=== PATIENT | male | born 1965 | race Caucasian/White ===

== ENCOUNTER 2019-10-25 05:35 | Day surgery (SDC) | payer OTHER, SELFPAY | END 2019-10-25 10:15 | disposition home or self-care (01) | PROVIDERS: Family Provider Nurse Practitioner Family; Visit Provider Podiatrist Foot & Ankle Surgery | DX: S82.831A Other fracture of upper and lower end of right fibula, initial encounter for closed fracture (principal); W17.89XA Other fall from one level to another, initial encounter; Z87.891 Personal history of nicotine dependence; G47.30 Sleep apnea, unspecified; E78.5 Hyperlipidemia, unspecified; M19.90 Unspecified osteoarthritis, unspecified site; E11.42 Type 2 diabetes mellitus with diabetic polyneuropathy; G47.10 Hypersomnia, unspecified; Z90.49 Acquired absence of other specified parts of digestive tract; E11.22 Type 2 diabetes mellitus with diabetic chronic kidney disease; I12.9 Hypertensive chronic kidney disease with stage 1 through stage 4 chronic kidney disease, or unspecified chronic kidney disease; N18.2 Chronic kidney disease, stage 2 (mild); Z79.4 Long term (current) use of insulin | CPT/HCPCS: 27792; 73600; 76000; 80048; 82962; 85025; 96374; 96375; C1713 ×8; J0690; J1100; J2001; J2250; J2405; J2704; J2795; J3010 ×2; J3490 ==

== ENCOUNTER 2019-11-07 14:28 | Outpatient (CLI) | payer OTHER, SELFPAY | END 2019-11-07 14:29 | disposition home or self-care (01) | LOC: SPT 14:28 | PROVIDERS: Family Provider Nurse Practitioner Family; PCP Family Medicine; Visit Provider Podiatrist Foot & Ankle Surgery | DX: Z46.89 Encounter for fitting and adjustment of other specified devices (principal) | CPT/HCPCS: L4361 ==

== ENCOUNTER → 2019-11-22 14:28 | Outpatient (BNVA) | payer OTHER, SELFPAY | PROVIDERS: Family Provider Nurse Practitioner Family; PCP Family Medicine; Visit Provider Podiatrist Foot & Ankle Surgery | DX: Z48.89 Encounter for other specified surgical aftercare (principal); S82.831A Other fracture of upper and lower end of right fibula, initial encounter for closed fracture; X58.XXXA Exposure to other specified factors, initial encounter | CPT/HCPCS: 73610 ==

== ENCOUNTER 2019-12-13 15:35 | Outpatient (CLI) | payer BC, OTHER, SELFPAY | END 2019-12-13 15:36 | disposition home or self-care (01) | LOC: SPT 15:38 | PROVIDERS: PCP Family Medicine; Visit Provider Podiatrist Foot & Ankle Surgery | DX: Z46.89 Encounter for fitting and adjustment of other specified devices (principal) | CPT/HCPCS: 73610; L1902 ==

== ENCOUNTER 2020-02-28 12:31 | Inpatient (IN) | payer BC, SELFPAY ==
[2020-02-28] VITALS (7 sets, daily range): BP systolic 122–137; BP diastolic 62–93; PULSE 72–79; RESP 16–18; TEMP 36.5–36.8; O2SAT 95–99; BMI 31.4
--- NOTE | 2020-02-28 13:03 | ECG_ITS ---
Measurements Intervals [place] Rate: 70 P: 12 MT: 194 QRS: 10 QRSD: 87 T: 17 QT: 349 QTc: 377 SINUS RHYTHM No previous ECG available for comparison Electronically Signed On 02-28-2020 17:16:21 CDT by Richie Gonzalez M.D. [email or web address]
--- NOTE | 2020-02-28 13:04 | ED_ITS ---
Documented by User: KASSIDY Al 02/28/20 14:41 HPI - Extremity Problem General: Chief complaint: Extremity Problem,Nontraumatic Stated complaint: SYNCOPE Time Seen by Provider: 02/28/20 12:54 History of Present Illness: HPI Narrative: Patient sent over via ambulance from the Ortho clinic for admission for gangrene on his left #4 and 5 toe area and also had a vasovagal episode after he was told that he was to maybe have to have his toes cut off. Patient feels fine now denies any problems besides the infection on his 2 toes blood sugar has been high because infection MD Complaint: other (Infected toes) Onset (ago): day(s) Location: left and toe (4. And 5) Radiation: none Exacerbating factors: nothing Associated symptoms: Reports other (Had a vasovagal episode in the clinic today); Deny chest pain, fever(s) or rash Review of Systems Const: Denies: fever, chills or body aches Eyes: Denies: change in vision or blurry vision ENMT: Denies: throat pain or nasal congestion Card: Reports: syncope (Vasovagal episode at clinic after being told he is going to have to have 2 toes possibly amputated); Denies: chest pain or shortness of breath on exertion Resp: Denies: shortness of breath, productive cough or non-productive cough GI: Denies: abdominal pain, nausea or vomiting : Denies: difficulty urinating Musc: Denies: extremity pain Skin/Breast: Reports: skin swelling and sores (Left to outer toes); Denies: rash Neuro: Denies: headache Psych: Denies: anxiety or depression Sonny/Lymph: Denies: easy bruising PFSH ED PFSH: Medical History (Updated 02/28/20 @ 19:52 by Jay Antonio MD, [facility] – [place]) CKD (chronic kidney disease) stage 2, GFR 60-89 ml/min Colostomy hernia DDD (degenerative disc disease) Diabetic peripheral vascular disease Dyslipidemia Entrapment of right ulnar nerve Gout Hypersomnia Hypertension Lung nodule Vitiligo Surgical History (Updated 02/28/20 @ 16:16 by Jolly Johnston MD) H/O colectomy History of ankle surgery Social History Smoking and tobacco status: never smoked Alcohol intake: never Marital status: Current occupational status: employed 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 Const: COMMON NORMALS: no apparent distress, average body habitus and oriented x3 HENMT: COMMON NORMALS: normocephalic HEAD & SCALP: normal to inspection and normocephalic FACE & SINUS: normal facial exam Eye: COMMON NORMALS: conjunctivae normal GENERAL EYE: normal appearance of both eyes CONJUNCTIVA: Yes conjunctivae normal Neck/C-Spine: COMMON NORMALS: no JVD Chest: COMMONS NORMALS: inspection of chest normal Resp: COMMON NORMALS: normal respiratory effort and clear to auscultation bilaterally AUSCULTATION: clear to auscultation bilaterally Cardio: COMMON NORMALS: no JVD, regular rate and regular rhythm RATE: regular rate RHYTHM: regular rhythm GI: COMMON NORMALS: normal to inspection, nondistended, normoactive bowel sounds Extremity: COMMON NORMALS: normal to inspection and full ROM OTHER: Left foot with dressing in place placed by packaging assembler Neuro: COMMON NORMALS: oriented x3 Course Vital Signs: Vital signs: Vital Signs Temperature 98.1 F 02/28/20 12:38 Pulse Rate 72 02/28/20 19:43 Respiratory Rate 18 02/28/20 19:43 Blood Pressure 137/90 02/28/20 19:43 Pulse Oximetry 99 02/28/20 19:43 MDM - Extremity (Nontraumatic) MDM Narrative: Medical decision making narrative: Turned case over to Dr. Antonio shared with him patient's problems symptoms. Lab Data: Labs: Lab Results 02/28/20 02/28/20 02/28/20 Range/Units 13:28 13:28 13:28 WBC 7.7 (4.0-10.0) 10^3/ uL RBC 4.63 (4.1-5.3) 10^6/u L Hgb 14.0 (11.7-16.6) g/dL Hct 42.5 (42.0-52.0) % MCV 91.8 (80-94) fL MCH 30.2 (28.0-34.0) pg MCHC 32.9 (30.0-36.0) g/dL RDW 13.2 (12.1-15.1) % Plt Count 211 (130-400) 10^3/c mm MPV 10.9 H (7.4-10.4) fL Neut % (Auto) 53.8 % Lymph % (Auto) 18.5 % [place] % (Auto) 6.6 % Eos % (Auto) 19.9 % Baso % (Auto) 0.7 % Neut # (Auto) 4.1 (1.8-7.7) 10^3/u L Lymph # (Auto) 1.4 (0.8-4.8) 10^3/u L [place] # (Auto) 0.5 (0.2-0.9) 10^3/u L Eos # (Auto) 1.5 H (0.0-0.8) 10^3/u L Baso # (Auto) 0.1 (0.0-0.1) 10^3/u L Nucleated RBC % (a uto) 0 % Nucleated RBCs # 0.0 /100WBC Sodium 135 L (136-145) mmol/L Potassium 4.8 (3.5-5.1) mmol/L Chloride 97 L (98-107) mmol/L Carbon Dioxide 25 (22-29) mmol/L Anion Gap 17.8 (5-19) BUN 28 H (6-20) mg/dL Creatinine 1.5 H (0.7-1.2) mg/dL GFR Calculation 48.6 L (90-130) mL/min Glucose 332 H (65-115) mg/dL Calculated Osmolal ity 290 (285-295) mOsm/k g Lactic Acid 1.3 (0.5-2.2) mmol/L Calcium 10.8 H (8.5-10.5) mg/dL Total Bilirubin 0.5 (0.15-1.2) mg/dL AST 25 (0-40) U/L ALT 27 (0-41) U/L Alkaline Phosphata se 67 (40-130) IU/L Total Protein 7.3 (6.6-8.7) g/dL Albumin 3.7 (3.5-5.2) g/dL Globulin 3.6 (1.3-4.6) g/dL Urine Color (Yellow) Urine Appearance (CLEAR) Urine pH (5-7) Ur Specific Gravit y (1.005-1.030) Urine Protein (Negative) Urine Glucose (UA) (Normal) Urine Ketones (Negative) Urine Blood (Negative) Urine Nitrate (Negative) Urine Bilirubin (NEGATIVE) Urine Urobilinogen (Negative) mg/dL Ur Leukocyte Aaliyah ase (Negative) 02/28/20 Range/Units 14:15 WBC (4.0-10.0) 10^3/ uL RBC (4.1-5.3) 10^6/u L Hgb (11.7-16.6) g/dL Hct (42.0-52.0) % MCV (80-94) fL MCH (28.0-34.0) pg MCHC (30.0-36.0) g/dL RDW (12.1-15.1) % Plt Count (130-400) 10^3/c mm MPV (7.4-10.4) fL Neut % (Auto) % Lymph % (Auto) % [place] % (Auto) % Eos % (Auto) % Baso % (Auto) % Neut # (Auto) (1.8-7.7) 10^3/u L Lymph # (Auto) (0.8-4.8) 10^3/u L [place] # (Auto) (0.2-0.9) 10^3/u L Eos # (Auto) (0.0-0.8) 10^3/u L Baso # (Auto) (0.0-0.1) 10^3/u L Nucleated RBC % (a uto) % Nucleated RBCs # /100WBC Sodium (136-145) mmol/L Potassium (3.5-5.1) mmol/L Chloride (98-107) mmol/L Carbon Dioxide (22-29) mmol/L Anion Gap (5-19) BUN (6-20) mg/dL Creatinine (0.7-1.2) mg/dL GFR Calculation (90-130) mL/min Glucose (65-115) mg/dL Calculated Osmolal ity (285-295) mOsm/k g Lactic Acid (0.5-2.2) mmol/L Calcium (8.5-10.5) mg/dL Total Bilirubin (0.15-1.2) mg/dL AST (0-40) U/L ALT (0-41) U/L Alkaline Phosphata se (40-130) IU/L Total Protein (6.6-8.7) g/dL Albumin (3.5-5.2) g/dL Globulin (1.3-4.6) g/dL Urine Color Yellow (Yellow) Urine Appearance Clear (CLEAR) Urine pH 7 (5-7) Ur Specific Gravit y 1.010 (1.005-1.030) Urine Protein Neg (Negative) Urine Glucose (UA) 4+ H (Normal) Urine Ketones Negative (Negative) Urine Blood Neg (Negative) Urine Nitrate Negative (Negative) Urine Bilirubin Neg (NEGATIVE) Urine Urobilinogen Norm (Negative) mg/dL Ur Leukocyte Aaliyah ase Negative (Negative) EKG Data^: EKG 1: EKG interpretation date: 02/28/20 EKG interpretation time: 14:04 Interpretation: Normal sinus rhythm 70 bpm 194 ms on VT interval and QRS duration 77 ms Discharge Plan Discharge Patient Disposition: Admitted As Inpatient Admit Provider: Jolly Johnston Clinical Impression: Gangrene of left foot, Non-pressure chronic ulcer of other part of left foot with necrosis of muscle, Cellulitis of left foot Condition: Stable Interventions: ED Discharge Assessment Last Done: 02/28/20 19:43 ED Charges Last Done: 02/28/20 19:43 Discharge Date/Time: 02/28/20 19:44 Sign Out Sign Out Data: Patient Sign Out occurred on 02/28/20 at 17:59. Patient's care was discussed, and care was transferred from to Jay Antonio MD, [facility] – [place]. Coding Level of Care Code ED Humanities Division Chair for Chg Fwd Exam Comprehensive Documented by User: Jay Antonio MD, MSM 02/28/20 19:52 HPI - Extremity Problem General: Chief complaint: Extremity Problem,Nontraumatic Stated complaint: SYNCOPE Time Seen by Provider: 02/28/20 12:54 [facility] ED PFSH: Medical History (Updated 02/28/20 @ 19:52 by Jay Antonio MD, [facility] – [place]) CKD (chronic kidney disease) stage 2, GFR 60-89 ml/min Colostomy hernia DDD (degenerative disc disease) Diabetic peripheral vascular disease Dyslipidemia Entrapment of right ulnar nerve Gout Hypersomnia Hypertension Lung nodule Vitiligo Surgical History (Updated 02/28/20 @ 16:16 by Jolly Johnston MD) H/O colectomy History of ankle surgery Social History Smoking and tobacco status: never smoked Alcohol intake: never Marital status: Current occupational status: employed 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 Johnston. She is to hospitalist and she kindly accepted the patient to her service. Vital Signs: Vital signs: Vital Signs Temperature 98.1 F 02/28/20 12:38 Pulse Rate 72 02/28/20 19:43 Respiratory Rate 18 02/28/20 19:43 Blood Pressure 137/90 02/28/20 19:43 Pulse Oximetry 99 02/28/20 19:43 MDM - Extremity (Nontraumatic) 2 MDM Narrative: Medical decision making narrative: 54-year-old gentleman with a diabetic ulcer who was seen by the packaging assembler today. He requires amputation of some of his toes of his left foot secondary to gangrene. History and physical examination documented by the nurse practitioner. Kindly refer to his note for those. Lab Data: Labs: Lab Results 02/28/20 02/28/20 02/28/20 Range/Units 13:28 13:28 13:28 WBC 7.7 (4.0-10.0) 10^3/ uL RBC 4.63 (4.1-5.3) 10^6/u L Hgb 14.0 (11.7-16.6) g/dL Hct 42.5 (42.0-52.0) % MCV 91.8 (80-94) fL MCH 30.2 (28.0-34.0) pg MCHC 32.9 (30.0-36.0) g/dL RDW 13.2 (12.1-15.1) % Plt Count 211 (130-400) 10^3/c mm MPV 10.9 H (7.4-10.4) fL Neut % (Auto) 53.8 % Lymph % (Auto) 18.5 % [place] % (Auto) 6.6 % Eos % (Auto) 19.9 % Baso % (Auto) 0.7 % Neut # (Auto) 4.1 (1.8-7.7) 10^3/u L Lymph # (Auto) 1.4 (0.8-4.8) 10^3/u L [place] # (Auto) 0.5 (0.2-0.9) 10^3/u L Eos # (Auto) 1.5 H (0.0-0.8) 10^3/u L Baso # (Auto) 0.1 (0.0-0.1) 10^3/u L Nucleated RBC % (a uto) 0 % Nucleated RBCs # 0.0 /100WBC Sodium 135 L (136-145) mmol/L Potassium 4.8 (3.5-5.1) mmol/L Chloride 97 L (98-107) mmol/L Carbon Dioxide 25 (22-29) mmol/L Anion Gap 17.8 (5-19) BUN 28 H (6-20) mg/dL Creatinine 1.5 H (0.7-1.2) mg/dL GFR Calculation 48.6 L (90-130) mL/min Glucose 332 H (65-115) mg/dL Calculated Osmolal ity 290 (285-295) mOsm/k g Lactic Acid 1.3 (0.5-2.2) mmol/L Calcium 10.8 H (8.5-10.5) mg/dL Total Bilirubin 0.5 (0.15-1.2) mg/dL AST 25 (0-40) U/L ALT 27 (0-41) U/L Alkaline Phosphata se 67 (40-130) IU/L Total Protein 7.3 (6.6-8.7) g/dL Albumin 3.7 (3.5-5.2) g/dL Globulin 3.6 (1.3-4.6) g/dL Urine Color (Yellow) Urine Appearance (CLEAR) Urine pH (5-7) Ur Specific Gravit y (1.005-1.030) Urine Protein (Negative) Urine Glucose (UA) (Normal) Urine Ketones (Negative) Urine Blood (Negative) Urine Nitrate (Negative) Urine Bilirubin (NEGATIVE) Urine Urobilinogen (Negative) mg/dL Ur Leukocyte Aaliyah ase (Negative) 02/28/20 Range/Units 14:15 WBC (4.0-10.0) 10^3/ uL RBC (4.1-5.3) 10^6/u L Hgb (11.7-16.6) g/dL Hct (42.0-52.0) % MCV (80-94) fL MCH (28.0-34.0) pg MCHC (30.0-36.0) g/dL RDW (12.1-15.1) % Plt Count (130-400) 10^3/c mm MPV (7.4-10.4) fL Neut % (Auto) % Lymph % (Auto) % [place] % (Auto) % Eos % (Auto) % Baso % (Auto) % Neut # (Auto) (1.8-7.7) 10^3/u L Lymph # (Auto) (0.8-4.8) 10^3/u L [place] # (Auto) (0.2-0.9) 10^3/u L Eos # (Auto) (0.0-0.8) 10^3/u L Baso # (Auto) (0.0-0.1) 10^3/u L Nucleated RBC % (a uto) % Nucleated RBCs # /100WBC Sodium (136-145) mmol/L Potassium (3.5-5.1) mmol/L Chloride (98-107) mmol/L Carbon Dioxide (22-29) mmol/L Anion Gap (5-19) BUN (6-20) mg/dL Creatinine (0.7-1.2) mg/dL GFR Calculation (90-130) mL/min Glucose (65-115) mg/dL Calculated Osmolal ity (285-295) mOsm/k g Lactic Acid (0.5-2.2) mmol/L Calcium (8.5-10.5) mg/dL Total Bilirubin (0.15-1.2) mg/dL AST (0-40) U/L ALT (0-41) U/L Alkaline Phosphata se (40-130) IU/L Total Protein (6.6-8.7) g/dL Albumin (3.5-5.2) g/dL Globulin (1.3-4.6) g/dL Urine Color Yellow (Yellow) Urine Appearance Clear (CLEAR) Urine pH 7 (5-7) Ur Specific Gravit y 1.010 (1.005-1.030) Urine Protein Neg (Negative) Urine Glucose (UA) 4+ H (Normal) Urine Ketones Negative (Negative) Urine Blood Neg (Negative) Urine Nitrate Negative (Negative) Urine Bilirubin Neg (NEGATIVE) Urine Urobilinogen Norm (Negative) mg/dL Ur Leukocyte Aaliyah ase Negative (Negative) Discharge Plan Discharge Patient Disposition: Admitted As Inpatient Admit Provider: Jolly Johnston Clinical Impression: Gangrene of left foot, Non-pressure chronic ulcer of other part of left foot with necrosis of muscle, Cellulitis of left foot Condition: Stable Interventions: ED Discharge Assessment Last Done: 02/28/20 19:43 ED Charges Last Done: 02/28/20 19:43 Discharge Date/Time: 02/28/20 19:44 Sign Out Sign Out Data: Patient Sign Out occurred on 02/28/20 at 17:59. Patient's care was discussed, and care was transferred from to Jay Antonio MD, MSM. Coding Level of Care Code ED Humanities Division Chair for Jarod Fwd Exam Comprehensive
--- NOTE | 2020-02-28 13:04 | XR_ITS ---
WS: [id number] XR chest 1V portable [id number] REASON FOR EXAM: toe gangrene FINDINGS: The heart and mediastinal interfaces normal. The lung barcenas are well well aerated. No definite pneumonia, pleural effusion, pulmonary edema, or m ass effect. The hilum and apices are normal. XR/XR chest 1V portable [id number] IMPRESSION: Negative chest for active pathology.
--- NOTE | 2020-02-28 13:37 | CT_ITS ---
WS: [id number] CT LEFT FOOT WITHOUT CONTRAST. HISTORY: Gangrene/cellulitis toes 4,5 Technique: All CT scans at [facility] use at least one of these dose optimization techniq ues: automated exposure control; mA and/or kV adjustment per patient size (includes targeted exams wh ere dose is matched to clinical indication); or iterative reconstruction. DLP: 528.56 mGy.cm COMPARISON: None available. No fractures or subluxation. No significant changes in the bone to suggest osteomyelitis. There is mi ld soft tissue thickening around the midfoot and metatarsals. No foreign bodies. CT/CT foot LT wo con* [id number] IMPRESSION: 1. No osteomyelitis identified by CT. 2. Soft tissue edema consistent with cellulitis surrounding the mid and distal foot. No bone destruction. For further evaluation bones consider nonurgent MRI follow-up with contrast.
[2020-02-28 13:56] LABS: Basophils # 0.1 10^3/uL (0.0-0.1); Basophils % 0.7 %; Eosinophils # 1.5 10^3/uL (0.0-0.8); Eosinophils % 19.9 %; Hematocrit 42.5 % (42.0-52.0); Lymphocytes # 1.4 10^3/uL (0.8-4.8); Lymphocytes % 18.5 %; Mean Corpuscular HGB Conc 32.9 g/dL (30.0-36.0); Mean Corpuscular Hemoglobin 30.2 pg (28.0-34.0); Mean Corpuscular Volume 91.8 fL (80-94); Mean Platelet Volume 10.9 fL (7.4-10.4); Monocytes # 0.5 10^3/uL (0.2-0.9); Monocytes % 6.6 %; Neutrophils # 4.1 10^3/uL (1.8-7.7); Neutrophils % 53.8 %; Nucleated Red Blood Cells % 0 %; Platelet Count 211 10^3/cmm (130-400); Red Blood Count 4.63 10^6/uL (4.1-5.3); Red Cell Distribution Width 13.2 % (12.1-15.1); White Blood Count 7.7 10^3/uL (4.0-10.0)
[2020-02-28 14:03] LABS: Alanine Aminotransferase 27 U/L (0-41); Albumin Level 3.7 g/dL (3.5-5.2); Alkaline Phosphatase 67 IU/L (40-130); Anion Gap 17.8 (5-19); Aspartate Amino Transferase 25 U/L (0-40); Blood Urea Nitrogen 28 mg/dL (6-20); Calcium 10.8 mg/dL (8.5-10.5); Carbon Dioxide 25 mmol/L (22-29); Chloride 97 mmol/L (98-107); Globulin 3.6 g/dL (1.3-4.6); Glomerular Filtration Rate 48.6 mL/min (90-130); Glucose 332 mg/dL (65-115); Osmolality Calculated 290 mOsm/kg (285-295); Potassium 4.8 mmol/L (3.5-5.1); Sodium 135 mmol/L (136-145); Total Bilirubin 0.5 mg/dL (0.15-1.2); Total Protein 7.3 g/dL (6.6-8.7)
[2020-02-28 14:04] LABS: Lactic Sepsis W/Reflex 1.3 mmol/L (0.5-2.2)
--- NOTE | 2020-02-28 14:23 | PC.NURSE ---
PT AMBULATED TO RESTROOM , CHANGES COLOSTOMY BAG WITHOUT DIFFICULTY. GIVES CLEAN CATCH URINE SAMPLE.
[2020-02-28 14:25] LABS: Add Urine Microscopic? NO
[2020-02-28 15:05] LABS: Bilirubin Urine Neg (NEGATIVE); Blood Urine Neg (Negative); Glucose Urine UA 4+ (Normal); Ketones Urine Negative (Negative); Leukocyte Esterase Urine Negative (Negative); Nitrate Urine Negative (Negative); Protein Urine Neg (Negative); Urine Appearance Clear (CLEAR); Urine Color Yellow (Yellow); Urobilinogen Urine Norm (Negative); pH Urine 7 (5-7)
--- NOTE | 2020-02-28 16:02 | PM.HP ---
Providers/Chief Complaint Admitting Physician: Jolly Johnston MD Primary Care Provider: Josi Willis MD Chief Complaint: SYNCOPE History of Present Illness ..Hans Forbes is a 54 year old male with PMH CKD, ulecrative colitis s/p colectomy with colostomy 2014, diabetic peripheral vascular disease per chart review, HLD, gout, HTN, DM, lung nodule who follows with dr. yousif for ankle fracture on R leg that was repaired in Sep 2019. He states that at the end of last week he began to experience soreness and noticed redness at the left plantar forefoot on on Thursday(today is Thursday). Not remember any preceding trauma, however does state that he has been wearing slippers with a pencil and may have had some spine injuries. He saw Dr. Yousif in the clinic today and was noted to have a cellulitis of the forefoot, and also a gangrenous appearance in the fourth left webspace. Upon hearing the news of gangrene, and possibility of amputation, he started to feel very lightheaded and appears to have had a vasovagal episode in the clinic today. He [place] [facility] [place] Upon arrival to the ED he is noted to be completely awake alert and oriented. His blood pressure is stable at 136/79. Heart rate is 74/min. He denies any chest pain. He is saturating 96% on room air. . Glucose is at 330. He has not had a troponin drawn. He evidence of osteomyelitis. There is extensive soft tissue edema consistent with cellulitis surrounding the mid and distal foot. No bony destruction is noted. Cr is at 1.5, baseline 1.2 -1.4. no c/o fever. Review of Systems General: Reports: 10 or more systems reviewed and unremarkable except in HPI and below Const: Denies: fever, chills or body aches Eyes: Denies: change in vision, blurry vision or photophobia ENMT: Reports: hoarseness; Denies: throat pain, enlarged tonsils, painful swallowing or nasal congestion Card: Denies: chest pain, palpitations, irregular heart rhythm, edema, swelling of feet/ankles, lightheadedness, pre-syncope, shortness of breath on exertion or shortness of breath when lying down Resp: Denies: shortness of breath, productive cough, non-productive cough, wheezing, stridor, pain on inspiration, change in phlegm color, coughing up blood or chest congestion GI: Denies: abdominal pain, nausea, vomiting, vomiting blood, coffee grounds in vomit, difficulty swallowing, heartburn/indigestion, diarrhea, constipation, cramping, change in stool character, blood in stool or black tarry stool : Denies: flank pain, painful urination, urinary frequency, urinary urgency, urinary hesitancy or blood in urine Musc: Denies: neck pain, back pain, extremity pain, joint swelling, joint warmth or deformity Neuro: Denies: headache, numbness in extremities, weakness in extremities, changes in sensation, difficulty walking, frequent falls, dizziness, vertigo, behavioral changes, slurred speech or seizure-like activity Psych: Denies: anxiety, depression, suicidal ideation or homicidal ideation Endo: Denies: excessive urination, excessive thirst, tired all the time, cold intolerance or hot flashes Sonny/Lymph: Denies: easy bruising or easy bleeding Medications/Allergies Home Medications Medication Instructions Recorded Confirmed Last Taken Type calcium carbonate 600 mg calcium 600 mg PO QPM 11/07/19 02/28/20 Unknown History (1,500 mg) tablet cam walker #1 ea 11/07/19 02/28/20 Unknown Rx PTT SUPINATOR #1 ea 12/13/19 02/28/20 Unknown Rx enalapril maleate 20 mg tablet 20 mg PO BID #180 tab 12/28/19 02/28/20 02/28/20 Rx sitagliptin 50 mg-metformin 1,000 1 tab PO BID #60 tab 01/17/20 02/28/20 02/28/20 Rx mg tablet pregabalin 150 mg capsule 150 mg PO TID #90 cap 01/30/20 02/28/20 02/28/20 Rx ciprofloxacin HCl 500 mg tablet 500 mg PO Q12H 14 Days #28 tab 02/27/20 02/28/20 02/28/20 02:00 Rx doxycycline hyclate 100 mg capsule 100 mg PO BID 14 Days #28 cap 02/27/20 02/28/20 02/28/20 02:00 Rx Fish Oil 1 cap PO BID 02/28/20 02/28/20 Unknown History Life Renew 2 cap PO BID 02/28/20 02/28/20 Unknown History Zyrtec 10 mg PO DAILY 02/28/20 02/28/20 Unknown History allopurinol 300 mg PO DAILY 02/28/20 02/28/20 Unknown History aspirin 325 mg PO DAILY 02/28/20 02/28/20 Unknown History cinnamon bark [Cinnamon] 1,000 mg PO BID 02/28/20 02/28/20 Unknown History glimepiride 4 mg PO BID 02/28/20 02/28/20 02/28/20 History magnesium oxide See Rx Instructions .ROUTE .COMPLEX 02/28/20 02/28/20 Unknown History multivit with min-folic acid 200 mcg PO BID 02/28/20 02/28/20 Unknown History [Adult Multivitamin Gummies] potassium gluconate 595 mg PO DAILY 02/28/20 02/28/20 Unknown History Allergies Allergy/AdvReac Type Severity Reaction Status Date / Time Sulfa (Sulfonamide Allergy Unknown Unknown Verified 02/28/20 11:25 Antibiotics) PFSH Acute PFSH: Medical History (Updated 02/28/20 @ 16:19 by Jolly Johnston MD) CKD (chronic kidney disease) stage 2, GFR 60-89 ml/min Colostomy hernia DDD (degenerative disc disease) Diabetic peripheral vascular disease Dyslipidemia Entrapment of right ulnar nerve Gout Hypersomnia Hypertension Lung nodule Vitiligo Surgical History (Updated 02/28/20 @ 16:16 by Jolly Johnston MD) H/O colectomy History of ankle surgery Social History Smoking and tobacco status: never smoked Alcohol intake: never Marital status: Current occupational status: employed 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 Based on the pictures that patient has shown me, there appears to be extensive erythema and swelling over the entire left forefoot. Is also noted to be some pus tracking along the plantar surface of the foot especially in the fourth interdigital space. Data : 02/28/20 13:28 02/28/20 13:28 Micro: Microbiology 02/28/20 13:28 Blood Culture - Preliminary Blood SPECIMEN COLLECTED 02/28/20 13:40 Blood Culture - Preliminary Blood SPECIMEN COLLECTED A&P Assessment and plan (1) Diabetic peripheral neuropathy associated with type 2 diabetes mellitus: Status: Acute (2) Gangrene of left foot: Status: Acute (3) Cellulitis of left foot: Status: Acute (4) Hypertension: Status: Acute (5) Dyslipidemia: Status: Acute (6) Colostomy hernia: Status: Acute (7) Syncope: Status: Acute Additional A&P Information admit to [facility]. #Cellulitis and gangrene of left foot Per patient history all of his symptoms appear to have started 3 to 4 days ago. He is unaware of any preceding trauma, however concedes that he may have had some injuries from small stones and wearing things. First. He was empirically started on doxycycline and ciprofloxacin as outpatient, however he has only had 1 dose of age. For now we will start him on broad-spectrum antibiotics which will include coverage for both Pseudomonas and MRSA. Next per patient history cultures were taken at Dr. Yousif's office today. If there is plan to go to the OR tomorrow for further debridement, will request more cultures including bone cultures. CT of the foot was performed which overtly does not appear to show any evidence of osteomyelitis. #History of mge-nguudyh-nyfoertvc diabetes mellitus His last A1c is noted to be 9.2 from October of this year. We will recheck again. As of now we will hold Janumet and place him on insulin sliding scale. #Hypertension: On enalapril 20 mg p.o. twice daily as his home medication. His creatinine appears to be at baseline. The same for now. He does not show any current signs of overt sepsis. #CKD creatinine is at baseline #History of syncope earlier this morning and Dr. Kinney's office. Per patient history and may see the sequence of events, appears most likely to be a vasovagal syncopal episode. Patient did not have any complains of chest pain at the time. However given he has significant risk factors for coronary disease, will go ahead and obtain a troponin series and EKG. Will monitor on telemetry. Per patient he last had a similar event of syncope in 2014 as a result of dehydration when he had ulcerative colitis flares. Even now he states he needs to drink up to 6 to 7 L of water every day to maintain his fluid status. However today it is unlikely that he was dehydrated. He was not hypoglycemic during this episode. #History of gout we will continue allopurinol CODE STATUS is full code DVT prophylaxis: SCDs, will start heparin post debridement Attestations Medical Necessity Statement*: admit in view of new gangrene, need for iv antibiotics and surgical debridement. Anticipate >2midnight Coding Level of Care Code Acute Cocoa Room Operator for Chg Fwd Diagnoses Diabetic peripheral neuropathy associated with type 2 diabetes mellitus E11.42 Gangrene of left foot I96 Cellulitis of left foot L03.116 Hypertension I10 Dyslipidemia E78.5 Colostomy hernia K94.09 Syncope R55
--- NOTE | 2020-02-28 16:36 | ECG_ITS ---
Measurements Intervals [place] Rate: 75 P: 18 LA: 173 QRS: 9 QRSD: 97 T: 10 QT: 366 QTc: 411 SINUS RHYTHM Possible INFERIOR MYOCARDIAL INFARCTION , PROBABLY OLD [40+ ms Q WAVE AND/OR ST/T AB ABNORMALITY IN II/aVF] Compared to ECG 02/28/2020 14:04:29 Myocardial infarct finding now present Electronically Signed On 02-29-2020 17:10:02 CDT by Jim Leon M.D. [id number]
[2020-02-28 17:34] LABS: Troponin(5th) Baseline 14 ng/mL (0-15)
--- NOTE | 2020-02-28 17:34 | PC.NURSE ---
PT EATING SANDWICH, IVPB ANTIBIOTICS INFUSING.
--- NOTE | 2020-02-28 18:36 | ECG_ITS ---
Measurements Intervals [place] Rate: 75 P: 18 ID: 173 QRS: 9 QRSD: 97 T: 10 QT: 366 QTc: 411 SINUS RHYTHM INFERIOR MYOCARDIAL INFARCTION , PROBABLY OLD [40+ ms Q WAVE AND/OR ST/T AB ABNORMALITY IN II/aVF] Compared to ECG 02/28/2020 14:04:29 Myocardial infarct finding now present Electronically Signed On 02-29-2020 17:13:48 CDT by Jim Leon M.D. [id number]
[2020-02-28 19:55] LABS: Troponin 5 2HR 13.28 ng/mL (0-15)
[2020-02-28 20:16] LABS: Troponin 5 2HR Delta -0.72 ABS# (0-10)
[2020-02-28 21:14] LABS: Glucose Point of Care 431 mg/dL (70-110)
[2020-02-28] MEDS: piperacillin-tazobactam 3.375 GM in sodium chloride 0.9% (plus) 50 ML IV (22:52)
[2020-02-28 23:03] LABS: Troponin 5 6HR 13.46 ng/mL (0-15)
[2020-02-28 23:06] LABS: Troponin 5 6HR Delta -0.54 ng/L (0-12)
[2020-02-28] MEDS: LYRICA 150 MG 1 EACH PO (23:17)
--- NOTE | 2020-02-29 01:27 | PC.NURSE ---
Refusing morning labs.
[2020-02-29 04:00] VITALS: BP 131/75; PULSE 74; RESP 18; TEMP 36.6; O2SAT 95
[2020-02-29] MEDS: cetirizine 10 mg Tablet PO (05:40)
[2020-02-29] MEDS: acetaminophen 325 mg Tablet 650 MG PO (05:40)
[2020-02-29] MEDS: piperacillin-tazobactam 3.375 GM in sodium chloride 0.9% (plus) 50 ML IV ×2 (06:53→17:55)
[2020-02-29 07:23] LABS: Glucose Point of Care 224 mg/dL (70-110)
[2020-02-29 08:00] VITALS: BP 127/77; PULSE 70; RESP 18; TEMP 36.9; O2SAT 95
[2020-02-29] MEDS: allopurinol 300 mg Tablet PO (09:07)
[2020-02-29] MEDS: aspirin 325 mg Tablet PO (09:07)
[2020-02-29] MEDS: LYRICA 150 MG 1 EACH PO ×2 (09:07→19:54)
[2020-02-29] MEDS: pregabalin 150 mg Capsule PO (09:22)
--- NOTE | 2020-02-29 10:06 | PC.CHAP ---
Pastoral Care Encounter/Spiritual Assessment Type of Contact [] Declined it systems administrator visit [] Patient/Family/Request visit [] Outpatient visit [] Follow-up visit [] Physician referral [] Code/Alert [x] Routine visit [] Staff referral [] Actively dying [] Patient sleeping [] Family support [] [] Out of room [] Palliative care [] [] Receiving care in room [] Pre-surgical visit [] Trauma [] Long length of stay [] ICU visit [] Other: Relational/Emotional Strength [] Patient feels connected with others/family/visitors/staff [] Distress [] Loneliness/isolation [] Abandonment Spirituality of Patient [] Person of [place] [] Attends Mosque of their [place] [] Believes in Prayer [] Reads Bible or Faith materials [] There are Spiritual issues to be addressed Diffusion Furnace Operator Interventions [x] Prayer [] Active listening [] Non-anxious presence [] Spiritual/emotional support [] Crisis/trauma care [] Spiritual counseling [] Bereavement support [] Provided bereavement packet [] Provided Bible/devotional materials [] Provided toy/stuffed animal, coloring book to patient or family member [] Provided Communion [] Anointing/[place] [] Salvation [x] Completed spiritual assessment [] Other: Impact on Illness or Injury [] Angry [] Fearful [] Anxious [] Often cries [] Exhaustion [] Unable to work [] Unable to attend druze [] Unable to walk/stand [] Unable to read [] Unable to drive [] Unable to eat/drink [] Unable to sleep [] Unable to be with family [] Patient intubated [] Other: Summary Patient not a [place] based man, but so thankful he gets to keep his toes. So thankful for the infusion given, that resulted in correcting issue. Patient was so thankful for breakfast Time spent with patient 10 min
[2020-02-29 11:38] VITALS: BP 126/78; PULSE 75; RESP 18; TEMP 37; O2SAT 93
[2020-02-29 12:01] LABS: Glucose Point of Care 311 mg/dL (70-110)
--- NOTE | 2020-02-29 14:55 | PM.CONSULT ---
Providers/Reason For Consult Consulting Physican/Specialty*: Esteban Yousif D.P.M. Reason for Consult*: Diabetic foot infection left foot Attending Physician: Jolly Johnston MD Primary Care Provider: Josi Willis MD History of Present Illness History of Present Illness Mr. Forbes is a 54-year-old zaf-rsoseot-iqpxgqroj diabetic male, I have been following Mr. Forbes since his right ankle fracture September 2019. I performed ORIF right distal fibula fracture on October 25, 2019 his postoperative recovery was uneventful. He has at this point transition into regular weightbearing and activity. 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 He states that at the end of last week he began to experience soreness and noticed redness at the left plantar forefoot. He contacted my clinic yesterday requesting antibiotics stating that he had cellulitis of his left foot. He was able to send me pictures of his left foot from home after which I prescribed doxycycline 100 mg twice daily and ciprofloxacin 500 mg twice daily he took his first dose Thursday night. I had arranged close follow-up and he presented in clinic Thursday, had a syncopal episode was transferred to the ED via EMS. Syncopal episode was likely due to anxiety and coping with bad news of his severity of his infection. Recommended admission for broad-spectrum IV antibiotics. Meds/Allergies Home Medications and Allergies Home Medications Medication Instructions Recorded Confirmed Last Taken Type calcium carbonate 600 mg calcium 600 mg PO QPM 11/07/19 02/28/20 Unknown History (1,500 mg) tablet cam walker #1 ea 11/07/19 02/28/20 Unknown Rx PTT SUPINATOR #1 ea 12/13/19 02/28/20 Unknown Rx enalapril maleate 20 mg tablet 20 mg PO BID #180 tab 12/28/19 02/28/20 02/28/20 Rx sitagliptin 50 mg-metformin 1,000 1 tab PO BID #60 tab 01/17/20 02/28/20 02/28/20 Rx mg tablet pregabalin 150 mg capsule 150 mg PO TID #90 cap 01/30/20 02/28/20 02/28/20 Rx ciprofloxacin HCl 500 mg tablet 500 mg PO Q12H 14 Days #28 tab 02/27/20 02/28/20 02/28/20 02:00 Rx doxycycline hyclate 100 mg capsule 100 mg PO BID 14 Days #28 cap 02/27/20 02/28/20 02/28/20 02:00 Rx Fish Oil 1 cap PO BID 02/28/20 02/28/20 Unknown History Life Renew 2 cap PO BID 02/28/20 02/28/20 Unknown History Zyrtec 10 mg PO DAILY 02/28/20 02/28/20 Unknown History allopurinol 300 mg PO DAILY 02/28/20 02/28/20 Unknown History aspirin 325 mg PO DAILY 02/28/20 02/28/20 Unknown History cinnamon bark [Cinnamon] 1,000 mg PO BID 02/28/20 02/28/20 Unknown History glimepiride 4 mg PO BID 02/28/20 02/28/20 02/28/20 History magnesium oxide See Rx Instructions .ROUTE .COMPLEX 02/28/20 02/28/20 Unknown History multivit with min-folic acid 200 mcg PO BID 02/28/20 02/28/20 Unknown History [Adult Multivitamin Gummies] potassium gluconate 595 mg PO DAILY 02/28/20 02/28/20 Unknown History Allergies Allergy/AdvReac Type Severity Reaction Status Date / Time Sulfa (Sulfonamide Allergy Unknown Unknown Verified 02/28/20 11:25 Antibiotics) Current Medications Current Medications Generic Name Dose Route Start Last Admin Trade Name Freq PRN Reason Stop Dose Admin Acetaminophen 650 mg 02/28/20 16:29 02/29/20 05:40 Tylenol PO 650 mg Q6H PRN Administration Mild/Mod Pain Or Temp >/= 101 Allopurinol 300 mg 02/29/20 09:00 02/29/20 09:07 Zyloprim PO 300 mg DAILY DONNY Administration Aspirin 325 mg 02/29/20 09:00 02/29/20 09:07 Aspirin PO 325 mg DAILY DONNY Administration Cetirizine HCl 10 mg 02/28/20 16:31 02/29/20 05:40 Zyrtec PO 10 mg DAILY PRN Administration ALLERGIES Enalapril Maleate 20 mg 02/28/20 18:00 02/29/20 09:07 Vasotec PO 20 mg BID DONNY Administration Piperacillin Sod/Tazobactam 50 mls @ 12.5 mls/hr 02/28/20 18:00 02/29/20 12:22 Sod 3.375 gm/ Sodium Chloride IV Infused Q8H DONNY Infusion Protocol Vancomycin HCl 1,500 mg/ 250 mls @ 166.667 mls/hr 02/28/20 17:15 02/29/20 06:53 Sodium Chloride IV Infused Q12H DONNY Infusion Protocol Insulin Aspart 0 unit 02/28/20 18:00 02/29/20 12:21 Novolog SUBCUT 12 unit WM&BEDTIME DONNY Administration Protocol Non-Formulary Medication 1 cap 02/28/20 18:00 02/29/20 08:04 Fish Oil PO Not Given BID DONNY Lyrica 150 Mg 1 each 02/28/20 22:00 02/29/20 09:07 Capsule PO 1 each TID DONNY Administration PFSH Acute PFSH: Medical History (Updated 02/28/20 @ 19:52 by Jay Antonio MD, [facility]) CKD (chronic kidney disease) stage 2, GFR 60-89 ml/min Colostomy hernia DDD (degenerative disc disease) Diabetic peripheral vascular disease Dyslipidemia Entrapment of right ulnar nerve Gout Hypersomnia Hypertension Lung nodule Vitiligo Surgical History (Updated 02/28/20 @ 16:16 by Jolly Johnston MD) H/O colectomy History of ankle surgery Social History Smoking and tobacco status: never smoked Alcohol intake: never Marital status: Current occupational status: employed 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 The following is a focused bilateral lower extremity exam. VASCULAR: Dorsalis pedis and posterior tibial arteries palpable +2. Capillary refill time less than 3 seconds to the distal hallux bilaterally. Calf is supple and nontender proximally and distally. Edema to the left forefoot. Edema to the right ankle laterally. NEUROLOGICAL: Protective sensation diminished to the lower extremity. DERMATOLOGICAL: Full-thickness wound left foot fourth webspace with macerated border, devitalized tissue probes to bone at the fourth toe lateral aspect has fibrotic base, pungent malodor, cellulitis streaking to the dorsum of the foot. No proximal lymphangitic streaking up the leg at this time. MUSCULOSKELETAL: Tenderness to palpation at left foot fourth webspace. There is a reducible hammertoe deformity of the left fifth toe. Ankle joint dorsiflexion in neutral. Muscle strength 5 out of 5 in all 3 cardinal planes. No pain with posterior calf squeeze. Feet Bottom: 1. Wound sub-fourth metatarsal head exposed to fat layer appears stable at this time. Const: Feet w/LR Ind Top: 1. Full-thickness wound with cellulitis left fourth webspace wound was at the lateral aspect of the fourth toe exposed to fat layer. Data Micro: Micro: Microbiology 02/28/20 13:28 Blood Culture - Pr eliminary Blood NEGATIVE TO MARIA LUISA E 02/28/20 13:40 Blood Culture - Pr eliminary Blood NEGATIVE TO MARIA LUISA E A&P Assessment and plan (1) Diabetic peripheral neuropathy associated with type 2 diabetes mellitus: Status: Acute (2) Gangrene of left foot: Status: Acute (3) Non-pressure chronic ulcer of other part of left foot with necrosis of muscle: Status: Acute (4) Cellulitis of left foot: Status: Acute Very positive response to broad-spectrum IV antibiotics overnight in comparison to yesterday's evaluation there is significant improvement in the appearance of the patient's left foot wound, no further purulent drainage expressed, decrease in intensity of cellulitis of the left foot. Given his improvement to parenteral antibiotics recommending holding off on MRI, no plans for surgical debridement at this time. Excisional debridement was performed in clinic yesterday as well as this morning bedside. I did confirm that aerobic and anaerobic wound cultures taken in podiatry clinic were received by the laboratory and are being processed. Dressing with alginate to the left plantar forefoot wound and Betadine wet-to-dry at the webspace. Planning for 2 to 3 days of IV antibiotics and possibly discharge on oral pending his response. Coding Level of Care Code Acute Crystal Grinder for [facility] Fwd Diagnoses Diabetic peripheral neuropathy associated with type 2 diabetes mellitus E11.42 Gangrene of left foot I96 Non-pressure chronic ulcer of other part of left foot with necrosis of muscle L97.523 Cellulitis of left foot L03.116
[2020-02-29 14:56] LABS: Vancomycin Trough 20.9 ug/mL (10-15)
[2020-02-29 16:00] VITALS: BP 109/68; PULSE 67; RESP 18; O2SAT 95
--- NOTE | 2020-02-29 16:32 | USCV_ITS ---
Hans Forbes Age: 54 Gender: M : 1965 Exam Date: 02/29/2020 05:46 Ordering Phys: Jolly Johnston MD Technologist: Exam Location: [facility] [place] Indication: GANGRENE LEFT FOOT RIGHT LEFT Brachial 128.00 mmHg Brachial 122.00 mmHg Pressure (mmHg) Waveform Pressure (mmHg) Waveform Above Knee 164.00 Below Knee 160.00 UTILITIES MANAGER 151.00 DPA 149.00 Ankle/Brachial Index 1.18 Pre-Exercise Toe Pressure 133.00 Pre-Exercise Toe/Brachial Index 1.04 FINDINGS Normal resting MALIA on the left side Normal resting TBI on the left side PVR waveforms showing loss of dicrotic notch CONCLUSIONS No significant arterial obstruction, based on the above findings Dr Richie Gonzalez MD FACC (Electronically Signed) Final Date: 29 Feb 2020 09:06 S
--- NOTE | 2020-02-29 16:42 | P.PN_ITS ---
Subjective Subjective: Interval history: foor appears to be improving today significantly. MRI deferred given clinical improvement. patient refusing labs this morning as he is very worried about cost of labs given his insurance and partly because he does not deem these necessary. no acute overnight events no arterial obstruction on doppler no further episodes of syncope Medications: Reviewed: Yes Vitals/I&O/Wt Last Vital Signs Temp 98.6 F 02/29/20 11:38 Pulse 67 02/29/20 16:00 Resp 18 02/29/20 16:00 BP 109/68 02/29/20 16:00 Pulse Ox 95 02/29/20 16:00 02/29/20 02/29/20 02/29/20 06:59 14:59 22:59 Intake Total 300 / 550 770 / 770 Balance 300 / 550 770 / 770 Weight last 48 hrs Weight 111.13 kg Physical Exam Narrative: EXAM NARRATIVE: GEN: Awake, alert and oriented, no acute distress CVS: S1S2 N RS: CTA B/L except crackles over RUL Abd: Soft, nt/nd , bs+ BATTERY CONTAINER FINISHING HAND: no focal neuro deficits Data : 02/28/20 13:28 02/28/20 13:28 Micro: Microbiology 02/28/20 13:28 Blood Culture - Preliminary Blood NEGATIVE TO DATE 02/28/20 13:40 Blood Culture - Preliminary Blood NEGATIVE TO DATE A&P Assessment and plan (1) Diabetic peripheral neuropathy associated with type 2 diabetes mellitus: Status: Acute (2) Gangrene of left foot: Status: Acute (3) Cellulitis of left foot: Status: Acute (4) Hypertension: Status: Acute (5) Dyslipidemia: Status: Acute (6) Colostomy hernia: Status: Acute (7) Syncope: Status: Acute Additional A&P Information #Cellulitis and gangrene of left foot CT of the foot does not appear to show any evidence of osteomyelitis. wound is healing well after I&D yesterday continue iv zosyn and vancomycin stressed the improtance of checking vancomycin levels to patient and monitor kidney function while on vancomycin, amenable to minimal lab draws currently if continues to heal well, will likely transition to po abx upon disharge cx from 02/27 from outpatient remain pending at this time #History of eyj-vnkwclc-ybluxpjmg diabetes mellitus His last A1c is noted to be 9.2 from October of this year. continue insulin sliding scale Per last A1c, patient should ideally be on insulin for a1c>9, however he blames this on reduced physical activity since ankle surgery and wishes only for OHAs and lifestyle modifiation for now #dyslipidemia : TG > 500, HDL 36, 10 year ASCVD risk score at least 20%, discussed statins, declines treatment. He was previously also prescribed by his PCP but he declined stating he did not have a cholesterol problem. Does not wish to take it for primary prevention in spite of understanding risks. #Hypertension: On enalapril 20 mg p.o. twice daily as his home medication. His creatinine appears to be at baseline. continue same. Check CMP #CKD creatinine is at baseline #History of syncope yesetrday, no further episodes, likely vasovagal in nature #History of gout we will continue allopurinol CODE STATUS is full code DVT prophylaxis: SCD, start heparin Attestations Medical Necessity Statement*: need for iv abx for diabetic foot cellulitis Coding Level of Care Code Acute English Professor for [facility] Fwd Diagnoses Diabetic peripheral neuropathy associated with type 2 diabetes mellitus E11.42 Gangrene of left foot I96 Cellulitis of left foot L03.116 Hypertension I10 Dyslipidemia E78.5 Colostomy hernia K94.09 Syncope R55
[2020-02-29 17:07] LABS: Glucose Point of Care 291 mg/dL (70-110)
[2020-02-29 17:48] LABS: Alanine Aminotransferase 23 U/L (0-41); Albumin Level 3.2 g/dL (3.5-5.2); Alkaline Phosphatase 58 IU/L (40-130); Anion Gap 23.2 (5-19); Aspartate Amino Transferase 27 U/L (0-40); Blood Urea Nitrogen 28 mg/dL (6-20); Calcium 9.2 mg/dL (8.5-10.5); Carbon Dioxide 19 mmol/L (22-29); Chloride 97 mmol/L (98-107); Globulin 3.2 g/dL (1.3-4.6); Glomerular Filtration Rate 34.9 mL/min (90-130); Glucose 379 mg/dL (65-115); Osmolality Calculated 293 mOsm/kg (285-295); Potassium 4.2 mmol/L (3.5-5.1); Sodium 135 mmol/L (136-145); Total Bilirubin 0.3 mg/dL (0.15-1.2); Total Protein 6.4 g/dL (6.6-8.7)
[2020-02-29 20:00] VITALS: BP 121/75; PULSE 68; RESP 18; TEMP 36.6; O2SAT 96
[2020-02-29 20:05] LABS: Glucose Point of Care 341 mg/dL (70-110)
[2020-03-01] VITALS: BP 122/77; PULSE 69; RESP 16; TEMP 36.8; O2SAT 94
--- NOTE | 2020-03-01 00:57 | PC.NURSE ---
Due to issues with IV pump, Zosyn finished infusing late. Zosyn will be retimed to follow ordered frequency.
[2020-03-01 03:48] VITALS: BP 134/96; PULSE 71; RESP 16; TEMP 36.9; O2SAT 99
[2020-03-01] MEDS: piperacillin-tazobactam 3.375 GM in sodium chloride 0.9% (plus) 50 ML IV ×2 (06:06→15:07)
[2020-03-01 06:28] LABS: Glucose Point of Care 217 mg/dL (70-110)
--- NOTE | 2020-03-01 06:57 | PM.PN ---
Subjective Subjective: Interval history: Seen bedside this morning. Denies any acute events overnight. Denies any pain to his left foot. Denies any drainage or strikethrough bleeding at the left foot dressing. Denies any other complaints at this time, tolerating regular diet. Patient denies any subjective nausea, vomiting, fever, chills, shortness of breath or chest pain. Vitals/I&O/Wt Last Vital Signs Temp 98.5 F 03/01/20 03:48 Pulse 71 03/01/20 03:48 Resp 16 03/01/20 03:48 BP 134/96 03/01/20 03:48 Pulse Ox 99 03/01/20 03:48 02/29/20 02/29/20 03/01/20 14:59 22:59 06:59 Intake Total 770 / 770 370 / 1140 663.033 / 1803.033 Balance 770 / 770 370 / 1140 663.033 / 1803.033 Weight last 48 hrs Weight 245 lb Data : 02/28/20 13:28 02/29/20 14:24 Micro: Microbiology 02/28/20 13:28 Blood Culture - Preliminary Blood NEGATIVE TO DATE 02/28/20 13:40 Blood Culture - Preliminary Blood NEGATIVE TO DATE A&P Assessment and plan (1) Diabetic peripheral neuropathy associated with type 2 diabetes mellitus: Status: Acute (2) Non-pressure chronic ulcer of other part of left foot with necrosis of muscle: Status: Acute (3) Cellulitis of left foot: Status: Acute Continued improvement with empiric IV antibiotics. Decreased cellulitis, wound appearing more viable has increased granulation tissue. Very minimal fibrotic tissue this was sharply debrided excisional nature with a dermal curette down to bleeding base, hemostasis achieved via manual pressure. Patient tolerated debridement well with minimal discomfort. Continue with dressing of alginate to the plantar left foot wound sub-fourth metatarsal head as well as Betadine wet-to-dry at the fourth webspace. Left ankle-brachial index 1.18, left toe brachial index 1.04 findings consistent with no arterial obstruction. Gram stain from culture taken in podiatry clinic to the left foot wound shows gram-positive cocci in pairs, clusters as well as chains, gram-positive rods and gram-negative rods. Given the patient's improvement would like to work towards discharge planning tomorrow 03/02/2020 will discuss oral antibiotic regimen on discharge with hospitalist. On discharge patient will be limited weightbearing continue with Betadine wet-to-dry daily dressing changes and follow-up in podiatry clinic 03/06/2020 at 3 PM. Attestations Medical Necessity Statement*: Diabetic foot infection left foot Coding Level of Care Code Acute Gas Roller Operator for g Fwd Diagnoses Diabetic peripheral neuropathy associated with type 2 diabetes mellitus E11.42 Non-pressure chronic ulcer of other part of left foot with necrosis of muscle L97.523 Cellulitis of left foot L03.116 Comment Excisional debridement down through subcutaneous tissue CPT code 00857
[2020-03-01 08:00] VITALS: BP 142/87; PULSE 70; RESP 18; TEMP 36.7; O2SAT 96
[2020-03-01] MEDS: aspirin 325 mg Tablet PO (08:36)
[2020-03-01] MEDS: allopurinol 300 mg Tablet PO (08:36)
[2020-03-01] MEDS: pregabalin 150 mg Capsule PO (08:39)
[2020-03-01] MEDS: LYRICA 150 MG 1 EACH PO ×2 (10:48→21:33)
[2020-03-01 11:16] VITALS: BP 125/76; PULSE 73; RESP 18; O2SAT 94
[2020-03-01] MEDS: cetirizine 10 mg Tablet PO (11:24)
[2020-03-01 11:40] LABS: Glucose Point of Care 353 mg/dL (70-110)
[2020-03-01 11:40] LABS: Glucose Point of Care 392 mg/dL (70-110)
--- NOTE | 2020-03-01 13:58 | PM.PN ---
Subjective Subjective: Interval history: Wound appears to be healing well. Patient is declining to take enalpril today. Otherwise feels well today Medications: Reviewed: Yes Vitals/I&O/Wt Last Vital Signs Temp 98.1 F 03/01/20 08:00 Pulse 73 03/01/20 11:16 Resp 18 03/01/20 11:16 BP 125/76 03/01/20 11:16 Pulse Ox 94 03/01/20 11:16 02/29/20 03/01/20 03/01/20 22:59 06:59 14:59 Intake Total 370 / 1140 663.033 / 1803.033 Balance 370 / 1140 663.033 / 1803.033 Physical Exam Narrative: EXAM NARRATIVE: GEN: Awake, alert and oriented, no acute distress CVS: S1S2 N RS: CTA B/L Abd: Soft, nt/nd , bs+ GASTROENTEROLOGY PHYSICIAN: no focal neuro deficits Data : 02/28/20 13:28 02/29/20 14:24 Micro: Microbiology 02/28/20 13:28 Blood Culture - Preliminary Blood NEGATIVE TO DATE 02/28/20 13:40 Blood Culture - Preliminary Blood NEGATIVE TO DATE A&P Assessment and plan (1) Diabetic peripheral neuropathy associated with type 2 diabetes mellitus: Status: Acute (2) Gangrene of left foot: Status: Acute (3) Cellulitis of left foot: Status: Acute (4) Hypertension: Status: Acute (5) Dyslipidemia: Status: Acute (6) Colostomy hernia: Status: Acute (7) Syncope: Status: Acute Additional A&P Information #Cellulitis of left foot CT of the foot does not appear to show any evidence of osteomyelitis. wound is healing well after I&D, healthy granulation tissue now continue iv zosyn and vancomycin. vancomycin trough priro to next dose. CMP to be drawn with trough stressed the improtance of checking vancomycin levels to patient and monitor kidney function while on vancomycin, amenable to minimal lab draws currently if continues to heal well, will likely transition to po abx upon discharge gram stain polymicrobial with GPCs pairs chains and clusters and GNRs. per prelim discussion with lab, + for staph aureus. No current pseudomonas isolates preliminarily final ID pending #History of cju-wiwtspv-ftobbmvli diabetes mellitus His last A1c is noted to be 9.2 from October of this year. continue insulin sliding scale Per last A1c, patient should ideally be on insulin for a1c>9, however he blames this on reduced physical activity since ankle surgery and wishes only for OHAs and lifestyle modifiation for now #dyslipidemia : TG > 500, HDL 36, 10 year ASCVD risk score at least 20%, discussed statins, declines treatment. He was previously also prescribed by his PCP but he declined stating he did not have a cholesterol problem. Does not wish to take it for primary prevention in spite of understanding risks. #Hypertension: On enalapril 20 mg p.o. twice daily as his home medication. His creatinine appears to be at baseline. continue same. Check CMP #CKD creatinine is at baseline, next check today #History of syncope, no further episodes, likely vasovagal in nature #History of gout we will continue allopurinol CODE STATUS is full code DVT prophylaxis: SCD, start heparin Attestations Medical Necessity Statement*: ongoing need for iv antibiotics for diabetic foot celulitis Coding Level of Care Code Acute String Cutter for [facility] Fw Diagnoses Diabetic peripheral neuropathy associated with type 2 diabetes mellitus E11.42 Gangrene of left foot I96 Cellulitis of left foot L03.116 Hypertension I10 Dyslipidemia E78.5 Colostomy hernia K94.09 Syncope R55
[2020-03-01 16:00] VITALS: BP 114/69; PULSE 61; RESP 18; TEMP 36.4; O2SAT 98
[2020-03-01 17:16] LABS: Glucose Point of Care 249 mg/dL (70-110)
[2020-03-01 17:42] LABS: Alanine Aminotransferase 24 U/L (0-41); Albumin Level 3.5 g/dL (3.5-5.2); Alkaline Phosphatase 58 IU/L (40-130); Anion Gap 17.2 (5-19); Aspartate Amino Transferase 23 U/L (0-40); Blood Urea Nitrogen 25 mg/dL (6-20); Calcium 8.8 mg/dL (8.5-10.5); Carbon Dioxide 23 mmol/L (22-29); Chloride 100 mmol/L (98-107); Globulin 3.1 g/dL (1.3-4.6); Glucose 263 mg/dL (65-115); Osmolality Calculated 288 mOsm/kg (285-295); Potassium 4.2 mmol/L (3.5-5.1); Sodium 136 mmol/L (136-145); Total Bilirubin 0.4 mg/dL (0.15-1.2); Total Protein 6.6 g/dL (6.6-8.7); Vancomycin Trough 23.1 ug/mL (10-15)
--- NOTE | 2020-03-01 17:42 | PC.NURSE ---
Pt requested that proposal writer stop antibiotic so that he could eat dinner.
[2020-03-01] MEDS: acetaminophen 325 mg Tablet 650 MG PO (19:47)
[2020-03-01 20:00] VITALS: BP 147/80; PULSE 132; RESP 19; TEMP 36.4; O2SAT 94
[2020-03-01 21:29] LABS: Glucose Point of Care 293 mg/dL (70-110)
[2020-03-02] VITALS: BP 130/79; PULSE 66; RESP 18; TEMP 36.4; O2SAT 94
[2020-03-02] MEDS: piperacillin-tazobactam 3.375 GM in sodium chloride 0.9% (plus) 50 ML IV ×2 (01:05→10:05)
[2020-03-02] MEDS: heparin 5,000 unit/mL INJ 1 mL 5000 UNIT SUBCUT (03:26)
[2020-03-02 04:00] VITALS: BP 107/69; PULSE 64; RESP 16; TEMP 36.6; O2SAT 94
--- NOTE | 2020-03-02 05:26 | PM.PN ---
Subjective Subjective: Interval history: Patient seen bedside this morning, no acute events overnight, denies any left foot pain. Patient denies any subjective nausea, vomiting, fever, chills, shortness of breath or chest pain. Vitals/I&O/Wt Last Vital Signs Temp 97.8 F 03/02/20 04:00 Pulse 64 03/02/20 04:00 Resp 16 03/02/20 04:00 BP 107/69 03/02/20 04:00 Pulse Ox 94 03/02/20 04:00 03/01/20 03/01/20 03/02/20 14:59 22:59 06:59 Intake Total 290 / 290 410 / 700 Balance 290 / 290 410 / 700 Physical Exam Narrative: EXAM NARRATIVE: Patient is alert and oriented ?3 and in no acute distress. The following is a focused bilateral lower extremity exam. VASCULAR: Dorsalis pedis and posterior tibial arteries palpable +2. Capillary refill time less than 3 seconds to the distal hallux bilaterally. Calf is supple and nontender proximally and distally. No edema to the left forefoot. Edema to the right ankle laterally. NEUROLOGICAL: Protective sensation diminished to the lower extremity. DERMATOLOGICAL: Full-thickness wound left foot fourth wound is 100 and granular at this time with epithelialized margins, no malodor, no purulent drainage, previously documented cellulitis significantly resolved, no proximal lymphangitic streaking appreciated. MUSCULOSKELETAL: Mild tenderness to palpation at left foot fourth webspace. There is a reducible hammertoe deformity of the left fifth toe. Ankle joint dorsiflexion in neutral. Muscle strength 5 out of 5 in all 3 cardinal planes. No pain with posterior calf squeeze. Data : 02/28/20 13:28 03/01/20 16:59 A&P Assessment and plan (1) Diabetic peripheral neuropathy associated with type 2 diabetes mellitus: Status: Acute (2) Non-pressure chronic ulcer of other part of left foot with necrosis of muscle: Status: Acute (3) Cellulitis of left foot: Status: Acute Significant improvement with empiric IV antibiotics. Left foot cellulitis resolved, wound has healthy granular base. Patient okay for discharge on oral antibiotics from podiatry standpoint will follow-up via telehealth over the weekend to monitor response on oral regimen. Left ankle-brachial index 1.18, left toe brachial index 1.04 findings consistent with no arterial obstruction. Gram stain from culture taken in podiatry clinic to the left foot wound shows gram-positive cocci in pairs, clusters as well as chains, gram-positive rods and gram-negative rods. Betadine wet-to-dry twice daily dressing changes while patient is at home, he has been educated on how to do this and is comfortable with performing his own dressing changes. He is to utilize his cam boot that he has at home when ambulating is overall to limit his activity and elevate his left foot while at rest. Will monitor response to oral antibiotics over the weekend via telehealth with follow-up in podiatry clinic as scheduled 03/06/2020 at 3 PM. Attestations Medical Necessity Statement*: Diabetic foot infection left foot Coding Level of Care Code Acute Shovel Loader Operator for Jarod Whiting Diagnoses Diabetic peripheral neuropathy associated with type 2 diabetes mellitus E11.42 Non-pressure chronic ulcer of other part of left foot with necrosis of muscle L97.523 Cellulitis of left foot L03.116
[2020-03-02 06:37] LABS: Glucose Point of Care 247 mg/dL (70-110)
[2020-03-02 07:35] VITALS: BP 116/74; PULSE 62; RESP 20; TEMP 37.1; O2SAT 94
[2020-03-02] MEDS: aspirin 325 mg Tablet PO (08:57)
[2020-03-02] MEDS: cetirizine 10 mg Tablet PO (08:58)
[2020-03-02] MEDS: allopurinol 300 mg Tablet PO (08:58)
[2020-03-02] MEDS: LYRICA 150 MG 1 EACH PO (08:59)
[2020-03-02 10:41] LABS: Glucose Point of Care 282 mg/dL (70-110)
[2020-03-02 11:08] VITALS: BP 118/64; PULSE 64; RESP 22; TEMP 36.8; O2SAT 97
[2020-03-02 12:10] VITALS: BP 118/64; PULSE 64; RESP 22; TEMP 36.8; O2SAT 97
[2020-03-02 14:02] VITALS: BP 118/64; PULSE 64; RESP 22; TEMP 36.8; O2SAT 97
--- NOTE | 2020-03-02 14:02 | P.DS_ITS ---
Discharge Providers Date of Admission: 02/28/20 16:36 Date of Discharge: March 02, 2020 Attending Provider at Admission: Jolly Johnston MD Attending Provider at Discharge: Jloly Johnston MD Primary Care Provider: Josi Willis MD Diagnoses at Discharge Discharge Diagnosis (1) Diabetic peripheral neuropathy associated with type 2 diabetes mellitus: Status: Acute (2) Non-pressure chronic ulcer of other part of left foot with necrosis of muscle: Status: Acute (3) Cellulitis of left foot: Status: Acute Reason for Visit Reason for Visit: Reason For Visit: SYNCOPE Hospital Course Discharge Summary: .Hans Forbes is a 54 year old male with PMH CKD, ulecrative colitis s/p colectomy with colostomy 2014, diabetic peripheral vascular disease per chart review, HLD, gout, HTN, DM, lung nodule who follows with dr. yousif for ankle fracture on R leg that was repaired in Sep 2019. He states that at the end of last week he began to experience soreness and noticed redness at the left plantar forefoot. He saw Dr. Yousif in the clinic today and was noted to have a cellulitis of the forefoot, and also a gangrenous appearance in the fourth left webspace. Upon hearing the news of gangrene, and possibility of amputation, he started to feel very lightheaded and appears to have had a vasovagal episode in the clinic. He underwent I&D in the clinic and was admitted to the hospital for iv antibiotics. he received iv zosyn and vancomycin with significant improvement in cellulitis. Cx from office debridement showed mixed john with GPCs in pairs, chains and clusters and GPR and GNR. Lab has been able to thus far isolate MSSA and GNR which are pending identification but appear to be oxidase positive. To kep broad spectrum coverage, he has been transitioned to po antibioticc regimen with Cipro (MSSA is FQ suscetible), doxycycline and Flagyl. He will continue the above for a 14 day course and then subsequent course to be decided based on response. Patient has been instructed to change dressings at home. CT of foot did not show any osteomyelitis. His cr during admission trended up to 2.0, then stable at 1.9. he has been recommended to increase his fluid intake and then recheck CMP in a week with PMD. He is also instructed to keep a blood sugar log to allow adjustment of OHAs. Last a1c significantly elevated at >9. Physical Exam Narrative: EXAM NARRATIVE: GEN: Awake, alert and oriented, no acute distress CVS: S1S2 N RS: CTA B/L Abd: Soft, nt/nd , bs+ FIRE SERVICES PLUMBER: no focal neuro deficits Discharge Data Data Completed and Pending: Completed Studies During Hospitalization Category Date Time Status CT foot LT wo con * [id number] Urgent Cat Scan 02/28/20 13:37 Completed XR chest 1V fabio ble [id number] Stat Exams 02/28/20 13:04 Completed CV segpressure LE [place] sgl [id number] Rout ine Ultrasound 02/29/20 16:32 Completed Pending at discharge Category Date Time Status Blood Culture Sta t Lab 02/28/20 13:28 Results Labs from last 24 hours 03/02/20 03/02/20 03/01/20 10:32 06:31 21:21 Sodium Potassium Chloride Carbon Dioxide Anion Gap BUN Creatinine GFR Calculation Glucose POC Glucose 282 247 293 Calculated Osmolal ity Calcium Total Bilirubin AST ALT Alkaline Phosphata se Total Protein Albumin Globulin Vancomycin Trough 03/01/20 03/01/20 17:13 16:59 Sodium 136 Potassium 4.2 Chloride 100 Carbon Dioxide 23 Anion Gap 17.2 BUN 25 H Creatinine 1.9 H GFR Calculation 37.0 L Glucose 263 H POC Glucose 249 Calculated Osmolal ity 288 Calcium 8.8 Total Bilirubin 0.4 AST 23 ALT 24 Alkaline Phosphata se 58 Total Protein 6.6 Albumin 3.5 Globulin 3.1 Vancomycin Trough 23.1 H Vitals: Last Vital Signs Temp 98.3 F 03/02/20 12:10 Pulse 64 03/02/20 12:10 Resp 22 H 03/02/20 12:10 BP 118/64 03/02/20 12:10 Pulse Ox 97 03/02/20 12:10 Discharge Plan Discharge Patient Disposition: Home, Self-Care Condition: Stable Prescriptions: New Flagyl 500 mg tablet 500 mg PO BID 15 Days Qty: 30 RF: 0 Continued calcium carbonate [Calcium 600] 600 mg calcium (1,500 mg) tablet 600 mg PO QPM RF: 0 (DME) cam walker Qty: 1 RF: 0 (DME) PTT SUPINATOR Qty: 1 RF: 0 enalapril maleate 20 mg tablet 20 mg PO BID Qty: 180 RF: 1 Janumet 50-1,000 mg tablet 1 tab PO BID Qty: 60 RF: 2 pregabalin [Lyrica] 150 mg capsule 150 mg PO TID Qty: 90 RF: 2 doxycycline hyclate 100 mg capsule 100 mg PO BID 14 Days Qty: 28 RF: 0 ciprofloxacin HCl 500 mg tablet 500 mg PO Q12H 14 Days Qty: 28 RF: 0 aspirin 325 mg Tablet 325 mg PO DAILY RF: 0 Cinnamon 500 mg Capsule 1,000 mg PO BID RF: 0 potassium gluconate 595 mg (99 mg) Tablet 595 mg PO DAILY RF: 0 Adult Multivitamin Gummies 200 mcg Tablet,Chewable 200 mcg PO BID RF: 0 magnesium oxide 400 mg magnesium Capsule See Rx Instructions .ROUTE .COMPLEX RF: 0 Fish Oil 1 cap PO BID RF: 0 Life Renew 2 cap PO BID RF: 0 Zyrtec 10 mg PO DAILY RF: 0 glimepiride 4 mg tablet 4 mg PO BID RF: 0 allopurinol 300 mg tablet 300 mg PO DAILY RF: 0 Discharge Orders: Discharge Order (Routine); Ordered 03/02/20 Ordered By: Jolly Johnston Other Ambulatory Orders: Comprehensive Metabolic Panel (Routine) Timeframe: 1 Week Location: Determined by Patient Ordered By: Jolly Johnston Referrals: Josi Willis MD [Primary Care Provider] - (PLEASE CALL FOR APPOINTMENT ) Discharge Diet: Usual diet and Diabetic Discharge Activity: Limit activity as instructed Patient Instructions: Metronidazole (By mouth), Diabetic Foot Ulcers (DC) Discharge Date/Time: 03/02/20 13:50 Discharge Attestations Time Spent in Discharge Care*: greater than 30 min Specific Discharge Activities: Specific discharge activities: educating patient and evaluating patient/reviewing data Quality Metrics Clinical Quality Measures During this hospital stay, did patient experience: None Coding Level of Care Code Acute Assistant Store Manager Trainee for g Fwd Diagnoses Diabetic peripheral neuropathy associated with type 2 diabetes mellitus E11.42 Non-pressure chronic ulcer of other part of left foot with necrosis of muscle L97.523 Cellulitis of left foot L03.116
== END 2020-03-02 13:50 | disposition home or self-care (01) | DRG 300 ==
LOC: ER 17:59 → MEDSURG 19:09
PROVIDERS: Nurse Practitioner Family; Admitting Provider Student in an Organized Health Care Education/Training Program; Emergency Provider Family Medicine; PCP Family Medicine; Visit Provider Student in an Organized Health Care Education/Training Program
DX: E11.52 Type 2 diabetes mellitus with diabetic peripheral angiopathy with gangrene (principal); L03.116 Cellulitis of left lower limb; I96 Gangrene, not elsewhere classified; L97.523 Non-pressure chronic ulcer of other part of left foot with necrosis of muscle; Z79.82 Long term (current) use of aspirin; E11.42 Type 2 diabetes mellitus with diabetic polyneuropathy; E11.22 Type 2 diabetes mellitus with diabetic chronic kidney disease; I12.9 Hypertensive chronic kidney disease with stage 1 through stage 4 chronic kidney disease, or unspecified chronic kidney disease; Z93.3 Colostomy status; E11.51 Type 2 diabetes mellitus with diabetic peripheral angiopathy without gangrene; E78.5 Hyperlipidemia, unspecified; N18.2 Chronic kidney disease, stage 2 (mild); G47.10 Hypersomnia, unspecified
CPT/HCPCS: 12345; 36415; 36416; 71045; 73700; 80053; 80202; 81003; 82962; 83605; 84484; 85025; 87040; 87070; 87075; 87077; 87186; 87205; 93005; 93922; 96372; 99283; J1644; J1815; J2543; J3370; J7050

== ENCOUNTER → 2020-03-07 14:22 | Outpatient (BNVA) | payer BC, SELFPAY | PROVIDERS: PCP Family Medicine; Visit Provider Family Medicine | DX: E11.42 Type 2 diabetes mellitus with diabetic polyneuropathy (principal); R39.89 Other symptoms and signs involving the genitourinary system | CPT/HCPCS: 80053; 83036 ==

== ENCOUNTER → 2020-04-20 10:28 | Outpatient (BNVA) | payer BC, SELFPAY | PROVIDERS: PCP Family Medicine; Visit Provider Family Medicine | DX: E11.42 Type 2 diabetes mellitus with diabetic polyneuropathy (principal) | CPT/HCPCS: 80053; 83036; 85025 ==

== ENCOUNTER → 2020-08-23 11:31 | Outpatient (BNVA) | payer BC, SELFPAY | PROVIDERS: PCP Family Medicine; Visit Provider Family Medicine | DX: E11.42 Type 2 diabetes mellitus with diabetic polyneuropathy (principal); Z79.899 Other long term (current) drug therapy | CPT/HCPCS: 80053; 80061; 82043; 83036; 85025 ==

== ENCOUNTER → 2021-03-07 13:10 | Outpatient (BNVA) | payer BC, SELFPAY | PROVIDERS: PCP Family Medicine; Visit Provider Family Medicine | DX: E11.42 Type 2 diabetes mellitus with diabetic polyneuropathy (principal); I10 Essential (primary) hypertension; M1A.9XX0 Chronic gout, unspecified, without tophus (tophi) | CPT/HCPCS: 80053; 80061; 83036; 84550; 85025 ==

== ENCOUNTER → 2021-03-11 15:52 | Outpatient (BNVA) | payer BC, SELFPAY | PROVIDERS: PCP Family Medicine; Visit Provider Podiatrist Foot & Ankle Surgery | DX: M25.571 Pain in right ankle and joints of right foot (principal); L84 Corns and callosities; L60.3 Nail dystrophy; E11.42 Type 2 diabetes mellitus with diabetic polyneuropathy; M19.171 Post-traumatic osteoarthritis, right ankle and foot; L85.1 Acquired keratosis [keratoderma] palmaris et plantaris; G89.29 Other chronic pain | CPT/HCPCS: 73610 ==

== ENCOUNTER 2021-03-19 14:25 | Outpatient (CLI) | payer BC, SELFPAY ==
--- NOTE | 2021-03-19 14:29 | MR_ITS ---
WS: [id number] MRI RIGHT ANKLE without CONTRAST. COMPARISON: 03/11/2021 Multiplanar, multisequence imaging is performed without contrast. Prior RIGHT ankle fracture. Plate and screw fixation distal fibula. Distal fibular fracture appears h ealed although there is artifact from the hardware extending to the ankle. Small osteochondral lesion in the posterior mid tibial plafond, 3 mm. There is an additional osteochondral lesion over the faviola r dome extending over a length of 13 x 8 mm. This is along the medial talar dome. No loose bodies are identified or significant joint effusion. The Achilles tendon and peroneal brevis and longus tendons are normal. The flexion and extension tend ons are normal signal and caliber. No displacement. Subtalar joint is normal with no increased signal . MR/MR ankle RT wo con* [id number] IMPRESSION: 1. Focal osteochondral lesion along the medial talar dome measures 13 x 8 mm. 2. Additional small osteochondral defect in the posterior tibial plafond measu res 3 mm. 3. Prior plate and screw fixation remote fibular fracture.
== END 2021-03-19 14:26 | disposition home or self-care (01) ==
LOC: RADSHAW 14:28
PROVIDERS: PCP Family Medicine; Visit Provider Podiatrist Foot & Ankle Surgery
DX: M25.571 Pain in right ankle and joints of right foot (principal); M19.171 Post-traumatic osteoarthritis, right ankle and foot
CPT/HCPCS: 73721

== ENCOUNTER → 2021-08-13 10:54 | Outpatient (BNVA) | payer BC, SELFPAY | PROVIDERS: PCP Family Medicine; Visit Provider Family Medicine | DX: E11.42 Type 2 diabetes mellitus with diabetic polyneuropathy (principal); I10 Essential (primary) hypertension; M1A.9XX0 Chronic gout, unspecified, without tophus (tophi) | CPT/HCPCS: 80053; 80061; 83036; 84550; 85025 ==

== ENCOUNTER → 2021-08-26 11:20 | Outpatient (BNVA) | payer BC, SELFPAY | PROVIDERS: PCP Family Medicine; Visit Provider Family Medicine | DX: Z20.822 Contact with and (suspected) exposure to COVID-19 (principal); Z79.4 Long term (current) use of insulin; I10 Essential (primary) hypertension; E78.5 Hyperlipidemia, unspecified; E11.42 Type 2 diabetes mellitus with diabetic polyneuropathy; Z01.818 Encounter for other preprocedural examination | CPT/HCPCS: 87635 ==

== ENCOUNTER 2021-08-30 07:15 | Day surgery (SDC) | payer OTHER, BC, SELFPAY ==
[2021-08-29 09:38] VITALS: BMI 32.5
[2021-08-30] VITALS (7 sets, daily range): BP systolic 133–164; BP diastolic 78–89; PULSE 67–76; RESP 16–18; TEMP 36.1–36.6; O2SAT 94–97
--- NOTE | 2021-08-30 | SCC_ITS ---
Procedure Done: Ankle Arthroscopy with osteochondral defect repair 93791 42 seconds of fluoroscopic guidance, for a cumulative dose of 1.263 mGy, was provided to Dr. Yousif by the radiology department. C-arm images of the right ankle were saved for the patient's permanent record. [facility]
[2021-08-30 08:02] LABS: Glucose Point of Care 140 mg/dL (70-110)
[2021-08-30] MEDS: sodium chloride 0.9% 1,000 ML 30 ML IV (08:05)
--- NOTE | 2021-08-30 08:34 | P.ANESASSM_ITS ---
Pre-Anesthetic Assessment Pre-Anesthetic Assessment: Height/Weight: Height 1.88 m Weight 114.759 kg Temp Pulse Resp BP Pulse Ox 97 F L 73 18 145/89 97 08/30/21 07:55 08/30/21 07:55 08/30/21 07:55 08/30/21 07:55 08/30/21 07:55 Preop Diagnosis: Osteochondral defect right ankle Proposed Procedure: Operation Date: 08/30/21 08:40 Proposed Procedures p Ankle Arthroscopy with osteochondral defect repair 40393 M95.8 M25.571(Right) - Esteban Yousif DPM Familial anesthetic complications: none Was Beta Valery taken within 24 hours: N/A Was Clonidine taken within 24 hours: N/A Last intake: Intake Last Liquid Date 08/29/21 Last Liquid Time 23:00 Last Solid Date 08/29/21 Last Solid Time 23:00 Social: Social History: No alcohol and No tobacco Exam: Pre-Anes Outpt Exam: alert, oriented x 3, clear to auscultation bilaterally and regular rate & rhythm Airway: Cervical ROM: WNL MP: 3 Dentition: Partials Additional comments: hood, large tongue CV/HEM: CV/HEM: HTN Metabolic: Metabolic: DM and Hyperlipidemia Anesthetic Plan: ASA status: 3 Anesthesia: General and Regional (specify below) Risk of > 500 ml blood loss (7ml/kg in children): No Meds/Allergies Current Medications: Current Medications Generic Name Dose Route Start Last Admin Trade Name Freq PRN Reason Stop Dose Admin Sodium Chloride 1,000 mls @ 30 ml s/hr 08/30/21 07:45 08/30/21 08:05 Sodium Chloride 0.9% IV 08/31/21 07:44 30 mls/hr .Q24H DONNY Administration PFSH Anesthesia PFSH: Medical History CKD (chronic kidney disease) stage 2, GFR 60-89 ml/min Colostomy hernia DDD (degenerative disc disease) Diabetic peripheral vascular disease Dyslipidemia Entrapment of right ulnar nerve Gout Hypersomnia Hypertension Lung nodule Vitiligo Surgical History H/O colectomy History of ankle surgery History of hip surgery Family History Other Chronic kidney disease (CKD) Diabetes Hypertension Denies family history of Cancer Stroke Social History Smoking and tobacco status: never smoked Second hand smoke exposure: No Smoking risk assessment/counseling performed?: No Alcohol intake: current Alcohol intake frequency: holidays/special occasions only Desire information about alcohol rehabilitation?: No Counseling given: No Desire information about substance/drug rehabilitation?: No Counseling given: No Adopted: No Caregiver/support person: No Lives independently: Yes Household members: spouse Housing: House Marital status: Current occupational status: employed 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
--- NOTE | 2021-08-30 08:36 | ANES.PROC ---
Anesthesia Procedures Procedure/Date: 08/30/21 Nerve Block ^: Nerve Block 1: Main Anesthesia: general anesthesia Time Out Performed: Yes Consent: requested by attending/covering physician, from patient, risks and benefits reviewed and patient agrees to proceed Nerve block location: popliteal (R) Anesthesia monitors applied: pulse oximetry, EKG, BP cuff and oxygen Anesthetic Used: ropivicaine 0.5% and with decadron (4) Amount of anesthesia used (mL): 30 Ultrasound used to: recognize landmarks Nerve Stimulator Used?: No Interscalene/Femoral BLK: 4 stimuplex 21 g needle used for position and inplane approach and visualize local anesthetic spread Injection: neg aspiration of heme Patient Tolerated Procedure: well Complications: none
--- NOTE | 2021-08-30 08:39 | P.HPUD_ITS ---
Surgery/Procedure H&P Update DATE OF PROCEDURE: August 30, 2021 DATE H&P PERFORMED: 08/20/21 H&P UPDATE INFORMATION: I have reviewed H&P completed within last 30 days, I have examined patient prior to procedure, No changes to prior documentation and H&P is in [facility] EMR on date indicated PREOP DIAGNOSIS: Osteochondral defect right ankle PLANNED PROCEDURE: Operation Date: 08/30/21 08:40 Proposed Procedures p Ankle Arthroscopy with osteochondral defect repair 83992 M95.8 M25.571(Right) - Esteban Yousif DPM
--- NOTE | 2021-08-30 09:42 | SUR.OPER ---
[address] [facility] [id number] exp lot [id number] used by Dr Yousif in the [facility] solution
--- NOTE | 2021-08-30 10:25 | P.OP_ITS ---
Operative Report Date of procedure: August 30, 2021 Pre-op Diagnosis: Osteochondral defect right ankle Post-op diagnosis: same Procedure Done: Ankle Arthroscopy with osteochondral defect repair 45668 Implants: 4-0 nylon Pathology: none sent Surgeon: Esteban Yousif DPM Plastics Seasoner Operator: Sayra Anesthesia: General Estimated blood loss: 5 Tourniquet time: 56 IV fluids: 0 Urine output: 0 Complications: None Findings: Synovitis and osteochondral defect right ankle Condition: stable Disposition: PACU Brief History: Patient had a right ankle fracture underwent ORIF has had residual pain located at the medial gutter, MRI significant for bone marrow edema lesion at the medial gutter with concern for osteochondral defect. Recommended ankle arthroscopy with debridement and repair of osteochondral defect patient is agreeable. Risks include pain, bleeding, numbness, infection, neuritis, fistula, failure to alleviate pain, need for further surgical revision., Septic joint, decreased range of motion. Procedure: Under mild sedation the patient was brought to the operating room and placed on the operating table in supine position. Timeout was performed. Anesthesia was then administered by the anesthesia service, right popliteal block performed per anesthesia preoperatively. Well-padded pneumatic tourniquet applied to the right high calf. Right lower extremity was then scrubbed, prepped and draped utilizing normal aseptic technique. Attention was then directed to the right lateral calcaneus 1 cm inferior and posterior to the lateral malleolus where bone marrow aspirate was harvested total of 60 cc percutaneous site was flushed with saline and closed with 4-0 nylon. Bone marrow aspirate was passed to the back table and prepared for PRP and Ortho biologic to be utilized later in the procedure. Right lower extremity was wrapped with an Esmarch bandage and a tourniquet inflated to 250 mmHg. 12 cc of 1% lidocaine with epinephrine utilized to insufflate the ankle joint. Anterior ankle portals were established medial to the tibialis anterior lateral to the peroneal tarsus and normal technique with Sridhar and spread. 1.9 mm Amrita scope utilized for arthroscopy combined with 3.5 mm shaver. Ankle joint was inspected and debrided of all hemorrhagic synovitis. Was able to visualize the talar dome with attention at the medial shoulder, cartilage surface was intact this was spongy in the area of concern for osteochondral defect with intact cartilage determination was made to perform excision of devitalized bone with injection of PRP and bone marrow aspirate. After performing standard ankle in spection sitting vital structures intact attention was directed to the lateral talus utilizing a cannula advancing from inferior lateral to superior medial to the area of defect which was then drilled and filled stimulating osseous repair. Incision sites were flushed and closed with 4-0 nylon. Incision sites were dressed with Adaptic, sterile 4 x 4, Kerlix, Naveen wrap and cam boot was applied. Tourniquet was deflated and a prompt hyperemic response was noted to the distal digits of the right foot. Patient tolerated the procedure well and was transferred to the PACU with vital signs stable vascular status intact. Following a period of postoperative monitoring he will be discharged home is to remain nonweightbearing for the next 3 weeks.
--- NOTE | 2021-08-30 10:31 | XR_ITS ---
WS: [id number] Right ankle, 3 views, 08/30/2021 Clinical Data: post op Comparison: Right ankle, 03/11/2021. Findings: No new fractures or dislocations are seen. The ankle mortise is normal. The talus and calcaneus are u nremarkable. There is soft tissue swelling over the medial talus. Internal fixation of a distal right fibular fracture with plate and screws remains the same. XR/XR ankle RT min 3V* [id number] Impression: Negative for new fracture or dislocation.
--- NOTE | 2021-08-30 17:21 | ANE.PACU2 ---
Inpatient post-anesthesia follow up: Airway intact: Yes Vital signs: Temperature 97.8 F Pulse Rate 67 Respiratory Rate 18 Blood Pressure 143/79 Pulse Oximetry 97 Oxygen Delivery Me thod Room Air Oxygen Flow Rate Fraction of Inspir ed Oxygen Hydration adequate: Yes Nausea and vomiting: No Pain level: 2 Mental status: Baseline
== END 2021-08-30 11:31 | disposition home or self-care (01) ==
PROVIDERS: PCP Family Medicine; Visit Provider Podiatrist Foot & Ankle Surgery
PROC: (CPT 29892; principal; 2021-08-30 08:40)
DX: M21.961 Unspecified acquired deformity of right lower leg (principal); M65.871 Other synovitis and tenosynovitis, right ankle and foot; E78.5 Hyperlipidemia, unspecified; E11.22 Type 2 diabetes mellitus with diabetic chronic kidney disease; I12.9 Hypertensive chronic kidney disease with stage 1 through stage 4 chronic kidney disease, or unspecified chronic kidney disease; N18.2 Chronic kidney disease, stage 2 (mild); E11.51 Type 2 diabetes mellitus with diabetic peripheral angiopathy without gangrene
CPT/HCPCS: 29892; 36416; 64450; 73610; 76000; 76942; 82962; 96365; C1762; J0690; J1100; J2405; J2704; J2710; J2795; J3010; J3490; J7030

== ENCOUNTER 2021-11-21 09:49 | Outpatient (RCR) | payer OTHER, SELFPAY | END 2021-11-25 23:59 | disposition home or self-care (01) | LOC: SPT 09:49 | PROVIDERS: PCP Family Medicine; Visit Provider Podiatrist Foot & Ankle Surgery | DX: M95.8 Other specified acquired deformities of musculoskeletal system (principal); M25.571 Pain in right ankle and joints of right foot; G89.29 Other chronic pain; E11.9 Type 2 diabetes mellitus without complications; Z79.4 Long term (current) use of insulin; M20.21 Hallux rigidus, right foot; M20.22 Hallux rigidus, left foot | CPT/HCPCS: 97161 ==

== ENCOUNTER → 2021-12-09 11:20 | Outpatient (BNVA) | payer OTHER, SELFPAY | PROVIDERS: PCP Family Medicine; Visit Provider Family Medicine | DX: E11.9 Type 2 diabetes mellitus without complications (principal) | CPT/HCPCS: 83036 ==

== ENCOUNTER 2021-12-24 06:00 | Outpatient (RCR) | payer OTHER, SELFPAY | END 2022-01-02 10:16 | disposition home or self-care (01) | LOC: SPT 06:00 | PROVIDERS: PCP Family Medicine; Visit Provider Podiatrist Foot & Ankle Surgery | DX: M95.8 Other specified acquired deformities of musculoskeletal system (principal); M25.571 Pain in right ankle and joints of right foot; G89.29 Other chronic pain; E11.9 Type 2 diabetes mellitus without complications; Z79.4 Long term (current) use of insulin; M20.21 Hallux rigidus, right foot; M20.22 Hallux rigidus, left foot | CPT/HCPCS: 97760; L3030 ==

== ENCOUNTER → 2022-02-24 11:41 | Outpatient (BNVA) | payer OTHER, SELFPAY | PROVIDERS: PCP Family Medicine; Visit Provider Family Medicine | DX: I10 Essential (primary) hypertension (principal); E11.42 Type 2 diabetes mellitus with diabetic polyneuropathy; E78.5 Hyperlipidemia, unspecified; K94.09 Other complications of colostomy; M1A.9XX0 Chronic gout, unspecified, without tophus (tophi) | CPT/HCPCS: 80053; 80061; 83036; 85025 ==

== ENCOUNTER → 2022-03-05 16:16 | Outpatient (BNVA) | payer OTHER, SELFPAY | PROVIDERS: PCP Family Medicine; Visit Provider Podiatrist Foot & Ankle Surgery | DX: M25.571 Pain in right ankle and joints of right foot (principal); G89.29 Other chronic pain | CPT/HCPCS: 73610 ==

== ENCOUNTER → 2022-09-29 10:08 | Outpatient (BNVA) | payer OTHER, SELFPAY | PROVIDERS: PCP Family Medicine; Visit Provider Family Medicine | DX: E11.42 Type 2 diabetes mellitus with diabetic polyneuropathy (principal); I10 Essential (primary) hypertension; M10.9 Gout, unspecified; Z12.5 Encounter for screening for malignant neoplasm of prostate | CPT/HCPCS: 80053; 80061; 83036; 84550; 85025; G0103 ==

== ENCOUNTER → 2022-11-06 12:19 | Outpatient (BNVA) | payer OTHER, SELFPAY | PROVIDERS: PCP Family Medicine; Visit Provider Family Medicine | DX: E11.42 Type 2 diabetes mellitus with diabetic polyneuropathy (principal) | CPT/HCPCS: 83036 ==

== ENCOUNTER → 2023-03-16 11:18 | Outpatient (BNVA) | payer OTHER, SELFPAY | PROVIDERS: PCP Family Medicine; Visit Provider Family Medicine | DX: E11.42 Type 2 diabetes mellitus with diabetic polyneuropathy (principal); I10 Essential (primary) hypertension; E78.5 Hyperlipidemia, unspecified | CPT/HCPCS: 80053; 80061; 82043; 83036; 85025 ==

== ENCOUNTER → 2023-09-25 11:15 | Outpatient (BNVA) | payer OTHER, SELFPAY | PROVIDERS: PCP Family Medicine; Visit Provider Family Medicine | DX: E11.42 Type 2 diabetes mellitus with diabetic polyneuropathy; N18.2 Chronic kidney disease, stage 2 (mild); I10 Essential (primary) hypertension; Z12.5 Encounter for screening for malignant neoplasm of prostate; M10.9 Gout, unspecified; E78.5 Hyperlipidemia, unspecified | CPT/HCPCS: 80053; 80061; 83036; 84550; 85025; G0103 ==

== ENCOUNTER → 2023-10-21 14:45 | Outpatient (BNVA) | payer OTHER, SELFPAY | PROVIDERS: PCP Family Medicine; Visit Provider Nurse Practitioner Family | DX: N52.9 Male erectile dysfunction, unspecified (principal) | CPT/HCPCS: 84403 ==

== ENCOUNTER → 2023-12-07 15:00 | Outpatient (BNVA) | payer OTHER, SELFPAY | PROVIDERS: PCP Family Medicine; Visit Provider Family Medicine | DX: R53.83 Other fatigue (principal); L03.119 Cellulitis of unspecified part of limb; L02.419 Cutaneous abscess of limb, unspecified; L03.115 Cellulitis of right lower limb | CPT/HCPCS: 84402; 84403 ==

== ENCOUNTER → 2023-12-15 11:16 | Outpatient (BNVA) | payer OTHER, SELFPAY | PROVIDERS: PCP Family Medicine; Visit Provider Family Medicine | DX: R79.89 Other specified abnormal findings of blood chemistry (principal); W57.XXXA Bitten or stung by nonvenomous insect and other nonvenomous arthropods, initial encounter | CPT/HCPCS: 86003; 86008 ==

== ENCOUNTER → 2024-03-02 12:04 | Outpatient (BNVA) | payer OTHER, SELFPAY | PROVIDERS: PCP Family Medicine; Visit Provider Family Medicine | DX: E11.42 Type 2 diabetes mellitus with diabetic polyneuropathy (principal); E11.9 Type 2 diabetes mellitus without complications; Z79.4 Long term (current) use of insulin | CPT/HCPCS: 80053; 80061; 82306; 83036; 83721; 84403; 85025 ==

== ENCOUNTER → 2024-03-15 08:11 | Outpatient (BNVA) | payer OTHER, SELFPAY | PROVIDERS: PCP Family Medicine; Visit Provider Internal Medicine | DX: R79.89 Other specified abnormal findings of blood chemistry (principal); N52.9 Male erectile dysfunction, unspecified; E11.42 Type 2 diabetes mellitus with diabetic polyneuropathy; Z79.899 Other long term (current) drug therapy | CPT/HCPCS: 80061; 83721; 84146; 84403; G0103 ==

== ENCOUNTER 2024-09-09 07:53 | Outpatient (CLI) | payer OTHER, SELFPAY ==
[2024-09-09 08:16] LABS: Basophils # 0.1 10^3/uL (0.0-0.1); Eosinophils # 0.1 10^3/uL (0.0-0.8); Eosinophils % 1.3 %; Hematocrit 44.1 % (37-53); Lymphocytes # 1.5 10^3/uL (0.8-4.8); Lymphocytes % 21.9 %; Mean Corpuscular HGB Conc 34.2 g/dL (30-55); Mean Corpuscular Hemoglobin 31.7 pg (27-33); Mean Corpuscular Volume 92.6 fl (82-101); Mean Platelet Volume 10.7 fL (7.4-10.4); Monocytes # 0.6 10^3/uL (0.2-0.9); Monocytes % 9.2 %; Neutrophils # 4.58 10^3/uL (1.8-7.7); Neutrophils % 66.2 %; Nucleated Red Blood Cells % 0 %; Platelet Count 176 10^3/cmm (157-399); Red Blood Count 4.76 10^6/uL (3.85-5.65); Red Cell Distribution Width 13.3 % (12.1-15.1); White Blood Count 6.93 10^3/uL (3.29-11.43)
[2024-09-09 08:38] LABS: Estmated Average Glucose 186; Hemoglobin A1C 8.1 % (4.0-6.0)
[2024-09-09 08:43] LABS: Creatinine Urine, Random 132 mg/dL (39-259); Microalbum Creatinine Ratio Ur 15 mg/dL (0-20); Microalbumin Random Urine 2 ug/dL (0-20)
[2024-09-09 08:46] LABS: Albumin Level 4.4 g/dL (3.5-5.2); Alkaline Phosphatase 91 U/L (40-130); Blood Urea Nitrogen 32 mg/dL (8-23); Calcium 9.3 mg/dL (8.5-10.5); Carbon Dioxide 24 mmol/L (22-29); Chloride 99 mmol/L (98-107); Chol HDL Ratio 9.07 mg/dL (1.0-5.00); Cholesterol 263 mg/dL (0-200); Globulin 3.2 g/dL (1.3-4.6); Glomerular Filtration Rate 51.7 mL/min (90-130); Glucose 231 mg/dL (65-115); HDL Cholesterol 29 mg/dL (60-100); Osmolality Calculated 294 mOsm/kg (285-295); Prostate Specific Antigen Scr 0.56 ng/mL (0-4); Sodium 135 mmol/L (136-145); Testosterone Total 252.8 ng/dL (193-740); Total Bilirubin 0.3 mg/dL (0.15-1.2); Total Protein 7.6 g/dL (6.6-8.7)
[2024-09-09 08:59] LABS: Alanine Aminotransferase < 5 U/L (0-41)
[2024-09-09 09:04] LABS: Triglycerides 1209 mg/dL (0-150)
[2024-09-09 09:05] LABS: Anion Gap 16.8 (5-19); Potassium 4.8 mmol/L (3.5-5.1)
[2024-09-09 09:06] LABS: Aspartate Amino Transferase 25 U/L (0-40)
[2024-09-09 09:24] LABS: LDL Cholesterol Direct 95 mg/dL (0-100)
== END 2024-09-09 07:54 | disposition home or self-care (01) ==
PROVIDERS: PCP Nurse Practitioner Family; Visit Provider Internal Medicine
DX: R79.89 Other specified abnormal findings of blood chemistry (principal); N52.9 Male erectile dysfunction, unspecified; E11.9 Type 2 diabetes mellitus without complications; Z79.4 Long term (current) use of insulin; E11.42 Type 2 diabetes mellitus with diabetic polyneuropathy; E78.5 Hyperlipidemia, unspecified
CPT/HCPCS: 80053; 80061; 82044; 83036; 83721; 84403; 85025; G0103

== ENCOUNTER 2024-11-01 07:23 | Outpatient (CLI) | payer OTHER, SELFPAY ==
[2024-11-01 07:56] LABS: Basophils # 0.1 10^3/uL (0.0-0.1); Basophils % 0.9 %; Eosinophils # 0.2 10^3/uL (0.0-0.8); Eosinophils % 3.4 %; Hematocrit 42.9 % (37-53); Lymphocytes # 1.6 10^3/uL (0.8-4.8); Mean Corpuscular HGB Conc 33.3 g/dL (30-55); Mean Corpuscular Hemoglobin 30.8 pg (27-33); Mean Corpuscular Volume 92.3 fl (82-101); Mean Platelet Volume 10.9 fL (7.4-10.4); Monocytes # 0.8 10^3/uL (0.2-0.9); Monocytes % 12.3 %; Neutrophils % 57.9 %; Nucleated Red Blood Cells % 0 %; Platelet Count 181 10^3/cmm (157-399); Red Blood Count 4.65 10^6/uL (3.85-5.65)
[2024-11-01 08:09] LABS: Estmated Average Glucose 203; Hemoglobin A1C 8.7 % (4.0-6.0)
[2024-11-01 08:23] LABS: Alanine Aminotransferase 20 U/L (0-41); Albumin Level 4.4 g/dL (3.5-5.2); Alkaline Phosphatase 56 U/L (40-130); Blood Urea Nitrogen 40 mg/dL (8-23); Calcium 10.9 mg/dL (8.5-10.5); Carbon Dioxide 24 mmol/L (22-29); Chloride 101 mmol/L (98-107); Chol HDL Ratio 6.88 mg/dL (1.0-5.00); Cholesterol 220 mg/dL (0-200); Glomerular Filtration Rate 32.4 mL/min (90-130); Glucose 146 mg/dL (65-115); HDL Cholesterol 32 mg/dL (60-100); Osmolality Calculated 300 mOsm/kg (285-295); Sodium 139 mmol/L (136-145); Testosterone Total 340.7 ng/dL (193-740); Total Bilirubin 0.4 mg/dL (0.15-1.2); Total Protein 7.4 g/dL (6.6-8.7); Triglycerides 636 mg/dL (0-150)
[2024-11-01 08:26] LABS: Anion Gap 19.2 (5-19); Aspartate Amino Transferase 27 U/L (0-40); Potassium 5.2 mmol/L (3.5-5.1)
[2024-11-01 08:41] LABS: LDL Cholesterol Direct 89 mg/dL (0-100)
[2024-11-01 09:01] LABS: Creatinine Urine, Random 95 mg/dL (39-259); Microalbum Creatinine Ratio Ur 11 mg/dL (0-20); Microalbumin Random Urine 1 ug/dL (0-20)
== END 2024-11-01 07:24 | disposition home or self-care (01) ==
PROVIDERS: Internal Medicine; PCP Nurse Practitioner Family; Visit Provider Nurse Practitioner Family
DX: R79.89 Other specified abnormal findings of blood chemistry (principal); E11.9 Type 2 diabetes mellitus without complications; Z79.4 Long term (current) use of insulin
CPT/HCPCS: 36415; 80053; 80061; 82044; 83036; 83721; 84403; 85025

== ENCOUNTER 2024-11-07 07:14 | Outpatient (CLI) | payer OTHER, SELFPAY ==
[2024-11-07 08:10] LABS: Alanine Aminotransferase 21 U/L (0-41); Albumin Level 4.7 g/dL (3.5-5.2); Alkaline Phosphatase 55 U/L (40-130); Anion Gap 16.8 (5-19); Aspartate Amino Transferase 21 U/L (0-40); Blood Urea Nitrogen 41 mg/dL (8-23); Calcium 11.3 mg/dL (8.5-10.5); Carbon Dioxide 25 mmol/L (22-29); Chloride 100 mmol/L (98-107); Globulin 3.2 g/dL (1.3-4.6); Glomerular Filtration Rate 27.8 mL/min (90-130); Glucose 137 mg/dL (65-115); Osmolality Calculated 296 mOsm/kg (285-295); Potassium 4.8 mmol/L (3.5-5.1); Sodium 137 mmol/L (136-145); Total Bilirubin 0.4 mg/dL (0.15-1.2); Total Protein 7.9 g/dL (6.6-8.7)
== END 2024-11-07 07:15 | disposition home or self-care (01) ==
PROVIDERS: Internal Medicine; PCP Nurse Practitioner Family; Visit Provider Nurse Practitioner Family
DX: N17.9 Acute kidney failure, unspecified (principal)
CPT/HCPCS: 36415; 80053

== ENCOUNTER 2024-11-30 15:24 | Outpatient (CLI) | payer OTHER, SELFPAY ==
[2024-11-30 16:01] LABS: Anion Gap 14.7 (5-19); Blood Urea Nitrogen 33 mg/dL (8-23); Calcium 9.8 mg/dL (8.5-10.5); Carbon Dioxide 21 mmol/L (22-29); Chloride 102 mmol/L (98-107); Glomerular Filtration Rate 51.7 mL/min (90-130); Glucose 365 mg/dL (65-115); Osmolality Calculated 294 mOsm/kg (285-295); Sodium 131 mmol/L (136-145)
[2024-11-30 16:07] LABS: Potassium 6.7 mmol/L (3.5-5.1)
== END 2024-11-30 15:25 | disposition home or self-care (01) ==
LOC: LAB 15:25
PROVIDERS: PCP Nurse Practitioner Family; Visit Provider Internal Medicine
DX: E78.5 Hyperlipidemia, unspecified (principal); N18.9 Chronic kidney disease, unspecified
CPT/HCPCS: 36415; 80048

== ENCOUNTER 2024-11-30 16:27 | Inpatient (IN) | payer OTHER, SELFPAY ==
[2024-11-30] VITALS (11 sets, daily range): BP systolic 108–167; BP diastolic 51–82; PULSE 52–74; RESP 14–20; TEMP 36.2–36.6; O2SAT 94–97; BMI 33.3
--- NOTE | 2024-11-30 16:52 | ECG_ITS ---
[facility] Test Date: 2024-11-30 Pat Name: Hans Forbes Department: Room: Gender: Male Funeral Home Assistant: : 1965 Requested By: Juancarlos Gongora Order Number: [id number] Dobson MD: Pino Arias M.D. Measurements Intervals [place]campment Rate: 53 P: 0 AR: 0 QRS: 74 QRSD: 88 T: 50 QT: 353 QTc: 331 Interpretive Statements SINUS BRADYCARDIA WITH 2ND DEGREE AV BLOCK, 2:1 OR MOBITZ TYPE II Compared to ECG 02/28/2020 18:38:24 Sinus rhythm no longer present Myocardial infarct finding no longer present Electronically Signed On 12-01-2024 21:55:46 BLOOD BANK SUPERVISOR by Pino Arias M.D. [email or web address]
[2024-11-30 17:22] LABS: Basophils # 0.1 10^3/uL (0.0-0.1); Basophils % 0.8 %; Eosinophils # 0.3 10^3/uL (0.0-0.8); Eosinophils % 3.4 %; Hematocrit 40.6 % (37-53); Lymphocytes # 1.5 10^3/uL (0.8-4.8); Lymphocytes % 19.4 %; Mean Corpuscular HGB Conc 33.5 g/dL (30-55); Mean Corpuscular Hemoglobin 30.4 pg (27-33); Mean Corpuscular Volume 90.6 fl (82-101); Mean Platelet Volume 10.4 fL (7.4-10.4); Monocytes # 0.6 10^3/uL (0.2-0.9); Neutrophils # 5.19 10^3/uL (1.8-7.7); Nucleated Red Blood Cells % 0 %; Platelet Count 178 10^3/cmm (157-399); Red Blood Count 4.48 10^6/uL (3.85-5.65); Red Cell Distribution Width 14.7 % (12.1-15.1); White Blood Count 7.63 10^3/uL (3.29-11.43)
[2024-11-30 17:43] LABS: Alanine Aminotransferase 27 U/L (0-41); Albumin Level 4.2 g/dL (3.5-5.2); Alkaline Phosphatase 61 U/L (40-130); Anion Gap 16.5 (5-19); Aspartate Amino Transferase 22 U/L (0-40); Blood Urea Nitrogen 35 mg/dL (8-23); Calcium 9.6 mg/dL (8.5-10.5); Carbon Dioxide 19 mmol/L (22-29); Chloride 103 mmol/L (98-107); Creatinine Clr Calc Pharmacy 71.4767; Globulin 3.1 g/dL (1.3-4.6); Glomerular Filtration Rate 47.7 mL/min (90-130); Glucose 295 mg/dL (65-115); Osmolality Calculated 293 mOsm/kg (285-295); Sodium 132 mmol/L (136-145); Total Bilirubin 0.4 mg/dL (0.15-1.2); Total Protein 7.3 g/dL (6.6-8.7)
[2024-11-30 17:44] LABS: Potassium 6.5 mmol/L (3.5-5.1)
[2024-11-30] MEDS: sodium chloride 0.9% 1,000 ML 999 ML IV (18:02)
[2024-11-30] MEDS: calcium gluconate 0.1 gm/mL 10% SDV 10mL 1 GM IVP (18:02)
--- NOTE | 2024-11-30 18:04 | ED_ITS ---
HPI - General Adult 2 General: Chief complaint: General Medical Stated complaint: abnormal labs Time Seen by Provider: 11/30/24 17:48 Source: patient Mode of arrival: ambulatory Limitations: no limitations History of Present Illness: 59-year-old male who states that he is c alled by his physician today and told that he was hyperkalemic patient had outpatient labs drawn showed a potassium of 6.7 he denies any history of renal failure he does have a history of diabetes he denies any vomiting or diarrhea. Associated symptoms: Deny chest pain, dyspnea, headache(s), nausea, rash or vomiting Related Data Home Medications ?Medication ?Instructions ?Recorded ?Confirmed Fish Oil 1 cap PO BID 02/28/20 Zyrtec 10 mg PO DAILY 02/28/2010/27 magnesium oxide See Rx Instructions .Route . COMPLEX 02/28/20 11/16/24 multivitamin with minerals-folic 200 mcg PO BID 11/16/24 acid 200 mcg chewable tablet (Adult Multivitamin Gummies) Previous Rx's ?Medication ?Instructions ?Recorded Diabetic shoes #1 ea 03/11/21 Custom Molded Orthotics #1 ea 11/13/21 potassium gluconate 595 mg (99 mg) 595 mg PO DAILY #90 tabs 10/01/22 tablet triamcinolone acetonide 0.1 % 1 applic topical BID PRN rash #30 11/21/22 topical cream grams blood sugar diagnostic (OneTouch #100 ea 03/18/23 Verio test strips) lancets 30 gauge and blood glucose #200 ea 10/07/23 strips combo pack blood-glucose meter #1 ea 01/05/24 cyclobenzaprine 10 mg tablet 10 mg PO TID PRN muscle s pasm #90 03/08/24 tabs furosemide 20 mg tablet (Lasix) 20 mg PO QAM #30 tabs 03/08/24 pen needle, diabetic 31 gauge x #100 ea 06/16/2403/10 allopurinol 300 mg tablet 300 mg PO DAILY #90 tabs clindamycin HCl 300 mg capsule 300 mg PO TID 10 days # 30 caps 09/12/24 enalapril maleate 20 mg tablet 20 mg PO BID #180 tabs 09/12/24 fenofibrate 160 mg tablet 160 mg PO DAILY #90 tabs glimepiride 4 mg tablet 4 mg PO BID #180 tabs insulin glargine 100 unit/mL (3 60 unit (0.6 mL) SUBCU T BID #108 mL 09/12/24 mL) subcutaneous pen (Basaglar KwikPen U-100 Insulin) pregabalin 150 mg capsule (Lyrica) 150 mg PO TID #270 caps 09/12/24 sertraline 50 mg tablet 50 mg PO BID #180 tabs 09/12 sitagliptin phosphate 50 1 tab PO BID #180 tabs 09/12 mg-metformin 1,000 mg tablet (Janumet) testosterone cypionate 200 mg/mL 150 mg (0.75 mL) SUBC UT Q14D 2 09/15/24 intramuscular oil months #3.75 mL acarbose 100 mg tablet 100 mg PO TID #90 tabs 10/18 acarbose 25 mg tablet 25 mg PO TID #90 tabs acarbose 50 mg tablet 50 mg PO TID #90 tabs blood-glucose meter,continuous #1 ea 11/17/24 (Dexcom G7 Outsole Splicer) blood-glucose sensor (Dexcom G7 #3 ea 11/17/24 Sensor device) Allergies Allergy/AdvReac Type Severity Reaction Status Date / Time sulfasalazine Allergy ADR-Itching Verified 11/30/24 17:00 Review of Systems 2 Const: Denies: fever(s), chills, body aches or change in appetite ENMT: Denies: throat pain or dental pain Card: Denies: chest pain Resp: Denies: dyspnea GI: Denies: abdominal pain, nausea, vomiting or diarrhea Musc: Denies: neck pain or back pain Skin/Breast: Denies: rash Neuro: Denies: headache(s) PFSH ED 2 PFSH: Medical History DDD (degenerative disc disease) Lung nodule Diabetic peripheral vascular disease Entrapment of right ulnar nerve Hypersomnia Vitiligo Hypertension Gout CKD (chronic kidney disease) stage 2, GFR 60-89 ml/min Dyslipidemia Colostomy hernia Surgical History History of hip surgery History of ankle surgery H/O colectomy Family History Other Chronic kidney disease (CKD) Diabetes Hypertension Denies family history of Cancer Stroke Social History Smoking and tobacco/nicotine status: never used tobacco/nicotine Second hand smoke exposure: No Alcohol intake: current Alcohol intake frequency: holidays/special occasions only Substance/Drug Use: never Adopted: No Caregiver/support person: No Lives independently: Yes Household members: spouse Housing: House Marital status: Current occupational status: employed 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, 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 Do you think of yourself as: Straight/Heterosexual Current gender identity: Male Physical Exam 2 Const: COMMON NORMALS: no acute distress, patient oriented x3 and healthy appearing HENMT: COMMON NORMALS: normocephalic and atraumatic HEAD & SCALP: n ormocephalic and atraumatic Neck/C-Spine: COMMON NORMALS: full ROM and supple Chest: COMMONS NORMALS: normal inspection of the chest Resp: COMMON NORMALS: normal respiratory effort, No retractions, No use of accessory muscles and clear to auscultation bilaterally AUSCULTATION: clear to auscultation bilaterally Cardio: COMMON NORMALS: regular rate, regular rhythm and No murmurs present (Cardio) RATE: regular rate RHYTHM: regular rhythm GI: COMMON NORMALS: Normal to inspection, nondistended, normoactive bowel sounds present, Soft to palpation, non-tender and no masses PALPATION: Yes Soft to palpation Extremity: COMMON NORMALS: normal to inspection and full ROM Neuro: COMMON NORMALS: patient oriented x3, moves all extremities and no focal motor deficits Psych: COMMON NORMALS: mental status grossly normal, Normal thought process present and cooperative THOUGHT PROCESS: Normal thought process present Skin: COMMON NORMALS: no rashes or lesions noted and no wounds GENERAL SKIN EXAM: no rashes or lesions noted Course 2 Vital Signs: Vital signs: Vital Signs Temperature 98 F 11/30/24 16:56 Pulse Rate 54 L 11/30/24 18:25 Respiratory Rate 19 H 11/30/24 18:25 Blood Pressure 108/51 11/30/24 18:25 Pulse Oximetry 96 11/30/24 18:25 Oxygen Delivery Me thod Room Air 11/30/24 16:56 MDM - General Adult Medical Decision Making Patient presents with hyperkalemia no signs of renal failure his potassium did improve here. I did speak to the hospitalist will admit for observation. Medical Records I reviewed the patient's medical records. Lab Data I reviewed the patient's lab results. 11/30/24 17:12 11/30/24 19:25 Laboratory Results WBC 7.63 10^3/uL (3.29-11.43) 11/30/24 17:12 RBC 4.48 10^6/uL (3.85-5.65) 11/30/24 17:12 Hgb 13.60 g/dL (11.27-16.99) 11/30/24 17:12 Hct 40.6 % (37-53) 11/30/24 17:12 MCV 90.6 fl (82-101) 11/30/24 17:12 MCH 30.4 pg (27-33) 11/30/24 17:12 MCHC 33.5 g/dL (30-55) 11/30/24 17:12 RDW 14.7 % (12.1-15.1) 11/30/24 17:12 Plt Count 178 10^3/cmm (157-399) 11/30/24 17:12 MPV 10.4 fL (7.4-10.4) 11/30/24 17:12 Neut % (Auto) 68.0 % 11/30/24 17:12 Lymph % (Auto) 19.4 % 11/30/24 17:12 [place] % (Auto) 8.0 % 11/30/24 17:12 Eos % (Auto) 3.4 % 11/30/24 17:12 Baso % (Auto) 0.8 % 11/30/24 17:12 Neut # (Auto) 5.19 10^3/uL (1.8-7.7) 11/30/24 17:12 Lymph # (Auto) 1.5 10^3/uL (0.8-4.8) 11/30/24 17:12 [place] # (Auto) 0.6 10^3/uL (0.2-0.9) 11/30/24 17:12 Eos # (Auto) 0.3 10^3/uL (0.0-0.8) 11/30/24 17:12 Baso # (Auto) 0.1 10^3/uL (0.0-0.1) 11/30/24 17:12 Nucleated RBC % (auto) 0 % 11/30/24 17:12 Nucleated RBCs # 0.0 /100WBC 11/30/24 17:12 Sodium 134 mmol/L (136-145) L 11/30/24 19:25 Potassium 5.8 mmol/L (3.5-5.1) H 11/30/24 19:25 Chloride 106 mmol/L (98-107) 11/30/24 19:25 Carbon Dioxide 17 mmol/L (22-29) L 11/30/24 19:25 Anion Gap 16.8 (5-19) 11/30/24 19:25 BUN 32 mg/dL (8-23) H 11/30/24 19:25 Creatinine 1.4 mg/dL (0.7-1.2) H 11/30/24 19:25 GFR Calculation 51.7 mL/min (90-130) L 11/30/24 19:25 Glucose 164 mg/dL (65-115) H 11/30/24 19:25 POC Glucose 207 mg/dL (70-110) H 11/30/24 18:40 Calculated Osmolality 289 mOsm/kg (285-295) 11/30/24 19:25 Calcium 9.6 mg/dL (8.5-10.5) 11/30/24 19:25 Total Bilirubin 0.4 mg/dL (0.15-1.2) 11/30/24 17:12 AST 22 U/L (0-40) 11/30/24 17:12 ALT 27 U/L (0-41) 11/30/24 17:12 Alkaline Phosphatase 61 U/L (40-130) 11/30/24 17:12 Total Protein 7.3 g/dL (6.6-8.7) 11/30/24 17:12 Albumin 4.2 g/dL (3.5-5.2) 11/30/24 17:12 Globulin 3.1 g/dL (1.3-4.6) 11/30/24 17:12 No radiology studies performed this visit Discharge Plan Discharge Patient Disposition: Admitted As Inpatient Clinical Impression: Acute hyperkalemia Condition: Stable Prescriptions: No Action ([facility]) Diabetic shoes See Rx Instructions .ROUTE .MEDSUPPLY Qty: 1 0RF Rx Instructions: With 3 pairs of inserts, made by [employer] ([facility]) Custom Molded Orthotics See Rx Instructions .Route .MEDSUPPLY Qty: 1 0RF Rx Instructions: As directed potassium gluconate 595 mg (99 mg) tablet 595 mg PO DAILY Qty: 90 3RF cyclobenzaprine 10 mg tablet 10 mg PO TID PRN (Reason: muscle spasm) Qty: 90 2RF furosemide [Lasix] 20 mg tablet 20 mg PO QAM Qty: 30 1RF Rx Instructions: *NEEDS APPOINTMENT WITH LABS* ([facility]) Dexcom G7 Sensor Device See Rx Instructions .Route Qty: 3 1RF Rx Instructions: change sensor every 10 days ([facility]) Dexcom G7 Outsole Splicer Misc See Rx Instructions .Route Qty: 1 0RF Rx Instructions: As directed ([facility]) OneTouch Verio test strips Strip See Rx Instructions .ROUTE .COMPLEX Qty: 100 6RF Dose Instruction: USE 1 STRIP TO CHECK GLUCOSE 4 TIMES DAILY *E11.42* Rx Instructions: USE 1 STRIP TO CHECK GLUCOSE 4 TIMES DAILY *E11.42* ([facility]) lancets-blood glucose strips 30 gauge combo pack See Rx Instructions .ROUTE .MEDSUPPLY Qty: 200 6RF Rx Instructions: As directed Checking four times a day. Now on insulin ([facility]) blood-glucose meter Kit See Rx Instructions .Route Qty: 1 0RF Rx Instructions: As directed Verio One Touch Reflect Glucometer testosterone cypionate 200 mg/mL oil 150 mg SUBCUT Q14D 60 Days Qty: 3.75 0RF clindamycin HCl 300 mg capsule 300 mg PO TID 10 Days Qty: 30 0RF fenofibrate 160 mg tablet 160 mg PO DAILY Qty: 90 1RF pregabalin [Lyrica] 150 mg capsule 150 mg PO TID Qty: 270 1RF sertraline 50 mg tablet 50 mg PO BID Qty: 180 1RF allopurinol 300 mg tablet 300 mg PO DAILY Qty: 90 1RF enalapril maleate 20 mg tablet 20 mg PO BID Qty: 180 1RF glimepiride 4 mg tablet 4 mg PO BID Qty: 180 1RF Janumet 50-1,000 mg tablet 1 tab PO BID Qty: 180 1RF insulin glargine [Basaglar KwikPen U-100 Insulin] 100 unit/mL (3 mL) insulin pen 60 unit SUBCUT BID Qty: 108 1RF triamcinolone acetonide 0.1 % cream 1 applic topical BID PRN (Reason: rash) Qty: 30 1RF (DME) pen needle, diabetic 31 gauge x 5/16 needle See Rx Instructions .ROUTE .COMPLEX Qty: 100 2RF Dose Instruction: USE DIRECTED Rx Instructions: USE DIRECTED acarbose 50 mg tablet 50 mg PO TID Qty: 90 0RF Rx Instructions: take 50mg 3x/day before each meal for one month than increase dose to 100mg acarbose 100 mg tablet 100 mg PO TID Qty: 90 1RF Rx Instructions: take 100mg 3x/day before each meal acarbose 25 mg tablet 25 mg PO TID Qty: 90 0RF Rx Instructions: take 25mg 3x/day before each meal for one month than increase dose to 50mg Adult Multivitamin Gummies 200 mcg Tablet,Chewable 200 mcg PO BID magnesium oxide 400 mg magnesium Capsule See Rx Instructions .ROUTE .COMPLEX Rx Instructions: 1 CAP IN THE AM AND 2 CAPS AT BEDTIME Fish Oil 1 cap PO BID Zyrtec 10 mg PO DAILY Referrals: Mellisa Carvajal FNP [Primary Care Provider] - Print Language: Libyan Coding Level of Care Code ED Retail Receiving Clerk for Jarod Whiting
[2024-11-30] MEDS: insulin regular-human 100 units/1 mL 10 UNIT IVP (18:06)
[2024-11-30 18:43] LABS: Glucose Point of Care 207 mg/dL (70-110)
[2024-11-30 19:51] LABS: Blood Urea Nitrogen 32 mg/dL (8-23); Calcium 9.6 mg/dL (8.5-10.5); Carbon Dioxide 17 mmol/L (22-29); Chloride 106 mmol/L (98-107); Creatinine Clr Calc Pharmacy 76.5822; Glomerular Filtration Rate 51.7 mL/min (90-130); Glucose 164 mg/dL (65-115); Osmolality Calculated 289 mOsm/kg (285-295); Sodium 134 mmol/L (136-145)
[2024-11-30 20:16] LABS: Anion Gap 16.8 (5-19); Potassium 5.8 mmol/L (3.5-5.1)
--- NOTE | 2024-11-30 20:38 | PC.RESP ---
RT was not informed of tx ordered at 1849. Dr Gongora notiified, states to cancel tx.
[2024-11-30 20:48] LABS: Potassium 5.7 mmol/L (3.5-5.1)
--- NOTE | 2024-11-30 20:56 | PM.HP ---
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 Patient is stating that he has not experienced any symptoms at all, no shortness of breath chest pain nausea vomiting diarrhea or generalized weakness. His potassium was 6.7 at the clinic, he received hyperkalemia cocktail in the ER, potassium is improved to 5.7 however EKG showing second degree high degree AV block with stable hemodynamics patient not expressing any symptoms at all. No previous history of bradycardia. He does not take any AV hari blocking agent. I have requested serial troponin and EKG requested ICU admission, patient had received calcium gluconate already, I will request echo, discontinue enalapril. Add bicarb. EKG showing high degree AV block Patient is asymptomatic Hemodynamically stable Heart rate around 60 at the time of my evaluation Blood pressure 120/70 mmHg at the time of evaluation in the ER Patient is stating that he has not noticed any change in colostomy bag output he empties 4-5 times a day. Patient is stating that lately he has been eating high potassium food, he has a list of high potassium foods that he is going to change, recently carbose, Janumet discontinued by endocrinology secondary to worsening chronic kidney disease Patient does not follow-up with wire straightener Review of Systems Const: Denies: fever(s) Eyes: Denies: change in vision ENMT: Denies: throat pain Card: Denies: chest pain Resp: Denies: dyspnea GI: Denies: abdominal pain Medications/Allergies Home Medications ?Medication ?Instructions ?Recorded ?Confirmed ?Last Taken ?Type Fish Oil 1 cap PO BID 02/28/20 11/16/24 1 Day Ago History ~08/29/21 Zyrtec 10 mg PO DAILY 02/28/20 11/16/24 1 Day Ago History ~08/29/21 magnesium oxide See Rx Instructions .Route .COMPLEX 02/28/20 11/16/24 1 Day Ago History ~08/29/21 multivitamin with minerals-folic 200 mcg PO BID 02/28/20 11/16/24 1 Day Ago History acid 200 mcg chewable tablet ~08/29/21 (Adult Multivitamin Gummies) Diabetic shoes #1 ea 03/11/21 11/16/24 Unknown Rx Custom Molded Orthotics #1 ea 11/13/21 11/16/24 Unknown Rx potassium gluconate 595 mg (99 mg) 595 mg PO DAILY #90 tabs 10/01/22 11/16/24 Unknown Rx tablet triamcinolone acetonide 0.1 % 1 applic topical BID PRN rash #30 11/21/22 11/16/24 Unknown Rx topical cream grams blood sugar diagnostic (OneTouch #100 ea 03/18/23 11/16/24 Unknown Rx Verio test strips) lancets 30 gauge and blood glucose #200 ea 10/07/23 11/16/24 Unknown Rx strips combo pack blood-glucose meter #1 ea 01/05/24 11/16/24 Unknown Rx cyclobenzaprine 10 mg tablet 10 mg PO TID PRN muscle spasm #90 03/08/24 11/16/24 Unknown Rx tabs furosemide 20 mg tablet (Lasix) 20 mg PO QAM #30 tabs 03/08/24 11/16/24 Unknown Rx pen needle, diabetic 31 gauge x #100 ea 06/16/24 11/16/24 Unknown Rx 5/16 allopurinol 300 mg tablet 300 mg PO DAILY #90 tabs 09/12/24 11/16/24 Unknown Rx clindamycin HCl 300 mg capsule 300 mg PO TID 10 days #30 caps 09/12/24 11/16/24 Unknown Rx enalapril maleate 20 mg tablet 20 mg PO BID #180 tabs 09/12/24 11/16/24 Unknown Rx fenofibrate 160 mg tablet 160 mg PO DAILY #90 tabs 09/12/24 11/16/24 Unknown Rx glimepiride 4 mg tablet 4 mg PO BID #180 tabs 09/12/24 11/16/24 Unknown Rx insulin glargine 100 unit/mL (3 60 unit (0.6 mL) SUBCUT BID #108 mL 09/12/24 11/16/24 Unknown Rx mL) subcutaneous pen (Hadley Baker U-100 Insulin) pregabalin 150 mg capsule (Lyrica) 150 mg PO TID #270 caps 09/12/24 11/16/24 Unknown Rx sertraline 50 mg tablet 50 mg PO BID #180 tabs 09/12/24 11/16/24 Unknown Rx sitagliptin phosphate 50 1 tab PO BID #180 tabs 09/12/24 11/16/24 Unknown Rx mg-metformin 1,000 mg tablet (Janumet) testosterone cypionate 200 mg/mL 150 mg (0.75 mL) SUBCUT Q14D 2 09/15/24 11/16/24 Unknown Rx intramuscular oil months #3.75 mL acarbose 100 mg tablet 100 mg PO TID #90 tabs 10/18/24 11/16/24 Unknown Rx acarbose 25 mg tablet 25 mg PO TID #90 tabs 10/18/24 11/16/24 Unknown Rx acarbose 50 mg tablet 50 mg PO TID #90 tabs 10/18/24 11/16/24 Unknown Rx blood-glucose meter,continuous #1 ea 11/17/24 11/17/24 Unknown Rx (Dexcom G7 Frozen Meat [employer]) blood-glucose sensor (Dexcom G7 #3 ea 11/17/24 11/17/24 Unknown Rx Sensor device) Allergies Allergy/AdvReac Type Severity Reaction Status Date / Time sulfasalazine Allergy ADR-Itching Verified 11/30/24 17:00 PFSH Acute PFSH: Medical History DDD (degenerative disc disease) Lung nodule Diabetic peripheral vascular disease Entrapment of right ulnar nerve Hypersomnia Vitiligo Hypertension Gout CKD (chronic kidney disease) stage 2, GFR 60-89 ml/min Dyslipidemia Colostomy hernia Surgical History History of hip surgery History of ankle surgery H/O colectomy Family History Other Chronic kidney disease (CKD) Diabetes Hypertension Denies family history of Cancer Stroke Social History Smoking and tobacco/nicotine status: never used tobacco/nicotine Second hand smoke exposure: No Alcohol intake: current Alcohol intake frequency: holidays/special occasions only Substance/Drug Use: never Adopted: No Caregiver/support person: No Lives independently: Yes Household members: spouse Housing: House Marital status: Current occupational status: employed 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, 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 Do you think of yourself as: Straight/Heterosexual Current gender identity: Male Vitals/I&O/Wt Last Vital Signs Temp 98 F 11/30/24 16:56 Pulse 54 L 11/30/24 18:25 Resp 19 H 11/30/24 18:25 BP 108/51 11/30/24 18:25 Pulse Ox 96 11/30/24 18:25 O2 Del Method Room Air 11/30/24 16:56 Weight last 48 hrs Weight 117.934 kg Physical Exam Narrative: Morbidly obese Awake and alert No active chest pain shortness of breath nausea vomiting or diarrhea Patient not endorsing abdominal pain, output from colostomy bag has not increased or changed recently No nausea vomiting Awake and alert No audible stridor or wheezing Heart rate around 60 Blood pressure stable Awake and alert AOx4 Nonfocal neuroexam S1, S2 Pleasant and cooperative Data 11/30/24 17:12 11/30/24 20:25 A&P Assessment and plan (1) High degree atrioventricular block: (2) Hypertension: Qualifiers: Hypertension type: essential hypertension Qualified Code(s): I10 - Essential (primary) hypertension (3) Type 2 diabetes mellitus with diabetic polyneuropathy: Qualifiers: Diabetes mellitus custodial insulin use: without custodial use Qualified Code(s): E11.42 - Type 2 diabetes mellitus with diabetic polyneuropathy (4) Colostomy hernia: (5) CKD (chronic kidney disease): (6) Acute hyperkalemia: (7) Fatigue: (8) Metabolic acidosis: Plan Acute hyperkalemia This seems to be a combination/multifactorial related to diet indiscretion, enalapril, worsening chronic kidney disease Hyperkalemia cocktail given in the ER, repeat potassium improved Calcium gluconate administered Hemodynamically stable EKG showed high degree AV block admit to ICU Monitor closely Apply pacer pads No need of dopamine at this point Discontinue enalapril Acute on chronic kidney disease Add bicarb p.o. 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, he has reached out to [facility] wire straightener who gave him appointment around April, in [place] he is getting appointment on May Hyperkalemia with acidosis and kidney disease with normal anion gap could be part of renal tubular acidosis, bicarb tablet added Secondary high degree AV block Serial troponin and EKG Request echo Check TSH, B12 and magnesium Patient does not take any AV hari blocking agent Rule out reversible causes of high degree AV block If high degree AV block persist, may need cardiology consultation in the morning Apply pacer pads No need of dopamine Patient hemodynamically stable Insulin-dependent diabetic: Recently acarbose and Janumet discontinued by endocrinology I will reduce dose of insulin to 40 units twice daily instead of 50 and use consistent carb diet along sliding scale Diabetic with neuropathy, decrease dose of Lyrica to twice a day instead of 3 times a day 150 mg Full code Consistent carb diet Admit to ICU DVT prophylaxis: Heparin PDMP PDMP Reviewed: Not Reviewed Attestations Medical Necessity Statement*: More than 2 midnights anticipated Diagnoses High degree atrioventricular block I44.39 Essential hypertension I10 Hypertension type: essential hypertension Type 2 diabetes mellitus with diabetic polyneuropathy, without long-term current use of insulin E11.42 Diabetes mellitus long term care administrator insulin use: without long term care administrator use Colostomy hernia K94.09 CKD (chronic kidney disease) N18.9 Acute hyperkalemia E87.5 Fatigue R53.83 Metabolic acidosis E87.20
--- NOTE | 2024-11-30 21:22 | ECG_ITS ---
[facility] Test Date: 2024-12-01 Pat Name: Hans Forbes Department: Room: [facility] Gender: Male Regional Business Development Manager: : 1965 Requested By: Heidi Nieves Order Number: [id number] Olya MD: Pino Arias M.D. Measurements Intervals [place] Rate: 67 P: 19 [place]: 181 QRS: 36 QRSD: 88 T: 48 QT: 341 QTc: 361 Interpretive Statements SINUS RHYTHM Compared to ECG 12/01/2024 02:47:06 No significant changes Electronically Signed On 12-01-2024 21:52:17 CARPENTER'S HELPER by Pino Arias M.D. [id number] [id number]
[2024-11-30] MEDS: heparin 5,000 unit/mL INJ 1 mL 5000 UNIT SUBCUT (21:37)
[2024-11-30 21:50] LABS: Troponin(5th) Baseline 23 ng/L (0-15)
[2024-11-30 21:58] LABS: Troponin 5 2HR 22.19 ng/L (0-15)
--- NOTE | 2024-11-30 22:00 | USCV_ITS ---
Hans Forbes Age: 59 Gender: M : 1965 Exam Date: 11/30/2024 23:09 Ordering Phys: Heidi Nieves MD Technologist: JAYY Exam Location: [facility] [place] Indication: hyperkalemia, chronic renal disease, IDDM BP: 108 / 57 HR: 61 Rhythm: Sinus Technical Quality: Adequate MEASUREMENTS (Male / Female) Normal Values 2D ECHO LV Diastolic Diameter PLAX 4.9 cm 4.2 - 5.9 / 3.9 - 5.3 cm IVS Diastolic Thickness 1.8 cm 0.6 - 1.0 / 0.6 - 0.9 cm IVS Systolic Thickness 2.3 cm LVPW Diastolic Thickness 1.5 cm 0.6 - 1.0 / 0.6 - 0.9 cm LVPW Systolic Thickness 1.8 cm LVOT Diameter 2.4 cm LV Ejection Fraction 2D Teich 68.0 % LV Ejection Fraction MOD 4C 55.6 % LV Ejection Fraction MOD 2C 37.3 % LV Ejection Fraction 2C AL 40.1 % LA Diameter 3.3 cm Aorta at Sinotubular Diameter 3.2 cm IVC Diameter 1.3 cm M-MODE LA Ao Ratio MM 1.4 AV Cusp Separation MM 2.0 cm DOPPLER AV Peak Velocity 102.0 cm/s LVOT Peak Velocity 76.0 cm/s AV Area Cont Eq vti 3.7 cm squared AV Area Cont Eq pk 3.4 cm squared MV Peak Velocity 81.0 cm/s MV Area PHT 2.6 cm squared Mitral E to A Ratio 0.8 TR Peak Velocity 238.0 cm/s TR Peak Gradient 22.7 mmHg TV Peak E Velocity 49.0 cm/s PV Peak Velocity 126.0 cm/s FINDINGS Left Ventricle Technically limited quality echocardiogram because of poor ultrasonic windows. Left ventricle is normal in size. LV systolic function is normal with EF 50-55%. No gross regional wall motion normalities are seen. Right Ventricle Normal in size and function Right Atrium Normal in size Left Atrium Normal in size Mitral Valve Mild mitral annular calcification. Trace mitral regurgitation. Aortic Valve Structurally normal aortic valve. No significant stenosis or regurgitation. Tricuspid Valve Insufficient TR jet to calculate RVSP Pulmonic Valve Not well visualized Pericardium Normal Aorta Ascending aorta is mildly dilated with diameter of 3.72 cm IVC Appears to be normal CONCLUSIONS Technically limited quality echocardiogram because of poor ultrasonic windows. LV systolic function is normal with EF 50-55%. Trace mitral regurgitation. Ascending aorta is mildly dilated with diameter of 3.72 cm No comparison studies are available. Pino Arias MD (Electronically Signed) Final Date: 01 December 2024 11:03 S
[2024-11-30 22:01] LABS: Troponin 5 2HR Delta -0.81 ABS# (0-10)
[2024-11-30 23:02] LABS: Glucose Point of Care 122 mg/dL (70-110)
[2024-11-30] MEDS: pregabalin 150 mg Capsule PO (23:05)
[2024-11-30] MEDS: sodium bicarbonate 650 mg Tablet PO (23:05)
--- NOTE | 2024-11-30 23:22 | ECG_ITS ---
[facility] Test Date: 2024-12-01 Pat Name: aHns Forbes Department: Room: [facility] Gender: Male Principal Associate: : 1965 Requested By: Heidi Nieves Order Number: [id number] Olya MD: Pino Arias M.D. Measurements Intervals [place] Rate: 62 P: 27 MT: 186 QRS: 31 QRSD: 90 T: 55 QT: 342 QTc: 349 Interpretive Statements SINUS RHYTHM WITH SINUS ARRHYTHMIA Compared to ECG 11/30/2024 16:52:38 Sinus bradycardia no longer present Electronically Signed On 12-01-2024 22:16:47 RADIATION TECHNICIAN by Pino Arias M.D. [email or web address]
[2024-12-01] VITALS (25 sets, daily range): BP systolic 115–145; BP diastolic 61–85; PULSE 55–77; RESP 15–23; TEMP 36.1–36.8; O2SAT 93–97
[2024-12-01 00:50] LABS: Thyroid Stimulating Hormone 3.05 uIU/mL (0.27-4.20)
[2024-12-01 00:56] LABS: Vitamin B12 > 2000 pg/mL (232-1245)
[2024-12-01 01:39] LABS: Basophils % 0.5 %; Eosinophils % 0.2 %; Hematocrit 39.2 % (37-53); Lymphocytes # 1.5 10^3/uL (0.8-4.8); Lymphocytes % 22.6 %; Mean Corpuscular HGB Conc 33.2 g/dL (30-55); Mean Corpuscular Hemoglobin 30.2 pg (27-33); Mean Platelet Volume 10.3 fL (7.4-10.4); Monocytes # 0.5 10^3/uL (0.2-0.9); Monocytes % 7.9 %; Neutrophils % 68.2 %; Nucleated Red Blood Cells % 0 %; Platelet Count 164 10^3/cmm (157-399); Red Blood Count 4.31 10^6/uL (3.85-5.65); Red Cell Distribution Width 14.9 % (12.1-15.1); White Blood Count 6.45 10^3/uL (3.29-11.43)
[2024-12-01 02:01] LABS: Troponin 5 6HR 24.19 ng/L (0-15); Troponin 5 6HR Delta 1.19 ng/L (0-12)
[2024-12-01 02:04] LABS: Anion Gap 15.2 (5-19); Blood Urea Nitrogen 35 mg/dL (8-23); Calcium 9.6 mg/dL (8.5-10.5); Carbon Dioxide 23 mmol/L (22-29); Chloride 105 mmol/L (98-107); Creatinine Clr Calc Pharmacy 71.8664; Glomerular Filtration Rate 47.7 mL/min (90-130); Glucose 184 mg/dL (65-115); Magnesium 1.5 mg/dL (1.7-2.3); Osmolality Calculated 299 mOsm/kg (285-295); Potassium 5.2 mmol/L (3.5-5.1); Sodium 138 mmol/L (136-145)
[2024-12-01 02:18] LABS: Phosphorus 3.4 mg/dL (2.5-4.5)
--- NOTE | 2024-12-01 03:22 | ECG_ITS ---
[facility] Test Date: 2024-12-01 Pat Name: Hans Forbes Department: Room: [facility] Gender: Male Branch Maker: : 1965 Requested By: Heidi Nieves Order Number: [id number] Olya MD: Pino Arias M.D. Measurements Intervals [place] Rate: 63 P: 16 FL: 191 QRS: 26 QRSD: 89 T: 50 QT: 340 QTc: 350 Interpretive Statements SINUS RHYTHM Compared to ECG 12/01/2024 00:25:55 Sinus arrhythmia no longer present Electronically Signed On 12-01-2024 22:16:42 FINANCIAL PLANNING ASSISTANT by Pino Arias M.D. [id number] [id number]
[2024-12-01 04:55] LABS: Potassium, Radom Urine 33 mmol/L; Urine Creatinine 79 mg/dL (39-259); Urine Random Chloride 67 mmol/L; Urine Random Sodium 62 mmol/L
[2024-12-01 05:00] LABS: Creatinine Urine, Random 79 mg/dL (39-259); Microalbum Creatinine Ratio Ur 13 mg/dL (0-20); Microalbumin Random Urine 1 ug/dL (0-20)
[2024-12-01] MEDS: pregabalin 150 mg Capsule PO ×3 (07:29→22:50)
[2024-12-01 07:35] LABS: Glucose Point of Care 104 mg/dL (70-110)
--- OUTSIDE RECORDS SUMMARY | 2024-12-01 07:50 | XMS_ITS | Clinical Summary ---
Author Organization [facility] Administrative Offices Address [address] [place] [id number] Care Team Providers Care Cash Application Representative Name Role Phone Unavailable Primary Care Provider Unavailabl e Allergies Active Allergy Reactions Criticality Noted Date Comments Sulfa (Sulfonamide Antibiotics) Hives High 09/25 Medications No known medications Active Problems No known active problems Social History Tobacco Use Types Packs/Day Years Used Date Smoking Tobacco: Former Cigarettes Smokeless Tobacco: Former Tobacco Cessation:Counseling Given: Not Answered Sex and Gender Information Value Date Recorded Sex Assigned at Not on file Legal 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 Gender Identity Not on file Sexual Orientation Not on file Last Filed Vital Signs Vital Sign Reading Time Taken Comments Blood Pressure 91/56 10/08/2022 1:26 PM MOTOR PATROL OPERATOR Pulse 80 10/08/2022 1:26 PM MOTOR PATROL OPERATOR Temperature - - Respiratory Rate - - Oxygen Saturation - - Inhaled Oxygen Concentration - - Weight 108 kg (238 lb) 10/08/2022 1:26 PM MOTOR PATROL OPERATOR Height 189 cm (6' 2.4 ) 10/08/2022 1:26 PM MOTOR PATROL OPERATOR Body Mass Index 30.23 10/08/2022 1:26 PM MOTOR PATROL OPERATOR Plan of Treatment Health Maintenance Due Date Last Done Comments PNEUMOCOCCAL VACCINE 0-64 YEARS (1 of 2 - PCV) 1970 DIABETES ANNUAL FOOT EXAM 1982 DIABETES ANNUAL RETINAL EXAM 1982 DIABETES HBA1C Q 6 MONTHS 1982 DIABETES MICROALBUMIN ANNUAL SCREEN 1982 LDL CHOLESTEROL ANNUAL 1982 DTAP/TDAP/TD VACCINES (1 - Tdap) 1983 COLORECTAL SCREENING 2009 Colorectal Cancer Screening 2009 FIT-DNA Q 3 years 2009 FIT/FOBT Q 1 year 2009 Flex Sig/CT Colonography Q 5 years 2009 ZOSTER VACCINE (1 of 2) 2014 INFLUENZA VACCINE (#1) 2024 RSV VACCINE (60+ or ) (1 - Risk 60-74 years 1-dose series) 2024 COVID-19 Vaccine (4 - 2023-2 5 season) 2024 08/09/2021, 12/21/2020, 11/23/2020 HEPATITIS B VACCINES Aged Out No long er eligible based on patient's age to complete this topic [place] [address] [place] [address]
[2024-12-01] MEDS: sodium polystyrene sulfonate 15 gm/60 mL Btl PO ×3 (08:37→20:30)
[2024-12-01] MEDS: heparin 5,000 unit/mL INJ 1 mL 5000 UNIT SUBCUT ×2 (08:37→20:35)
[2024-12-01] MEDS: allopurinol 300 mg Tablet PO (08:38)
[2024-12-01] MEDS: sodium bicarbonate 650 mg Tablet PO ×3 (08:38→20:36)
[2024-12-01] MEDS: sertraline 50 mg Tablet PO ×2 (08:44→18:13)
[2024-12-01] MEDS: FUROsemide 20 mg Tablet PO (08:44)
[2024-12-01] MEDS: insulin glargine 100 units/1 mL 40 UNIT SUBCUT ×2 (08:45→18:13)
--- NOTE | 2024-12-01 09:10 | PC.PHAR ---
Verified pts' current medications with Pratik Orourke
[2024-12-01 11:47] LABS: Glucose Point of Care 217 mg/dL (70-110)
[2024-12-01 12:55] LABS: Blood Urea Nitrogen 31 mg/dL (8-23); Calcium 9.7 mg/dL (8.5-10.5); Carbon Dioxide 17 mmol/L (22-29); Chloride 107 mmol/L (98-107); Creatinine Clr Calc Pharmacy 83.2639; Glomerular Filtration Rate 56.3 mL/min (90-130); Glucose 184 mg/dL (65-115); Osmolality Calculated 293 mOsm/kg (285-295); Sodium 136 mmol/L (136-145)
[2024-12-01 12:58] LABS: Anion Gap 17.6 (5-19); Potassium 5.6 mmol/L (3.5-5.1)
[2024-12-01] MEDS: insulin lispro 100 unit/1 mL SUBCUT ×3 (14:21→20:51)
--- NOTE | 2024-12-01 16:49 | ECG_ITS ---
[facility]01 Pat Name: Hans Forbes Department: Room: [facility]07 Gender: Male Hiv Counselor: : 1965 Requested By: Ulysses Adorno Order Number: [id number] Dobson MD: Pino Arias M.D. Measurements Intervals [place] Rate: 50 P: 31 LA: 173 QRS: 31 QRSD: 87 T: 49 QT: 364 QTc: 334 Interpretive Statements SINUS BRADYCARDIA WITH MARKED SINUS ARRHYTHMIA Compared to ECG 12/01/2024 05:51:56 Sinus rhythm no longer present Electronically Signed On 12-01-2024 21:48:20 SHOE COVERER by Pino Arias M.D. [email or web address] [id number]
--- NOTE | 2024-12-01 16:50 | PM.PN ---
Subjective Subjective: Patient was seen this morning, he is alert and oriented x 3, following all commands, no fevers, no chills, no cough no chest pain, no palpitations no cardiovascular history, denies a history of arrhythmia, -In the afternoon potassium is, up to 5.6, insulin, D10, calcium gluconate ordered, started on Kayexalate -In the afternoon, patient had on telemetry monitoring type II secondary AV block transiently, which subsequently resolved EKG ordered he is also asymptomatic -Discussed with nurse keep patient Vitals/I&O/Wt Last Vital Signs Temp 97.5 F L 12/01/24 05:00 Pulse 55 L 12/01/24 16:00 Resp 19 H 12/01/24 16:00 BP 129/76 12/01/24 16:00 Pulse Ox 93 12/01/24 09:12 O2 Del Method Room Air 12/01/24 09:12 12/01/24 12/01/24 12/01/24 06:59 14:59 22:59 Intake Total 480 / 1480 450 / 450 Output Total 1125 / 1125 1450 / 1450 Balance -645 / 355 -1000 / -1000 Weight last 48 hrs Weight 120.247 kg Weight 119.249 kg Weight 117.934 kg Physical Exam Const: COMMON NORMALS: no acute distress and patient oriented x3 Resp: COMMON NORMALS: normal respiratory effort, No retractions, No use of accessory muscles and clear to auscultation bilaterally AUSCULTATION: clear to auscultation bilaterally Cardio: COMMON NORMALS: regular rate, regular rhythm, S1 normal heart sound present and S2 normal heart sound present RATE: regular rate RHYTHM: regular rhythm HEART SOUNDS: S1 normal heart sound present and S2 normal heart sound present GI: COMMON NORMALS: Normal to inspection, nondistended, normoactive bowel sounds present and non-tender Extremity: COMMON NORMALS: no pedal edema Neuro: COMMON NORMALS: patient oriented x3 Psych: COMMON NORMALS: mental status grossly normal Data 12/01/24 01:33 12/01/24 12:11 A&P Assessment and plan (1) High degree atrioventricular block: (2) Hypertension: Qualifiers: Hypertension type: essential hypertension Qualified Code(s): I10 - Essential (primary) hypertension (3) Type 2 diabetes mellitus with diabetic polyneuropathy: Qualifiers: Diabetes mellitus custodial insulin use: without adjunct faculty for medical terminology use Qualified Code(s): E11.42 - Type 2 diabetes mellitus with diabetic polyneuropathy (4) Colostomy hernia: (5) CKD (chronic kidney disease): (6) Acute hyperkalemia: (7) Fatigue: (8) Metabolic acidosis: Plan Acute hyperkalemia This seems to be a combination/multifactorial related to diet indiscretion, enalapril, worsening chronic kidney disease Hyperkalemia cocktail given in the ER, repeat potassium improved Potassium up to 5.6 -Will order calcium gluconate, insulin, D10 -Check BMP every 6 hours Hemodynamically stable Initial EKG showed second-degree type II AV block, admitted to ICU, now back to normal sinus rhythm, this afternoon had another episode of transient second-degree AV block, now back to sinus rhythm Monitor closely Apply pacer pads No need of dopamine at this point Discontinue enalapril Acute on chronic kidney disease Add bicarb p.o. 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 LV systolic function is normal with EF 50-55%. Trace mitral regurgitation. Ascending aorta is mildly dilated with diameter of 3.72 cm No comparison studies are available. Patient does not take any AV hari blocking agent Rule out reversible causes of high degree AV block Cardiology consulted Apply pacer pads No need of dopamine Patient hemodynamically stable Insulin-dependent diabetic: Recently acarbose and Janumet discontinued by endocrinology I will reduce dose of insulin to 40 units twice daily instead of 50 and use consistent carb diet along sliding scale Diabetic with neuropathy, decrease dose of Lyrica to twice a day instead of 3 times a day 150 mg Full code Consistent carb diet Admit to ICU DVT prophylaxis: Heparin Plan for today consulted cardiology, consulted nephrology, repeat insulin/D10, calcium gluconate for hyperkalemia Kayexalate, follow urine studies cardiac echo telemetry monitoring PDMP PDMP Reviewed: Not Reviewed Attestations Medical Necessity Statement*: Patient requires hospitalization for hyperkalemia, second-degree type II AV block Diagnoses High degree atrioventricular block I44.39 Essential hypertension I10 Hypertension type: essential hypertension Type 2 diabetes mellitus with diabetic polyneuropathy, without long-term current use of insulin E11.42 Diabetes mellitus adjunct faculty for medical terminology insulin use: without adjunct faculty for medical terminology use Colostomy hernia K94.09 CKD (chronic kidney disease) N18.9 Acute hyperkalemia E87.5 Fatigue R53.83 Metabolic acidosis E87.20
[2024-12-01] MEDS: calcium gluconate 0.1 gm/mL 10% SDV 10mL 1 GM IVP (16:58)
[2024-12-01] MEDS: dextrose 10% 125 ML 750 ML IV (16:59)
[2024-12-01 17:01] LABS: Glucose Point of Care 176 mg/dL (70-110)
[2024-12-01] MEDS: insulin regular-human 100 units/1 mL 10 UNIT IVP (17:20)
[2024-12-01] MEDS: citric acid-sodium citrate 30 mL UDC PO ×2 (18:13→20:30)
[2024-12-01 18:47] LABS: Blood Urea Nitrogen 33 mg/dL (8-23); Calcium 10.2 mg/dL (8.5-10.5); Carbon Dioxide 18 mmol/L (22-29); Chloride 105 mmol/L (98-107); Creatine Phosphokinase 83 U/L (39-308); Creatinine Clr Calc Pharmacy 83.2639; Glomerular Filtration Rate 56.3 mL/min (90-130); Glucose 147 mg/dL (65-115); Osmolality Calculated 290 mOsm/kg (285-295); Sodium 135 mmol/L (136-145); Uric Acid 3.5 mg/dL (3.4-7.0)
[2024-12-01 18:51] LABS: Anion Gap 18.2 (5-19); Potassium 6.2 mmol/L (3.5-5.1)
--- NOTE | 2024-12-01 19:10 | PM.CONSULT ---
Providers/Reason For Consult Consulting Physician/Specialty*: kommana/Nephrology Reason for Consult*: persistent hyperkalemia Attending Physician: Ulysses Adorno MD Primary Care Provider: KASSIDY Floyd History of Present Illness History of Present Illness Hans Forbes is a 59 year old male Patient is a 59-year-old male with past medical history of chronic kidney disease, diabetes type 2, hypertension, history of ulcerative colitis status post valladares colectomy in 2014 presented to the emergency department from endocrinology clinic due to abnormal labs. His potassium was 6.7. Improved to 5.7 but again worsened to 6.2 this morning. EKG showed second-degree AV block. CHIKA inhibitor discontinued. Review of Systems Narrative: negative Medications/Allergies Home Medications ?Medication ?Instructions ?Recorded ?Confirmed ?Last Taken ?Type magnesium oxide See Rx Instructions .Route .COMPLEX 02/28/20 12/01/24 1 Day Ago History ~08/29/21 multivitamin with minerals-folic 200 mcg PO BID 02/28/20 12/01/24 1 Day Ago History acid 200 mcg chewable tablet ~08/29/21 (Adult Multivitamin Gummies) Diabetic shoes #1 ea 03/11/21 12/01/24 Unknown Rx Custom Molded Orthotics #1 ea 11/13/21 12/01/24 Unknown Rx blood sugar diagnostic (OneTouch #100 ea 03/18/23 12/01/24 Unknown Rx Verio test strips) lancets 30 gauge and blood glucose #200 ea 10/07/23 12/01/24 Unknown Rx strips combo pack blood-glucose meter #1 ea 01/05/24 12/01/24 Unknown Rx pen needle, diabetic 31 gauge x #100 ea 06/16/24 12/01/24 Unknown Rx 5/16 allopurinol 300 mg tablet 300 mg PO DAILY #90 tabs 09/12/24 12/01/24 Unknown Rx fenofibrate 160 mg tablet 160 mg PO DAILY #90 tabs 09/12/24 12/01/24 Unknown Rx glimepiride 4 mg tablet 4 mg PO BID #180 tabs 09/12/24 12/01/24 Unknown Rx insulin glargine 100 unit/mL (3 60 unit (0.6 mL) SUBCUT BID #108 mL 09/12/24 12/01/24 Unknown Rx mL) subcutaneous pen (Basaglar KwikPen U-100 Insulin) pregabalin 150 mg capsule (Lyrica) 150 mg PO TID #270 caps 09/12/24 12/01/24 11/30/24 Rx sertraline 50 mg tablet 50 mg PO BID #180 tabs 09/12/24 12/01/24 Unknown Rx sitagliptin phosphate 50 1 tab PO BID #180 tabs 09/12/24 12/01/24 Unknown Rx mg-metformin 1,000 mg tablet (Janumet) testosterone cypionate 200 mg/mL 150 mg (0.75 mL) SUBCUT Q14D 2 09/15/24 12/01/24 Unknown Rx intramuscular oil months #3.75 mL blood-glucose meter,continuous #1 ea 11/17/24 12/01/24 Unknown Rx (Dexcom G7 Paranormal Investigator) blood-glucose sensor (Dexcom G7 #3 ea 11/17/24 12/01/24 Unknown Rx Sensor device) acarbose 25 mg tablet 25 mg PO TID 12/01/24 12/01/24 Unknown History enalapril maleate 20 mg tablet 20 mg PO BID 12/01/24 12/01/24 Unknown History hydrocodone 5 mg-acetaminophen 325 1 tab PO Q6H PRN Pain 12/01/24 12/01/24 Unknown History mg tablet omega-3 fatty acids 500 mg capsule 500 mg PO BID 12/01/24 12/01/24 Unknown History Allergies Allergy/AdvReac Type Severity Reaction Status Date / Time sulfasalazine Allergy ADR-Itching Verified 11/30/24 17:00 Current Medications Generic Name Dose Route Start Last Admin Trade Name Freq PRN Reason Stop Dose Admin Allopurinol 300 mg 12/01/24 09:00 12/01/24 08:38 Allopurinol 300 Mg Tablet PO 300 mg DAILY DONNY Administration Furosemide 20 mg 12/01/24 08:25 12/01/24 08:44 Furosemide 20 Mg Tablet PO 20 mg DAILY@0800 DONNY Administration Heparin Sodium (Porcine) 5,000 unit 11/30/24 21:22 12/01/24 08:37 Heparin 5,000 Unit/Ml Inj 1 Ml SUBCUT 5,000 unit Q12H DONNY Administration Dextrose 125 mls @ 750 mls/hr 11/30/24 21:22 12/01/24 17:22 D10w IV Infused PRN PRN Infusion Adult Acute Hypoglycemia Nursing Protocol Protocol Insulin Glargine 40 unit 12/01/24 09:00 12/01/24 18:13 Insulin Glargine 100 Units/1 Ml SUBCUT 40 unit BID DONNY Administration Insulin Human Lispro 0 unit 11/30/24 21:22 12/01/24 18:13 Insulin Lispro 100 Unit/1 Ml SUBCUT 4 unit WM&BEDTIME DONNY Administration Protocol Pregabalin 150 mg 12/01/24 15:00 12/01/24 15:12 Pregabalin 150 Mg Capsule PO 150 mg TID DONNY Administration Sertraline HCl 50 mg 12/01/24 09:00 12/01/24 18:13 Sertraline 50 Mg Tablet PO 50 mg BID DONNY Administration Sodium Bicarbonate 650 mg 11/30/24 21:05 12/01/24 15:12 Sodium Bicarbonate 650 Mg Tablet PO 650 mg TID DONNY Administration Sodium Polystyrene Sulfonate 15 gm 12/01/24 15:30 12/01/24 16:10 Sodium Polystyrene Sulfonate 15 Gm/60 Ml Btl PO 15 gm Q6H DONNY Administration PFSH Acute PFSH: Medical History DDD (degenerative disc disease) Lung nodule Diabetic peripheral vascular disease Entrapment of right ulnar nerve Hypersomnia Vitiligo Hypertension Gout CKD (chronic kidney disease) stage 2, GFR 60-89 ml/min Dyslipidemia Colostomy hernia Surgical History History of hip surgery History of ankle surgery H/O colectomy Family History Other Chronic kidney disease (CKD) Diabetes Hypertension Denies family history of Cancer Stroke Social History Smoking and tobacco/nicotine status: never used tobacco/nicotine Second hand smoke exposure: No Alcohol intake: current Alcohol intake frequency: holidays/special occasions only Substance/Drug Use: never Adopted: No Caregiver/support person: No Lives independently: Yes Household members: spouse Housing: House Marital status: Current occupational status: employed 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, 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 Do you think of yourself as: Straight/Heterosexual Current gender identity: Male Vitals/I&O/Wt Last Vital Signs Temp 97 F L 12/01/24 18:00 Pulse 55 L 12/01/24 18:00 Resp 23 H 12/01/24 18:00 BP 145/71 12/01/24 18:00 Pulse Ox 93 12/01/24 09:12 O2 Del Method Room Air 12/01/24 09:12 12/01/24 12/01/24 12/01/24 06:59 14:59 22:59 Intake Total 480 / 1480 450 / 450 625 / 1075 Output Total 1125 / 1125 1450 / 1450 Balance -645 / 355 -1000 / -1000 625 / -375 Weight last 48 hrs Weight 120.247 kg Weight 119.249 kg Weight 117.934 kg Physical Exam Narrative: awake ,alert , no distress S1S2 RRR per report Lungs clear per report Abd soft ,non tender No edema Data 12/01/24 01:33 12/01/24 17:58 A&P Assessment and plan (1) Acute hyperkalemia: 1. Persistent hyperkalemia: Likely due to recent CHIKA inhibitor use, ELIZABET. Type IV RTA possible in the setting of diabetes but urine pH should be lower Received calcium, dextrose and bicarbonate, awaiting repeat labs. ,-Will place on low potassium diet and add Bicitra 30 mL twice daily. . Her pain is surrounding the regimen that in his opinion -will check aldosterone and renin levels 2. Chronic kidney disease: Creatinine in the 1.3-1.5 range, stable, patient supposed to follow-up with nephrology as outpatient 3. Nongap metabolic acidosis: Add Bicitra as above 4. Second-degree AV block, transient 5. Insulin-dependent diabetes type 2 Patient evaluated using audiovisual cart. Time spent 40 minutes. PDMP PDMP Reviewed: Not Reviewed Consult Attestations Medical Necessity Statement: per leonides Coding Level of Care Code Acute Code for Chg Fwd Diagnoses Acute hyperkalemia E87.5
[2024-12-01 20:06] LABS: Anion Gap 17.2 (5-19); Blood Urea Nitrogen 33 mg/dL (8-23); Calcium 10.4 mg/dL (8.5-10.5); Carbon Dioxide 20 mmol/L (22-29); Chloride 105 mmol/L (98-107); Creatinine Clr Calc Pharmacy 72.1621; Glomerular Filtration Rate 47.7 mL/min (90-130); Glucose 125 mg/dL (65-115); Osmolality Calculated 293 mOsm/kg (285-295); Potassium 5.2 mmol/L (3.5-5.1); Sodium 137 mmol/L (136-145)
[2024-12-01] MEDS: FUROsemide 10 mg/mL SDV 4mL 40 MG IVP (20:32)
--- NOTE | 2024-12-01 20:40 | PM.CONSULT ---
Providers/Reason For Consult Consulting Physician/Specialty*: Heidi Riley MD Reason for Consult*: Higher degree atrioventricular AV block Mobitz type II Requesting Physician: Dr. 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 Today potassium is 5.7 he appeared to be in sinus rhythm with intermittent occasional type II heart block. He denies any prior history of presyncope or syncope. He denies in general any major symptoms. Medications/Allergies Home Medications ?Medication ?Instructions ?Recorded ?Confirmed ?Last Taken ?Type magnesium oxide See Rx Instructions .Route .COMPLEX 02/28/20 12/01/24 1 Day Ago History ~08/29/21 multivitamin with minerals-folic 200 mcg PO BID 02/28/20 12/01/24 1 Day Ago History acid 200 mcg chewable tablet ~08/29/21 (Adult Multivitamin Gummies) Diabetic shoes #1 ea 03/11/21 12/01/24 Unknown Rx Custom Molded Orthotics #1 ea 11/13/21 12/01/24 Unknown Rx blood sugar diagnostic (OneTouch #100 ea 03/18/23 12/01/24 Unknown Rx Verio test strips) lancets 30 gauge and blood glucose #200 ea 10/07/23 12/01/24 Unknown Rx strips combo pack blood-glucose meter #1 ea 01/05/24 12/01/24 Unknown Rx pen needle, diabetic 31 gauge x #100 ea 06/16/24 12/01/24 Unknown Rx 5/16 allopurinol 300 mg tablet 300 mg PO DAILY #90 tabs 09/12/24 12/01/24 Unknown Rx fenofibrate 160 mg tablet 160 mg PO DAILY #90 tabs 09/12/24 12/01/24 Unknown Rx glimepiride 4 mg tablet 4 mg PO BID #180 tabs 09/12/24 12/01/24 Unknown Rx insulin glargine 100 unit/mL (3 60 unit (0.6 mL) SUBCUT BID #108 mL 09/12/24 12/01/24 Unknown Rx mL) subcutaneous pen (Basaglar KwikPen U-100 Insulin) pregabalin 150 mg capsule (Lyrica) 150 mg PO TID #270 caps 09/12/24 12/01/24 11/30/24 Rx sertraline 50 mg tablet 50 mg PO BID #180 tabs 09/12/24 12/01/24 Unknown Rx sitagliptin phosphate 50 1 tab PO BID #180 tabs 09/12/24 12/01/24 Unknown Rx mg-metformin 1,000 mg tablet (Janumet) testosterone cypionate 200 mg/mL 150 mg (0.75 mL) SUBCUT Q14D 2 09/15/24 12/01/24 Unknown Rx intramuscular oil months #3.75 mL blood-glucose meter,continuous #1 ea 11/17/24 12/01/24 Unknown Rx (Dexcom G7 Lead Neurodiagnostic Technologist) blood-glucose sensor (Dexcom G7 #3 ea 11/17/24 12/01/24 Unknown Rx Sensor device) acarbose 25 mg tablet 25 mg PO TID 12/01/24 12/01/24 Unknown History enalapril maleate 20 mg tablet 20 mg PO BID 12/01/24 12/01/24 Unknown History hydrocodone 5 mg-acetaminophen 325 1 tab PO Q6H PRN Pain 12/01/24 12/01/24 Unknown History mg tablet omega-3 fatty acids 500 mg capsule 500 mg PO BID 12/01/24 12/01/24 Unknown History Allergies Allergy/AdvReac Type Severity Reaction Status Date / Time sulfasalazine Allergy ADR-Itching Verified 11/30/24 17:00 Current Medications Generic Name Dose Route Start Last Admin Trade Name Freq PRN Reason Stop Dose Admin Allopurinol 300 mg 12/01/24 09:00 12/01/24 08:38 Allopurinol 300 Mg Tablet PO 300 mg DAILY DONNY Administration Furosemide 20 mg 12/01/24 08:25 12/01/24 08:44 Furosemide 20 Mg Tablet PO 20 mg DAILY@0800 DONNY Administration Heparin Sodium (Porcine) 5,000 unit 11/30/24 21:22 12/01/24 20:35 Heparin 5,000 Unit/Ml Inj 1 Ml SUBCUT 5,000 unit Q12H DONNY Administration Dextrose 125 mls @ 750 mls/hr 11/30/24 21:22 12/01/24 17:22 D10w IV Infused PRN PRN Infusion Adult Acute Hypoglycemia Nursing Protocol Protocol Insulin Glargine 40 unit 12/01/24 09:00 12/01/24 18:13 Insulin Glargine 100 Units/1 Ml SUBCUT 40 unit BID DONNY Administration Insulin Human Lispro 0 unit 11/30/24 21:22 12/01/24 18:13 Insulin Lispro 100 Unit/1 Ml SUBCUT 4 unit WM&BEDTIME DONNY Administration Protocol Pregabalin 150 mg 12/01/24 15:00 12/01/24 15:12 Pregabalin 150 Mg Capsule PO 150 mg TID DONNY Administration Sertraline HCl 50 mg 12/01/24 09:00 12/01/24 18:13 Sertraline 50 Mg Tablet PO 50 mg BID DONNY Administration Sodium Bicarbonate 650 mg 11/30/24 21:05 12/01/24 20:36 Sodium Bicarbonate 650 Mg Tablet PO 650 mg TID DONNY Administration Sodium Polystyrene Sulfonate 15 gm 12/01/24 15:30 12/01/24 20:30 Sodium Polystyrene Sulfonate 15 Gm/60 Ml Btl PO 15 gm Q6H DONNY Administration PFSH Acute PFSH: Medical History DDD (degenerative disc disease) Lung nodule Diabetic peripheral vascular disease Entrapment of right ulnar nerve Hypersomnia Vitiligo Hypertension Gout CKD (chronic kidney disease) stage 2, GFR 60-89 ml/min Dyslipidemia Colostomy hernia Surgical History History of hip surgery History of ankle surgery H/O colectomy Family History Other Chronic kidney disease (CKD) Diabetes Hypertension Denies family history of Cancer Stroke Social History Smoking and tobacco/nicotine status: never used tobacco/nicotine Second hand smoke exposure: No Alcohol intake: current Alcohol intake frequency: holidays/special occasions only Substance/Drug Use: never Adopted: No Caregiver/support person: No Lives independently: Yes Household members: spouse Housing: House Marital status: Current occupational status: employed 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, 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 Do you think of yourself as: Straight/Heterosexual Current gender identity: Male Vitals/I&O/Wt Last Vital Signs Temp 97 F L 12/01/24 18:00 Pulse 55 L 12/01/24 18:00 Resp 23 H 12/01/24 18:00 BP 145/71 12/01/24 18:00 Pulse Ox 93 12/01/24 09:12 O2 Del Method Room Air 12/01/24 09:12 12/01/24 12/01/24 12/01/24 06:59 14:59 22:59 Intake Total 480 / 1480 450 / 450 625 / 1075 Output Total 1125 / 1125 1450 / 1450 Balance -645 / 355 -1000 / -1000 625 / -375 Weight last 48 hrs Weight 265 lb 1.6 oz Weight 262 lb 14.4 oz Weight 260 lb Physical Exam Const: OTHER: GENERAL: Patient is alert, awake and oriented x3. HEART: Regular S1 and S2. No murmur, rub or gallop. LUNGS: Clear to auscultate bilaterally. CENTRAL NERVOUS SYSTEM: Grossly nonfocal. EXTREMITIES: Lower extremities with out edema bilaterally. Data 12/01/24 01:33 12/01/24 19:00 A&P Assessment and plan (1) High degree atrioventricular block: (2) Acute hyperkalemia: (3) CKD (chronic kidney disease): Plan Will rule out reversible cause for AV block apparently possible hyperkalemia. Treatment of hyperkalemia as per medicine it is steadily declining and improving Discontinue enalapril Discontinue potassium related use of food and multivitamins Once potassium recovered normalized patient need to follow-up with primary care physician and general office worker He is not on any hari viet therefore most likely cause of Mobitz type II heart block could be reversible to assess this we recommend 30-day event monitor, if patient does not exhibit intermittent heart block after correction of potassium based upon his monitor result he will then be cleared for driving otherwise patient may require permanent pacemaker if there will not be any reversible cause for heart block PDMP PDMP Reviewed: Not Reviewed Consult Attestations Medical Necessity Statement: Patient require continuation hospitalization for about defined care. Coding Level of Care Code Acute Code for Chg Fwd Diagnoses High degree atrioventricular block I44.39 Acute hyperkalemia E87.5 CKD (chronic kidney disease) N18.9
[2024-12-01 20:48] LABS: Glucose Point of Care 177 mg/dL (70-110)
[2024-12-02] VITALS (20 sets, daily range): BP systolic 118–143; BP diastolic 52–84; PULSE 67–84; RESP 14–23; TEMP 35.9–37.1; O2SAT 94–97
[2024-12-02 01:21] LABS: Anion Gap 18.7 (5-19); Blood Urea Nitrogen 35 mg/dL (8-23); Calcium 9.7 mg/dL (8.5-10.5); Carbon Dioxide 22 mmol/L (22-29); Chloride 102 mmol/L (98-107); Creatinine Clr Calc Pharmacy 77.3165; Glomerular Filtration Rate 51.7 mL/min (90-130); Glucose 88 mg/dL (65-115); Osmolality Calculated 293 mOsm/kg (285-295); Potassium 4.7 mmol/L (3.5-5.1); Sodium 138 mmol/L (136-145)
[2024-12-02] MEDS: sodium polystyrene sulfonate 15 gm/60 mL Btl PO (04:28)
[2024-12-02 05:59] LABS: Basophils # 0.1 10^3/uL (0.0-0.1); Basophils % 0.6 %; Eosinophils % 0.1 %; Lymphocytes # 1.4 10^3/uL (0.8-4.8); Lymphocytes % 17.8 %; Mean Corpuscular HGB Conc 33.8 g/dL (30-55); Mean Corpuscular Hemoglobin 30.2 pg (27-33); Mean Corpuscular Volume 89.4 fl (82-101); Mean Platelet Volume 10.2 fL (7.4-10.4); Monocytes # 0.6 10^3/uL (0.2-0.9); Monocytes % 8.1 %; Neutrophils # 5.74 10^3/uL (1.8-7.7); Nucleated Red Blood Cells % 0 %; Platelet Count 165 10^3/cmm (157-399); Red Cell Distribution Width 15.1 % (12.1-15.1); White Blood Count 7.87 10^3/uL (3.29-11.43)
[2024-12-02 06:19] LABS: Alanine Aminotransferase 32 U/L (0-41); Albumin Level 4.2 g/dL (3.5-5.2); Alkaline Phosphatase 66 U/L (40-130); Anion Gap 17.9 (5-19); Aspartate Amino Transferase 29 U/L (0-40); Blood Urea Nitrogen 36 mg/dL (8-23); Carbon Dioxide 24 mmol/L (22-29); Chloride 101 mmol/L (98-107); Creatinine Clr Calc Pharmacy 67.6519; Globulin 3.4 g/dL (1.3-4.6); Glomerular Filtration Rate 44.3 mL/min (90-130); Glucose 95 mg/dL (65-115); Magnesium 1.4 mg/dL (1.7-2.3); Osmolality Calculated 294 mOsm/kg (285-295); Phosphorus 4.4 mg/dL (2.5-4.5); Potassium 4.9 mmol/L (3.5-5.1); Sodium 138 mmol/L (136-145); Total Bilirubin 0.5 mg/dL (0.15-1.2); Total Protein 7.6 g/dL (6.6-8.7)
[2024-12-02] MEDS: pregabalin 150 mg Capsule PO (06:58)
--- NOTE | 2024-12-02 07:50 | P.PN_ITS ---
Subjective 2 Subjective: no new c/o Medications: Reviewed: Yes Vitals/I&O/Wt Last Vital Signs Temp 98.2 F 12/02/24 04:31 Pulse 78 12/02/24 06:00 Resp 17 12/02/24 05:00 BP 143/79 12/02/24 05:00 Pulse Ox 95 12/02/24 06:00 O2 Del Method Room Air 12/02/24 06:00 12/01/24 12/02/24 12/02/24 22:59 06:59 14:59 Intake Total 1105 / 1555 480 / 2035 Output Total 1075 / 2525 500 / 3025 Balance 30 / -970 -20 / -990 Weight last 48 hrs Weight 117.753 kg Weight 120.247 kg Weight 119.249 kg Weight 117.934 kg Physical Exam 2 Narrative: awake ,alert , no distress S1S2 RRR per report Lungs clear per report Abd soft ,non tender No edema Data 12/02/24 05:50 12/02/24 05:50 A&P Assessment and plan (1) Acute hyperkalemia: 1. Persistent hyperkalemia: Likely due to recent CHIKA inhibitor use, ELIZABET. Type IV RTA possible in the setting of diabetes but urine pH should be lower Received calcium, dextrose and bicarbonate, ,-on low potassium diet and added Bicitra 30 mL twice daily. K improved -will check aldosterone and renin levels 2. Chronic kidney disease: Creatinine in the 1.3-1.6 range, stable, patient supposed to follow-up with nephrology as outpatient 3. [place] metabolic acidosis: Add Bicitra as above 4. Second-degree AV block, transient 5. Insulin-dependent diabetes type 2 Patient evaluated using audiovisual cart. Time spent 40 minutes. PDMP PDMP Reviewed: Not Reviewed Attestations 2 Medical Necessity Statement*: per leonides Coding Level of Care Code Acute Code for Chg Fwd Diagnoses Acute hyperkalemia E87.5
[2024-12-02 07:52] LABS: Glucose Point of Care 118 mg/dL (70-110)
--- NOTE | 2024-12-02 09:05 | PC.NURSE ---
Discharge delay related to waiting on BMP, potassium level specifically, for final approval of discharge while discharge orders have been entered at this time.
[2024-12-02] MEDS: FUROsemide 20 mg Tablet PO (09:35)
[2024-12-02] MEDS: allopurinol 300 mg Tablet PO (09:36)
[2024-12-02] MEDS: heparin 5,000 unit/mL INJ 1 mL 5000 UNIT SUBCUT (09:36)
[2024-12-02] MEDS: citric acid-sodium citrate 30 mL UDC PO (09:36)
[2024-12-02] MEDS: sertraline 50 mg Tablet PO (09:36)
[2024-12-02] MEDS: insulin glargine 100 units/1 mL 40 UNIT SUBCUT (09:41)
[2024-12-02 11:31] LABS: Glucose Point of Care 232 mg/dL (70-110)
--- NOTE | 2024-12-02 11:41 | P.DS_ITS ---
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 Patient required insulin/D50/calcium gluconate twice for hyperkalemia, managed on Kayexalate, Bicitra, nephrology consulted. Overall patient clinically improved, remained asymptomatic no chest pain, palpitations, potassium discharge 4.9. Will be discharged on Lasix 40 mg daily Bicitra, with close follow-up with a primary care provider to recheck potassium levels, patient's CHIKA inhibitor was discontinued Patient's hospitalization was complicated by second-degree type II AV block likely secondary to hyperkalemia, he had to episodes of this during his hyperkal emia, he has not had any episodes since then, cardiac echo EF 50 to 55%, cardiology was consulted, will be discharged with an event monitor in place. Patient was advised if he has any chest pain or palpitations or lightheadedness to me to go to the emergency room. Given patient's profession, patient will not be cleared for work until he completes a 30-day event monitor and follow-up with cardiology. If his event monitor does show recurrence of his AV block he will likely require pacemaker placement. Discussed morbidity and mortality associate with AV block, he voices understanding all questions answered, agreed to proceed. Physical Exam Const: COMMON NORMALS: no acute distress and patient oriented x3 Resp: COMMON NORMALS: normal respiratory effort, No retractions, No use of accessory muscles and clear to auscultation bilaterally AUSCULTATION: clear to auscultation bilaterally Cardio: COMMON NORMALS: regular rate, regular rhythm, S1 normal heart sound present and S2 normal heart sound present RATE: regular rate RHYTHM: regular rhythm HEART SOUNDS: S1 normal heart sound present and S2 normal heart sound present GI: COMMON NORMALS: Normal to inspection, nondistended, normoactive bowel sounds present and non-tender Extremity: COMMON NORMALS: no pedal edema Neuro: COMMON NORMALS: patient oriented x3 Psych: COMMON NORMALS: mental status grossly normal Discharge Data Studies Completed and Pending Completed Studies During Hospitalization Category Date Time Status CV. echo complete* [id number] Routine Ultrasound 11/30/24 22:00 Completed Pending at discharge Category Date Time Status Aldosterone Routine Lab 12/01/24 19:36 Received BMP [Basic Metabolic Panel] Stat Lab 12/02/24 11:13 Ordered Complete Blood Count w/Auto AM LABS Lab 12/03/24 04:00 Ordered Complete Blood Count w/Auto AM LABS Lab 12/04/24 04:00 Ordered Comprehensive Metabolic Panel AM LABS Lab 12/03/24 04:00 Ordered Comprehensive Metabolic Panel AM LABS Lab 12/04/24 04:00 Ordered Magnesium AM LABS Lab 12/03/24 04:00 Ordered Magnesium AM LABS Lab 12/04/24 04:00 Ordered Phosphorus AM LABS Lab 12/03/24 04:00 Ordered Phosphorus AM LABS Lab 12/04/24 04:00 Ordered Plasma Renin Activity LC/MS/MS Routine Lab 12/01/24 01:33 Received Laboratory Results WBC 7.87 10^3/uL (3.29-11.43) 12/02/24 05:50 RBC 4.70 10^6/uL (3.85-5.65) 12/02/24 05:50 Hgb 14.20 g/dL (11.27-16.99) 12/02/24 05:50 Hct 42.0 % (37-53) 12/02/24 05:50 MCV 89.4 fl (82-101) 12/02/24 05:50 MCH 30.2 pg (27-33) 12/02/24 05:50 MCHC 33.8 g/dL (30-55) 12/02/24 05:50 RDW 15.1 % (12.1-15.1) 12/02/24 05:50 Plt Count 165 10^3/cmm (157-399) 12/02/24 05:50 MPV 10.2 fL (7.4-10.4) 12/02/24 05:50 Neut % (Auto) 73.0 % 12/02/24 05:50 Lymph % (Auto) 17.8 % 12/02/24 05:50 [place] % (Auto) 8.1 % 12/02/24 05:50 Eos % (Auto) 0.1 % 12/02/24 05:50 Baso % (Auto) 0.6 % 12/02/24 05:50 Neut # (Auto) 5.74 10^3/uL (1.8-7.7) 12/02/24 05:50 Lymph # (Auto) 1.4 10^3/uL (0.8-4.8) 12/02/24 05:50 [place] # (Auto) 0.6 10^3/uL (0.2-0.9) 12/02/24 05:50 Eos # (Auto) 0.0 10^3/uL (0.0-0.8) 12/02/24 05:50 Baso # (Auto) 0.1 10^3/uL (0.0-0.1) 12/02/24 05:50 Nucleated RBC % (auto) 0 % 12/02/24 05:50 Nucleated RBCs # 0.0 /100WBC 12/02/24 05:50 Sodium 138 mmol/L (136-145) 12/02/24 05:50 Potassium 4.9 mmol/L (3.5-5.1) 12/02/24 05:50 Chloride 101 mmol/L (98-107) 12/02/24 05:50 Carbon Dioxide 24 mmol/L (22-29) 12/02/24 05:50 Anion Gap 17.9 (5-19) 12/02/24 05:50 BUN 36 mg/dL (8-23) H 12/02/24 05:50 Creatinine 1.6 mg/dL (0.7-1.2) H 12/02/24 05:50 GFR Calculation 44.3 mL/min (90-130) L 12/02/24 05:50 Glucose 95 mg/dL (65-115) 12/02/24 05:50 POC Glucose 232 mg/dL (70-110) H 12/02/24 11:28 Calculated Osmolality 294 mOsm/kg (285-295) 12/02/24 05:50 Uric Acid 3.5 mg/dL (3.4-7.0) 12/01/24 17:58 Calcium 10.0 mg/dL (8.5-10.5) 12/02/24 05:50 Phosphorus 4.4 mg/dL (2.5-4.5) 12/02/24 05:50 Magnesium 1.4 mg/dL (1.7-2.3) L 12/02/24 05:50 Total Bilirubin 0.5 mg/dL (0.15-1.2) 12/02/24 05:50 AST 29 U/L (0-40) 12/02/24 05:50 ALT 32 U/L (0-41) 12/02/24 05:50 Alkaline Phosphatase 66 U/L (40-130) 12/02/24 05:50 Creatine Kinase 83 U/L (39-308) 12/01/24 17:58 Troponin T Baseline 23 ng/L (0-15) H 11/30/24 19:25 Troponin T 120 Minute 22.19 ng/L (0-15) H 11/30/24 21:36 Delta Troponin T -0.81 ABS# (0-10) L 11/30/24 21:36 Troponin T Hi Sens 6Hr 24.19 ng/L (0-15) H 12/01/24 01:33 Troponin T Hi Sens 6Hr Delta 1.19 ng/L (0-12) 12/01/24 01:33 C-Reactive Protein 3.0 mg/L (0.0-4.9) 12/01/24 01:33 Total Protein 7.6 g/dL (6.6-8.7) 12/02/24 05:50 Albumin 4.2 g/dL (3.5-5.2) 12/02/24 05:50 Globulin 3.4 g/dL (1.3-4.6) 12/02/24 05:50 Vitamin B12 > 2000 pg/mL (232-1245) H 11/30/24 21:35 TSH 3.05 uIU/mL (0.27-4.20) 11/30/24 21:35 Ur Random Microalbumin 1 ug/dL (0-20) 12/01/24 04:17 Ur Random Sodium 62 mmol/L 12/01/24 04:17 Ur Random Potassium 33 mmol/L 12/01/24 04:17 Ur Random Chloride 67 mmol/L 12/01/24 04:17 Urine Creatinine 79 mg/dL (39-259) 12/01/24 04:17 Urine Creatinine 79 mg/dL (39-259) 12/01/24 04:17 Microalb/Creat Ratio 13 mg/dL (0-20) 12/01/24 04:17 Vitals Last Vital Signs Temp 98.7 F 12/02/24 07:30 Pulse 76 12/02/24 10:00 Resp 23 H 12/02/24 10:00 BP 142/82 12/02/24 10:00 Pulse Ox 95 12/02/24 10:00 O2 Del Method Room Air 12/02/24 10:00 Discharge Plan Discharge Patient Disposition: Home Condition: Stable Prescriptions: New furosemide 20 mg Tablet 40 mg PO DAILY@0800 30 Days Qty: 60 0RF sodium citrate-citric acid 500-334 mg/5 mL Solution 30 ml PO BID 30 Days Qty: 1800 0RF Continued (DME) OneTouch Verio test strips Strip See Rx Instructions .ROUTE .COMPLEX Qty: 100 6RF Dose Instruction: USE 1 STRIP TO CHECK GLUCOSE 4 TIMES DAILY *E11.42* Rx Instructions: USE 1 STRIP TO CHECK GLUCOSE 4 TIMES DAILY *E11.42* testosterone cypionate 200 mg/mL oil 150 mg SUBCUT Q14D 60 Days Qty: 3.75 0RF fenofibrate 160 mg tablet 160 mg PO DAILY Qty: 90 1RF pregabalin [Lyrica] 150 mg capsule 150 mg PO TID Qty: 270 1RF sertraline 50 mg tablet 50 mg PO BID Qty: 180 1RF allopurinol 300 mg tablet 300 mg PO DAILY Qty: 90 1RF Janumet 50-1,000 mg tablet 1 tab PO BID Qty: 180 1RF insulin glargine [Basaglar KwikPen U-100 Insulin] 100 unit/mL (3 mL) insulin pen 60 unit SUBCUT BID Qty: 108 1RF omega-3 fatty acids 500 mg Capsule 500 mg PO BID hydrocodone-acetaminophen 5-325 mg tablet 1 tab PO Q6H PRN (Reason: Pain) acarbose 25 mg tablet 25 mg PO TID Discontinued glimepiride 4 mg tablet 4 mg PO BID Qty: 180 1RF multivit with min-folic acid [Adult Multivitamin Gummies] 200 mcg Tablet,Chewable 200 mcg PO BID magnesium oxide 400 mg magnesium Capsule See Rx Instructions .ROUTE .COMPLEX Rx Instructions: 1 CAP IN THE AM AND 2 CAPS AT BEDTIME enalapril maleate 20 mg tablet 20 mg PO BID No Action (DME) Diabetic shoes See Rx Instructions .ROUTE .MEDSUPPLY Qty: 1 0RF Rx Instructions: With 3 pairs of inserts, made by [employer] (DME) Custom Molded Orthotics See Rx Instructions .Route .MEDSUPPLY Qty: 1 0RF Rx Instructions: As directed ([facility] [facility] [place] Dexcom G7 Sensor Device See Rx Instructions .Route Qty: 3 1RF Rx Instructions: change sensor every 10 days ([facility] [place] Dexcom G7 Ux Interaction Designer Misc See Rx Instructions .Route Qty: 1 0RF Rx Instructions: As directed ([facility] [place] lancets-blood glucose strips 30 gauge combo pack See Rx Instructions .ROUTE .MEDSUPPLY Qty: 200 6RF Rx Instructions: As directed Checking four times a day. Now on insulin (DME) blood-glucose meter Kit See Rx Instructions .Route Qty: 1 0RF Rx Instructions: As directed Verio One Touch Reflect Glucometer ([facility] [place]) pen needle, diabetic 31 gauge x 5/16 needle See Rx Instructions .ROUTE .COMPLEX Qty: 100 2RF Dose Instruction: USE DIRECTED Rx Instructions: USE DIRECTED Discharge Orders: Discharge Order (Routine); Ordered 12/02/24 Ordered By: Ulysses Adorno Other Ambulatory Orders: MCT/Event Monitor 30 Days (Routine) Timeframe: 1 Day Facility: [facility] - Location: Radiology Ordered By: Ulysses Adorno Referrals: Heidi Riley MD [Physician] - 12/08/24 1:30 pm (may see for follow up nurse SENIOR ANALYST PROGRAMMER for this visit ) Mellisa Carvajal FNP [Primary Care Provider] - 12/06/24 12:00 pm Lashawn Garcia MD [Physician] - 12/21/24 12:15 pm (please keep this appoi ntment,and nursing staff will call with an earlier appointment,for post hospital follow up.) Armida Griffin MD [Referring] - 1 week (hyperkalemia, second degree av block) Discharge Diet: Cardiac Discharge Activity: Resume usual activity Patient Instructions: Furosemide (By mouth) (Lasix), Citric acid/Sodium Citrate (By mouth), Chronic Kidney Disease (DC), Potassium Content of Foods List (DC), Hyperkalemia (DC), Chest Pain Stoplight, Opioid Safety Activity Restrictions/Additional Instructions: - Low potassium diet -If you have any chest pain or palpitations please go to emergency room -You are not cleared to drive -You first have to complete 30 days of the event monitor -And follow-up with cardiology -If you do not have any reoccurrence of your high degree AV block and you follow-up with cardiology you should be cleared to drive after discussion with cardiology, but this is based upon what your test results show and your follow- up appointment with cardiology goes -If you do have reoccurrence of your high degree AV block, please immediately come back to the hospital as instructed by event monitor company -If you do have recurrence of your high degree AV block you will likely require pacemaker placement -Please follow-up with primary care provider to recheck your potassium on a weekly basis Discharge Attestations Time Spent in Discharge Care*: greater than 30 min Quality Metrics Clinical Quality Measures [ No reported AMI, CVA or VTE this stay] Coding Level of Care Code 93287 Total time (in minutes) for Discharge: 45 Diagnoses Acute hyperkalemia E87.5
[2024-12-02 12:19] LABS: Blood Urea Nitrogen 36 mg/dL (8-23); Carbon Dioxide 23 mmol/L (22-29); Chloride 101 mmol/L (98-107); Creatinine Clr Calc Pharmacy 71.4231; Glomerular Filtration Rate 47.7 mL/min (90-130); Glucose 229 mg/dL (65-115); Osmolality Calculated 298 mOsm/kg (285-295); Sodium 136 mmol/L (136-145)
[2024-12-02] MEDS: insulin lispro 100 unit/1 mL SUBCUT (12:46)
--- NOTE | 2024-12-02 13:45 | PC.NURSE ---
Pt discharged home with family member. Discharge instructions reviewed and discussed. Questions about diabetic medications to continue and stop confirmed and verified with Dr Adorno, then reviewed again with pt. Pt able to demonstrate use of sliding scale and insulin syringes. Pt discharged.
--- NOTE | 2024-12-02 15:39 | P.PN_ITS ---
<Statement entered by Heidi Riley MD - 12/02/24 20:31> Patient was evaluated and cared for in conjunction with an advanced practice practitioner. I personally examined the patient and reviewed the chart and all pertinent data including imaging, telemetry, and laboratory results. I discussed the patient in detail with the advanced practice practitioner. Please see their note for complete H&P testing result and agreed upon plan of care for the patient. GENERAL: Patient is alert, awake and oriented x3. HEART: Regular S1 and S2. No murmur, rub or gallop. LUNGS: Clear to auscultate bilaterally. CENTRAL NERVOUS SYSTEM: Grossly nonfocal. EXTREMITIES: Lower extremities with out edema bilaterally. [place] type II heart block intermittent Hyperkalemia Obesity Chronic kidney disease Potassium normalized Advised discontinuing lisinopril and reducing dietary intake of potassium 30-day event monitor Advised not to drive until cleared by the cardiology due to intermittent heart block Follow-up in the cardiology clinic after the Subjective 2 Subjective: Patient is doing well. Still has slightly peaked T waves but his potassium is normal now at 4.9. He has not had any bradycardic events. Currently in normal sinus rhythm. Vitals/I&O/Wt Last Vital Signs Temp 96.6 F L 12/02/24 13:46 Pulse 84 12/02/24 13:46 Resp 18 12/02/24 13:46 BP 129/79 12/02/24 13:46 Pulse Ox 94 12/02/24 13:46 O2 Del Method Room Air 12/02/24 10:00 12/02/24 12/02/24 12/02/24 06:59 14:59 22:59 Intake Total 480 / 2035 500 / 500 Output Total 500 / 3025 500 / 500 Balance -20 / -990 0 / 0 Weight last 48 hrs Weight 259 lb 9.6 oz Weight 265 lb 1.6 oz Weight 262 lb 14.4 oz Weight 260 lb Physical Exam 2 Narrative: General: No apparent distress, healthy appearing, well nourished Muskuloskeletal: Full ROM Lymphatic: no lymphedema noted Respiratory: Normal respiratory effort, clear to auscultation bilaterally throughout all lung barcenas, no use of accessory muscles Cardio: No JVD, regular rate, regular rhythm, S1 S2 normal, no murmurs, peripheral pulses 2+ radial palpated bilaterally GI: Normal to inspection, nondistended Extremities: Full ROM, normal, normal capillary refill, no cyanosis or edema Neuro: Alert and oriented x4, no focal motor deficits Psych: Affect normal, denies suicidal ideation, mental status grossly normal Skin: No rashes or lesions noted, no wounds Data 12/02/24 05:50 12/02/24 11:23 A&P Assessment and plan (1) High degree atrioventricular block: (2) Acute hyperkalemia: (3) CKD (chronic kidney disease): Plan Patient may have had a reversible cause of type II block caused by hyperkalemia. Patient may go home from cardiology standpoint with an event monitor . 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 Discontinue enalapril Discontinue potassium related use of food and multivitamins We will follow up on his 30 day monitor result to possibly be cleared for driving otherwise patient may require permanent pacemaker if there will not be any reversible cause for heart block. PDMP PDMP Reviewed: Not Reviewed Attestations 2 Medical Necessity Statement*: Patient ok to discharge with 30 day event monitor from cardiology standpoint. May not drive until released to do so by cardiology. F/U with us in 1 month. Coding Level of Care Code Acute Code for g Fwd Diagnoses High degree atrioventricular block I44.39 Acute hyperkalemia E87.5 CKD (chronic kidney disease) N18.9
[2024-12-09 00:10] LABS: Plasma Renin Activity LC/MS/MS 10.08 ng/mL/h (0.25-5.82)
== END 2024-12-02 13:49 | disposition home or self-care (01) | DRG 641 ==
LOC: ER 20:48 → ICU 12-01 02:22 → MEDSURG 12-01 07:48
PROVIDERS: Hospitalist; Admitting Provider Internal Medicine; Emergency Provider Emergency Medicine; PCP Nurse Practitioner Family; Visit Provider Family Medicine
DX: E87.5 Hyperkalemia (principal); N17.9 Acute kidney failure, unspecified; I44.1 Atrioventricular block, second degree; E66.01 Morbid (severe) obesity due to excess calories; Z68.33 Body mass index [BMI] 33.0-33.9, adult; I12.9 Hypertensive chronic kidney disease with stage 1 through stage 4 chronic kidney disease, or unspecified chronic kidney disease; E11.22 Type 2 diabetes mellitus with diabetic chronic kidney disease; N18.2 Chronic kidney disease, stage 2 (mild); Z79.4 Long term (current) use of insulin; Z90.49 Acquired absence of other specified parts of digestive tract; Z79.84 Long term (current) use of oral hypoglycemic drugs; E11.51 Type 2 diabetes mellitus with diabetic peripheral angiopathy without gangrene; E11.42 Type 2 diabetes mellitus with diabetic polyneuropathy; M10.9 Gout, unspecified; E78.5 Hyperlipidemia, unspecified; E87.4 Mixed disorder of acid-base balance; Z79.891 Long term (current) use of opiate analgesic
CPT/HCPCS: 36415; 36416; 80048; 80053; 82044; 82088; 82436; 82550; 82570; 82607; 82962; 83735; 84100; 84132; 84133; 84244; 84300; 84443; 84484; 84550; 85025; 86140; 93005; 93306; 96361; 96372; 96374; 96375; 99285; J0612; J1644; J1815; J1940; J7030; J7799; Q3014

== ENCOUNTER → 2024-12-06 12:53 | Outpatient (BNVA) | payer OTHER, SELFPAY | PROVIDERS: Family Provider Nurse Practitioner Family; PCP Nurse Practitioner Family; Visit Provider Nurse Practitioner Family | DX: E87.5 Hyperkalemia (principal) | CPT/HCPCS: 80048 ==

== ENCOUNTER 2024-12-12 16:14 | Outpatient (CLI) | payer OTHER, SELFPAY ==
[2024-12-12 17:40] LABS: Blood Urea Nitrogen 39 mg/dL (8-23); Calcium 9.8 mg/dL (8.5-10.5); Carbon Dioxide 28 mmol/L (22-29); Chloride 99 mmol/L (98-107); Glomerular Filtration Rate 51.7 mL/min (90-130); Glucose 133 mg/dL (65-115); Osmolality Calculated 301 mOsm/kg (285-295); Sodium 140 mmol/L (136-145)
[2024-12-12 19:36] LABS: Anion Gap 17.4 (5-19); Potassium 4.4 mmol/L (3.5-5.1)
== END 2024-12-12 16:15 | disposition home or self-care (01) ==
PROVIDERS: Family Provider Nurse Practitioner Family; PCP Nurse Practitioner Family; Visit Provider Nurse Practitioner Family
DX: E87.5 Hyperkalemia (principal)
CPT/HCPCS: 36415; 80048

== ENCOUNTER → 2024-12-19 08:24 | Outpatient (BNVA) | payer OTHER, SELFPAY | PROVIDERS: Family Provider Nurse Practitioner Family; PCP Nurse Practitioner Family; Visit Provider Internal Medicine | DX: E87.5 Hyperkalemia (principal); R79.89 Other specified abnormal findings of blood chemistry | CPT/HCPCS: 80048; 84403 ==

== ENCOUNTER 2024-12-27 14:03 | Outpatient (CLI) | payer OTHER, SELFPAY ==
[2024-12-27 14:47] LABS: Anion Gap 15.4 (5-19); Blood Urea Nitrogen 26 mg/dL (8-23); Calcium 9.9 mg/dL (8.5-10.5); Carbon Dioxide 27 mmol/L (22-29); Chloride 99 mmol/L (98-107); Glomerular Filtration Rate 44.3 mL/min (90-130); Glucose 146 mg/dL (65-115); Osmolality Calculated 291 mOsm/kg (285-295); Potassium 4.4 mmol/L (3.5-5.1); Sodium 137 mmol/L (136-145)
== END 2024-12-27 14:04 | disposition home or self-care (01) ==
PROVIDERS: Family Provider Nurse Practitioner Family; PCP Nurse Practitioner Family; Visit Provider Nurse Practitioner Family
DX: N18.9 Chronic kidney disease, unspecified (principal)
CPT/HCPCS: 36415; 80048

== ENCOUNTER → 2025-01-02 11:14 | Outpatient (BNVA) | payer OTHER, SELFPAY | PROVIDERS: Family Provider Nurse Practitioner Family; PCP Nurse Practitioner Family; Visit Provider Nurse Practitioner Family | DX: E11.42 Type 2 diabetes mellitus with diabetic polyneuropathy (principal) | CPT/HCPCS: 80048; 84550 ==

== ENCOUNTER 2025-03-07 12:46 | Outpatient (CLI) | payer OTHER, SELFPAY ==
[2025-03-07 13:30] LABS: Estmated Average Glucose 157; Hemoglobin A1C 7.1 % (4.0-6.0)
[2025-03-07 13:48] LABS: Alanine Aminotransferase 16 U/L (0-41); Alkaline Phosphatase 98 U/L (40-130); Anion Gap 14.9 (5-19); Aspartate Amino Transferase 23 U/L (0-40); Blood Urea Nitrogen 20 mg/dL (8-23); Calcium 9.5 mg/dL (8.5-10.5); Carbon Dioxide 24 mmol/L (22-29); Chloride 103 mmol/L (98-107); Chol HDL Ratio 5.22 mg/dL (1.0-5.00); Cholesterol 167 mg/dL (0-200); Globulin 3.5 g/dL (1.3-4.6); Glomerular Filtration Rate 47.7 mL/min (90-130); Glucose 195 mg/dL (65-115); HDL Cholesterol 32 mg/dL (60-100); LDL Cholesterol Calculated 81 mg/dL (50-129); LDL HDL Ratio 2.53 RATIO (0.00-3.22); Osmolality Calculated 294 mOsm/kg (285-295); Potassium 3.9 mmol/L (3.5-5.1); Sodium 138 mmol/L (136-145); Total Bilirubin 0.6 mg/dL (0.15-1.2); Total Protein 7.5 g/dL (6.6-8.7); Triglycerides 269 mg/dL (0-150)
[2025-03-07 13:55] LABS: Testosterone Total 812.1 ng/dL (193-740)
[2025-03-07 14:07] LABS: Creatinine Urine, Random 46 mg/dL (39-259); Microalbumin Random Urine 15 ug/dL (0-20)
[2025-03-07 14:09] LABS: Microalbum Creatinine Ratio Ur 326 mg/dL (0-20)
[2025-03-08 12:45] LABS: Uric Acid 5.8 mg/dL (3.4-7.0)
== END 2025-03-07 12:47 | disposition home or self-care (01) ==
PROVIDERS: Internal Medicine Cardiovascular Disease; Family Provider Nurse Practitioner Family; PCP Nurse Practitioner Family; Visit Provider Internal Medicine
DX: N18.9 Chronic kidney disease, unspecified (principal); I10 Essential (primary) hypertension; E11.9 Type 2 diabetes mellitus without complications; Z79.4 Long term (current) use of insulin; R79.89 Other specified abnormal findings of blood chemistry
CPT/HCPCS: 36415; 80048; 80053; 80061; 82044; 83036; 84403; 84550

== ENCOUNTER 2025-03-21 15:25 | Outpatient (CLI) | payer OTHER, SELFPAY ==
[2025-03-21 17:09] LABS: Blood Urea Nitrogen 26 mg/dL (8-23); Calcium 9.4 mg/dL (8.5-10.5); Carbon Dioxide 21 mmol/L (22-29); Chloride 99 mmol/L (98-107); Glomerular Filtration Rate 47.7 mL/min (90-130); Glucose 335 mg/dL (65-115); NT Pro B Type Natriuretic Pept 38 pg/mL (0-125); Osmolality Calculated 304 mOsm/kg (285-295); Sodium 138 mmol/L (136-145)
[2025-03-21 17:11] LABS: Anion Gap 22.1 (5-19); Potassium 4.1 mmol/L (3.5-5.1)
== END 2025-03-21 15:26 | disposition home or self-care (01) ==
PROVIDERS: Family Provider Nurse Practitioner Family; PCP Nurse Practitioner Family; Visit Provider Internal Medicine Cardiovascular Disease
DX: I10 Essential (primary) hypertension (principal)
CPT/HCPCS: 36415; 80048; 83880

== ENCOUNTER → 2025-10-06 08:19 | Outpatient (BNVA) | payer OTHER, SELFPAY | PROVIDERS: Family Provider Nurse Practitioner Family; PCP Nurse Practitioner Family; Visit Provider Nurse Practitioner Family | DX: N18.9 Chronic kidney disease, unspecified (principal); E11.22 Type 2 diabetes mellitus with diabetic chronic kidney disease; R79.89 Other specified abnormal findings of blood chemistry; R53.83 Other fatigue; N52.9 Male erectile dysfunction, unspecified; E11.42 Type 2 diabetes mellitus with diabetic polyneuropathy; E78.5 Hyperlipidemia, unspecified | CPT/HCPCS: 80053; 80061; 82043; 83036; 84153; 84403; 84550; 85025 ==